=== PATIENT | female | born 1945 | race Caucasian/White ===

== ENCOUNTER 2024-09-09 17:06 | Outpatient (RCR) | payer MEDICARE, SELFPAY | END 2024-10-29 12:16 | disposition home or self-care (01) | LOC: PT 17:06 | PROVIDERS: PCP Family Medicine; Visit Provider Family Medicine | DX: R26.89 Other abnormalities of gait and mobility (principal); Z91.81 History of falling; W19.XXXD Unspecified fall, subsequent encounter | CPT/HCPCS: 97110; 97112; 97161 ==

== ENCOUNTER 2024-12-30 09:56 | Outpatient (OUT) | payer MEDICARE, SELFPAY ==
--- OUTSIDE RECORDS SUMMARY | 2024-12-18 23:59 | XMS_ITS | Continuity of Care Document ---
Author Organization [facility] Address [address] [place] [address] Care Team Providers Care School Counsellor Name Role Phone Rashad Calvillo Primary Care Physician Encounter ZOIE [id number] Date(s): 12/18/24 - 12/18/24 [facility] [address] [place] [id number]- Encounter Diagnosis Encounter to establish care with new provider(Discharge Diagnosis) - 12/18/24 BMI 27.0-27.9,adult(Discharge Diagnosis) - 12/18/24 Former smoker(Discharge Diagnosis) - 12/18/24 Anxiety(Discharge Diagnosis) - 12/18/24 HTN (hypertension)(Discharge Diagnosis) - 12/18/24 Discharge Disposition: Home (Routine DC) Attending Physician: PETE TORRES CNP Encounter Type: Clinic Allergies, Adverse Reactions, Alerts Substance Criticality Severity Reaction Reaction Severity Status penicillin G benzathine Syncope Active Assessment and Plan Future Appointments Appointment Date:12/24/2024 03:20:00 PM Scheduled Provider:PETE TORRES CNP Location:[facility] Appointment Type: Open Medications alprazolam 1 mg Tab 1 mg = 1 tab(s), Oral, TID, PRN for anxiety, # 30 tab(s), Refills(s) 0, Pharmacy: [facility], 161, cm, 12/18/24 9:23:00 EDT, Height/Length Dosing, 70.5, kg, 12/18/24 9:23:00 EDT, Weight Dosing Start Date: 12/18/24 Status: Ordered Quantity: 30.0 Unit: tab(s) Repeat number: 1 atorvastatin 20 mg Tab 20 mg, Oral, Daily, Refills(s) 0 Start Date: 09/02/24 Status: Ordered Repeat number: 1 buPROPion 300 mg/24 hours ER Tab 300 mg, Oral, Daily, Refills(s) 0 Start Date: 09/02/24 Status: Ordered Repeat number: 1 FLUoxetine 20 mg Cap 60 mg, Oral, Daily, Refills(s) 0 Start Date: 09/02/24 Status: Ordered Repeat number: 1 Linzess 145 mcg oral capsule 1 mcg, Oral, Once a day (at bedtime), Refills(s) 0 Start Date: 09/02/24 Status: Ordered Repeat number: 1 losartan 50 mg Tab 50 mg = 1 tab(s), Oral, Daily, # 90 tab(s), Refills(s) 1, Pharmacy: [facility], 161, cm, 12/18/24 9:23:00 EDT, Height/Length Dosing, 70.5, kg, 12/18/24 9:23:00 EDT, Weight Dosing Start Date: 12/18/24 Status: Ordered Quantity: 90.0 Unit: tab(s) Repeat number: 2 Indications: Essential (primary) hypertension; Anxiety disorder, unspecified; Personal history of nicotine dependence; Overweight; Persons encountering health services in other specified circumstances; Body mass index [BMI] 27.0-27.9, adult; Pantoprazole [address] Tab 40 mg, Oral, Once a day (at bedtime), Refills(s) 0 Start Date: 09/02/24 Status: Ordered Repeat number: 1 traZODONE 100 mg Tab 100 mg, Oral, Once a day (at bedtime), Refills(s) 0 Start Date: 09/02/24 Status: Ordered Repeat number: 1 Problem List Condition Confirmation Course Effective Dates Status H ealth Status Informant Anxiety Confirmed Active Overweight (BMI 25.0-29.9) Confirmed Active Constipation Confirmed Active Former smoker Confirmed Active Fall Confirmed Active Gastroesophageal reflux disease Confirmed Active HTN (hypertension) Confirmed Active Moderate major depression Confirmed Active BMI 27.0-27.9,adult Confirmed Active Procedures Procedure Date Related Diagnosis Body Site Status Hernia Completed Social History Social History Type Response Smoking Status Former smoker, quit more than 30 days ago; Tobacco Use: Former smoker 20 years ago;Never; Concerns about tobacco use in household: No; Smoking Cessation Yes entered on: 12/18/24 Sex Female Sex Representation Female (finding) Hospital Discharge Instructions Patient Education 12/18/2024 12:56:20 Managing Anxiety, Adult Managing Anxiety, Adult After being diagnosed with anxiety, you may be relieved to know why you have felt or behaved a certain way. You may also feel overwhelmed about the treatment ahead and what it will mean for your life. With care and support, you can manage your anxiety. How to manage lifestyle changes Understanding the difference between stress and anxiety Although stress can play a role in anxiety, it is not the same as anxiety. Stress is your body's reaction to life changes and events, both good and bad. Stress is often caused by something external, such as a deadline, test, or competition. It normally goes away after the event has ended and will last just a few hours. But, stress can be ongoing and can lead to more than just stress. Anxiety is caused by something internal, such as imagining a terrible outcome or worrying that something will go wrong that will greatly upset you. Anxiety often does not go away even after the eventis over, and it can become a long- term (chronic) worry. Lowering stress and anxiety Talk with your health care provider or a counselor to learn more about lowering anxiety and stress.They may suggest tension-reduction techniques, such as: ??? Music. Spend time creating or listening to music that you enjoy and that inspires you. ??? Mindfulness-based meditation. Practice being aware of your normal breaths while not trying to control your breathing. It can be done while sitting or walking. ??? Centering prayer. Focus on a word, phrase, or sacred image that means something to you and brings you peace. ??? Deep breathing. Expand your stomach and inhale slowly through your nose. Hold your breath for 3???5 seconds. Then breathe out slowly, letting your stomach muscles relax. ??? Self-talk. Learn to notice and spot thought patterns that lead to anxiety reactions. Change those patterns to thoughts that feel peaceful. ??? Muscle relaxation. Take time to tense muscles and then relax them. Choose a tension-reduction technique that fits your lifestyle and personality. These techniques take time and practice. Set aside 5???15 minutes a day to do them. Specialized therapists can offer counseling and training in these techniques. The training to help with anxiety may be covered by some insurance plans. Other things you can do to manage stress and anxiety include: ??? Keeping a stress diary. This can help you learn what triggers your reaction and then learn waysto manage your response. ??? Thinking about how you react to certain situations. You may not be able to control everything, but you can control your response. ??? Making time for activities that help you relax and not feeling guilty about spending your time in this way. ??? Doing visual imagery. This involves imagining or creating mental pictures to help you relax. ??? Practicing yoga. Through yoga poses, you can lower tension and relax. Medicines Medicines for anxiety include: ??? Antidepressant medicines. These are usually prescribed for long-term daily control. ??? Anti-anxiety medicines. These may be added in severe cases, especially when panic attacks occur. When used together, medicines, psychotherapy, and tension-reduction techniques may be the most effective treatment. Relationships Relationships can play a big part in helping you recover. Spend more time connecting with trusted friends and family members. Think about going to couples counseling if you have a partner, taking family education classes, or going to family therapy. Therapy can help you and others better understandyour anxiety. How to recognize changes in your anxiety Everyone responds differently to treatment for anxiety. Recovery from anxiety happens when symptomslessen and stop interfering with your daily life at home or work. This may mean that you will startto: ??? Have better concentration and focus. Worry will interfere less in your daily thinking. ??? Sleep better. ??? Be less irritable. ??? Have more energy. ??? Have improved memory. Try to recognize when your condition is getting worse. Contact your provider if your symptoms interfere with home or work and you feel like your condition is not improving. Follow these instructions at home: Activity ??? Exercise. Adults should: ??? Exercise for at least 150 minutes each week. The exercise should increase your heart rate and make you sweat (moderate-intensity exercise). ??? Do strengthening exercises at least twice a week. ??? Get the right amount and quality of sleep. Most adults need 7???9 hours of sleep each night. Lifestyle ??? Eat a healthy diet that includes plenty of vegetables, fruits, whole grains, low-fat dairy products, and lean protein. ??? Do not eat a lot of foods that are high in fats, added sugars, or salt (sodium). ??? Make choices that simplify your life. ??? Do not use any products that contain nicotine or tobacco. These products include cigarettes, chewing tobacco, and vaping devices, such as e-cigarettes. If you need help quitting, ask your provider. ??? Avoid caffeine, alcohol, and certain uypf-jfk-gduyspk cold medicines. These may make you feel worse. Ask your pharmacist which medicines to avoid. General instructions ??? Take gtuc-nrp-ebvcqjt and prescription medicines only as told by your provider. ??? Keep all follow-up visits. This is to make sure you are managing your anxiety well or if you need more support. Where to find support You can get help and support from: ??? Self-help groups. ??? Online and community organizations. ??? A trusted spiritual leader. ??? Couples counseling. ??? Family education classes. ??? Family therapy. Where to find more information You may find that joining a support group helps you deal with your anxiety. The following sources can help you find counselors or support groups near you: ??? Mental Health [place]: mentalhealthamerica.net ??? Anxiety and Depression Association of [place] (ADAA): adaa.org ??? National [place] on Mental Illness (BC): bc.org Contact a health care provider if: ??? You have a hard time staying focused or finishing tasks. ??? You spend many hours a day feeling worried about everyday life. ??? You are very tired because you cannot stop worrying. ??? You start to have headaches or often feel tense. ??? You have chronic nausea or diarrhea. Get help right away if: ??? Your heart feels like it is racing. ??? You have shortness of breath. ??? You have thoughts of hurting yourself or others. Get help right away if you feel like you may hurt yourself or others, or have thoughts about takingyour own life. Go to your nearest emergency room or: ??? Call 911. ??? Call the National Suicide Prevention Lifeline at or 544. This is open 24 hours aday. ??? Text the Crisis Text Line at 636862. This information is not intended to replace advice given to you by your health care provider. Make sure you discuss any questions you have with your health care provider. Document Revised: 03/14/2023 Document Reviewed: 09/26/2021 Elsevier Patient Education ?? 2023 [employer] Follow Up Care 09/02/2024 16:41:07 With:PETE TORRES CNP, FAM Address: [address] [place] [phone] Business (1) When:5 to 7 days Comments:Laboratory test results & abdominal pain Patient Care team information Care Team Personnel Name: Rajinder HUIZAR, Rashad Larose Member Role: Primary Care Physician Address: [address] [place] [address] [[email or web address]] Telecom: Care Team Related Persons Name: Grady Tillman Insurance Providers Guarantor name: Health Plan Information #: 1 Payer: NA Payer Identifier: [id number] Member Number: [id number] Group Number: [id number] Subscriber Identifier: [id number] Relationship to Subscriber: Self Coverage Type: MEDICARE Coverage Verification Date: 24 Telecom: CLIFF Address:
--- OUTSIDE RECORDS SUMMARY | 2024-12-18 23:59 | XMS_ITS | Continuity of Care Document ---
Author Organization [facility] Address Unknown Care Team Providers Care Shuttle Van Driver Name Role Phone Rashad Calvillo Primary Care Physician Encounter _[facility] [id number] Date(s): 12/18/24 - 12/18/[address] [place] [address]- Discharge Disposition: Home (Routine DC) Attending Physician: PETE TORRES CNP Admitting Physician: PETE TORRES CNP Encounter Type: Lab Drop off Allergies, Adverse Reactions, Alerts Substance Criticality Severity Reaction Reaction Severity Status penicillin G benzathine Syncope Active Assessment and Plan Future Appointments Appointment Date:12/24/2024 03:20:00 PM Scheduled Provider:PETE TORRES CNP Location:[facility] Appointment Type: Open Medications alprazolam 1 mg Tab 1 mg = 1 tab(s), Oral, TID, PRN for anxiety, # 30 tab(s), Refills(s) 0, Pharmacy: [facility], 161, cm, 12/18/24 9:23:00 EDT, Height/Length Dosing, [...] Daily, # 90 tab(s), Refills(s) 1, Pharmacy: [facility], 161, cm, 12/18/24 9:23:00 EDT, Height/Length Dosing, [...] Related Diagnosis Body Site Status Hernia Completed Results Laboratory List Name Date CBC w/ Auto Diff 12/18/24 Comprehensive Metabolic Panel (CMP) Lipid Panel 12/18/24 TSH With T4fr Reflex 12/18/24 eGFR 12/18/24 Most recent to oldest [Reference Range]: 1 A/G Ratio [1.1-2.2] 1.5 (12/18/24 10:10 AM) BUN/Creat Ratio [10-20] 17 (12/18/24 10:10 AM) AGAP [6-16 mEq/L] 13 mEq/L (12/18/24 10:10 AM) Albumin Lvl [3.3-5.0 gm/dL] 4.3 gm/dL (12/18/24 10:10 AM) Alk Phos [21-98 Int._Unit/L] 83 Int._Uni t/L (12/18/24 10:10 AM) ALT [6-46 Int._Unit/L] 22 Int._Unit/L (12/18/24 10:10 AM) AST [5-43 Int._Unit/L] 27 Int._Unit/L (12/18/24 10:10 AM) Basophil Auto [0.0-2.0 %] 0.5 % (12/18/24 10:10 AM) Bili Total [0.0-1.1 mg/dL] 0.6 mg/dL (12/18/24 10:10 AM) Chol [120-200 mg/dL] 170 mg/dL (12/18/24 10:10 AM) CO2 [21-31 mmol/L] 26 mmol/L (12/18/24 10:10 AM) Eos Auto [0.0-8.0 %] 2.7 % (12/18/24 10:10 AM) Glucose Lvl [55-199 mg/dL] 82 mg/dL (12/18/24 10:10 AM) Hct [34.0-46.0 %] 41.5 % (12/18/24 10:10 AM) HDL 56 mg/dL 1 *NA* (12/18/24 10:10 AM) Hgb [12.0-16.0 gm/dL] 13.8 gm/dL (12/18/24 10:10 AM) Lymph Auto [14.0-50.0 %] 23.4 % (12/18/24 10:10 AM) RBC [4.3-5.9 E12/L] 4.5 E12/L (12/18/24 10:10 AM) RDW [10.9-14.2 %] 15.1 % *HI* (12/18/24 10:10 AM) Sodium Lvl [135-145 mmol/L] 138 mmol/L (12/18/24 10:10 AM) Total Protein [6.0-7.8 gm/dL] 7.2 gm/dL (12/18/24 10:10 AM) Trig [<=149 mg/dL] 128 mg/dL (12/18/24 10:10 AM) TSH [0.34-5.60 mcIU/mL] 2.64 mcIU/mL (12/18/24 10:10 AM) MCH [27.0-34.0 pg] 31.0 pg (12/18/24 10:10 AM) MCHC [31.4-36.0 gm/dL] 33.3 gm/dL (12/18/24 10:10 AM) MCV [80.0-100.0 fL] 93.0 fL (12/18/24 10:10 AM) [place] Auto [4.0-14.0 %] 7.5 % (12/18/24 10:10 AM) MPV [6.4-10.8 fL] 8.8 fL (12/18/24 10:10 AM) Neutro Auto [36.0-75.0 %] 65.9 % (12/18/24 10:10 AM) BUN [5-21 mg/dL] 15 mg/dL (12/18/24 10:10 AM) Calcium Lvl [8.9-11.1 mg/dL] 9.5 mg/dL (12/18/24 10:10 AM) Platelet [150.0-500.0 E9/L] 350.0 E9/L (12/18/24 10:10 AM) Potassium Lvl [3.5-5.3 mmol/L] 4.0 mmol/ L (12/18/24 10:10 AM) WBC [4.0-11.0 E9/L] 6.6 E9/L (12/18/24 10:10 AM) LDL Direct [<=129 mg/dL] 90 mg/dL (12/18/24 10:10 AM) Chloride [101-111 mmol/L] 103 mmol/L (12/18/24 10:10 AM) [place] Absolute [0.2-1.0 E9/L] 0.5 E9/L (12/18/24 10:10 AM) Eos Absolute [0.0-0.5 E9/L] 0.2 E9/L (12/18/24 10:10 AM) Basophil Absolute [0.0-0.2 E9/L] 0.0 E9/ L (12/18/24 10:10 AM) Neutro Absolute [2.0-7.5 E9/L] 4.4 E9/L (12/18/24 10:10 AM) Lymph Absolute [1.0-4.0 E9/L] 1.5 E9/L (12/18/24 10:10 AM) eGFR [>=59 mL/min/1.73 m2] 64 mL/min/1.7 3 m2 (12/18/24 10:10 AM) Globulin [1.4-4.0 gm/dL] 2.9 gm/dL (12/18/24 10:10 AM) VLDL [7-40 mg/dL] 26 mg/dL (12/18/24 10:10 AM) Creatinine [0.5-1.3 mg/dL] 0.9 mg/dL (12/18/24 10:10 AM) 1Result Comment: '>= 60 LOW RISK' '<= 40 HIGH RISK' Social History Social History Type Response Smoking Status Former smoker, quit more than 30 days ago; Tobacco Use: Former smoker 20 years ago;Never; Concerns about tobacco use in household: No; Smoking Cessation Yes entered on: 12/18/24 Sex Female Sex Representation Female (finding) Patient Care team information Care Team Personnel Name: Rashad Calvillo MD Member Role: Primary Care Physician Address: [address] [place] [address] Telecom: Care Team Related Persons Name: Grady Tillman Insurance Providers Guarantor name: Health Plan Information #: 1 Payer: NA Payer Identifier: [id number] Member Number: [id number] Group Number: [id number] Subscriber Identifier: [id number] Relationship to Subscriber: Self Coverage Type: MEDICARE Coverage Verification Date: NA Telecom: NA Address: NA
--- NOTE | 2024-12-30 10:04 | XR_ITS ---
The [address] [address] Patient Name: MARY CARMEN ALCARAZ MRN: [id number] date: 1945 Sex: F Assigned Patient Location: [facility] Current Patient Location: [facility] Accession/Order Number: [id number] Exam Date: 12/30/2024 11:04 Report Date: 12/30/2024 11:06 At the request of: PETE TORRES NP Procedure: XR abdomen 1V SINGLE VIEW ABDOMEN CLINICAL DATA: Left-sided abdominal pain and fecal incontinence at night. COMPARISON: None Supine views of the abdomen and pelvis were obtained. There is air within the colon as well as mild to moderate stool, greater on the left. There is some small bowel air, without disproportionate distention. No soft tissue masses or suspect renal calculi are noted. The bony structures are osteopenic. There is subtle levoscoliotic curvature and endplate spurring. XR/XR abdomen 1V IMPRESSION: NONSPECIFIC, NONOBSTRUCTIVE BOWEL GAS PATTERN. Impression dictated by: Kylah Germain M.D. 12/30/2024 11:06 AM Dictation Location: [place] [address] Electronically authenticated by: [id number] Y Date: 12/30/2024 11:06
== END 2024-12-30 09:57 | disposition home or self-care (01) ==
LOC: RAD 09:58
PROVIDERS: PCP Nurse Practitioner Family; Visit Provider Nurse Practitioner Family
DX: R10.9 Unspecified abdominal pain (principal); R15.9 Full incontinence of feces
CPT/HCPCS: 74018

== ENCOUNTER 2025-02-07 18:02 | Emergency (ER) | payer MEDICARE, SELFPAY ==
[2025-02-07] VITALS (36 sets, daily range): BP systolic 89–152; BP diastolic 66–106; PULSE 74–101; TEMP 37–37.3; O2SAT 93–99; BMI 26.6
--- NOTE | 2025-02-07 18:10 | ECG_ITS ---
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
[2025-02-07 18:22] LABS: Hematocrit 36.2 % (36.0-48.0); Hemoglobin 11.9 g/dL (12.0-16.0); Immature Granulocytes Abs Auto 0.03 10^3/uL (0.00-0.03); Immature Granulocytes Pct Auto 0.3 % (0.0-0.5); Lymphocytes Absolute Auto 1.3 10^3/uL (1.2-3.8); Mean Corpuscular HGB Conc 32.9 g/dL (29.9-35.2); Mean Corpuscular Hemoglobin 31.6 pg (26.7-34.0); Mean Corpuscular Volume 96.0 fL (81.0-99.0); Platelet Count 301 10^3/uL (150-450); Red Blood Count 3.77 10^6/uL (4.20-5.40); White Blood Count 8.6 10^3/uL (4.0-11.0)
--- NOTE | 2025-02-07 18:28 | CT_ITS ---
The [address] [address] Patient Name: MARY CARMEN ALCARAZ MRN: [id number] date: 1945 Sex: F Assigned Patient Location: ED.MAIN Current Patient Location: ED.MAIN Accession/Order Number: [id number] Exam Date: 02/07/2025 19:15 Report Date: 02/07/2025 19:51 At the request of: JOSÉ LUIS CARMONA DO Procedure: CT abdomen pelvis w con CT Abdomen and Pelvis withcontrast TECHNIQUE: Axial imaging with 2-D reconstruction.1 cc of Omnipaque 300. The CT exam was performed using one or more the following dose reduction techniques: Automated exposure control, adjustment of the MA and/or Kv according to patient size, or use of the iterative reconstruction technique. COMPARISON: None History: Dizziness. Left shoulder pain. Recent colonoscopy. Tachycardia. LIMITATIONS: None LOWER THORAX Unremarkable LIVER: Unremarkable GALLBLADDER: No gallbladder abnormality identified. BILE DUCTS: No dilatation SPLEEN: Unremarkable PANCREAS: Unremarkable ADRENAL GLANDS: Unremarkable KIDNEYS:Unremarkable AORTA: No abdominal aortic aneurysm identified. Moderate atherosclerosis RETROPERITONEUM: No significant retroperitoneal abnormalities identified. MESENTERY:Unremarkable STOMACH:Unremarkable SMALL BOWEL: The small bowel loops are nondistended. APPENDIX: The appendix is normal. COLON: Diverticulosis. No extraluminal air seen. URINARY BLADDER: Urinary bladder is unremarkable. REPRODUCTIVE SYSTEM: Reproductive structures are unremarkable. PNEUMOPERITONEUM: Small foci of extraluminal air in region of splenic flexure. PERITONEAL FLUID:High density collection of fluid in the left upper quadrant adjacent to the spleen. High density fluid in the dependent portion of the pelvis. Small amount of fluid adjacent to the liver. BONY STRUCTURES: Unremarkable ABDOMINAL WALL: Unremarkable CT/CT abdomen pelvis w con IMPRESSION: Concern for hemoperitoneum with highest concentration in the left upper quadrant adjacent to the splenic flexure. Small regions of extraluminal air identified in the the splenic flexure. Impression dictated by: Ervin Westbrook M.D. 02/07/2025 7:51 PM Dictation [facility] Electron[facility] authenticated by: [id number] Y Date: 02/07/2025 19:51
--- NOTE | 2025-02-07 18:31 | XR_ITS ---
The [address] [address] Patient Name: MARY CARMEN ALCARAZ MRN: [id number] date: 1945 Sex: F Assigned Patient Location: ED.MAIN Current Patient Location: ED.MAIN Accession/Order Number: [id number] Exam Date: 02/07/2025 19:10 Report Date: 02/07/2025 19:37 At the request of: JOSÉ LUIS CARMONA DO Procedure: XR chest 1V Plain film chest Single view HISTORY: Dizziness. Left shoulder pain COMPARISON: None FINDINGS: SUPPORT DEVICES: None POSTSURGICAL CHANGES: None HEART: Within normal limits PULMONARY LORENZO: Within normal limits MEDIASTINUM: Unremarkable LUNGS AND PLEURA: No acute lung process, pleural effusion or pneumothorax identified. BONY STRUCTURES: Intact ADDITIONAL FINDINGS None XR/XR chest 1V IMPRESSION: No acute process. Impression dictated by: Ervin Westbrook M.D. 02/07/2025 7:37 PM Dictation Location: [employer] Electronically authenticated by: [id number] Y Date: 02/07/2025 19:37
[2025-02-07 18:38] LABS: Alanine Aminotransferase 36 U/L (14-59); Albumin Globulin Ratio 1.0; Albumin Level 3.4 g/dL (3.4-5.0); Alkaline Phosphatase 80 U/L (46-116); Anion Gap 15.5; Aspartate Amino Transferase 34 U/L (15-37); Blood Urea Nitrogen 16.0 mg/dL (7.0-18.0); Calcium 9.3 mg/dL (8.5-10.1); Carbon Dioxide 25.1 mmol/L (21.0-32.0); Chloride 106 mmol/L (98-107); Estimated GFR (African America 60 (>=60 mL/min/1.73m^2); Estimated GFR (Non-African Ame 49 (>=60 mL/min/1.73m^2); Globulin 3.3 g/dL; Glucose 175 mg/dL (74-106); Potassium 4.6 mmol/L (3.5-5.1); Sodium 142 mmol/L (136-145); Total Protein 6.7 g/dL (6.4-8.2)
[2025-02-07] MEDS: 0.9 % SODIUM CHLORIDE 1,000 ML 999 ML IV (19:00)
--- NOTE | 2025-02-07 19:36 | ED.GENADUL1 ---
Documented by User: Elio Chi DO 02/07/25 19:41 HPI HPI - General Adult General Chief complaint: Dizziness Stated complaint: CHEST PAIN Time Seen by Provider: 02/07/25 18:06 Source: patient Mode of arrival: ambulance History of Present Illness HPI narrative: Patient is an 80-year-old female presenting to the emergency department for concerns of dizziness and weakness. Patient states that she underwent routine colonoscopy today. She states the procedure went well, however when she went home, she felt weak and could not get out of the bathtub. Her family called EMS. She states she feels weak, likely because she has not eaten anything over the last 2 days. She denies any chest pain or shortness of breath. No nausea or vomiting. She endorses some mild abdominal discomfort. No constipation, diarrhea, or bloody stools. Per EMS, the patient's heart rate was in the 200s and believed she was in SVT. She was given 6 mg IV adenosine in the field, with resolution of her tachycardia. Patient now is currently asymptomatic, just feels slightly weak. Related Data Allergies Allergy/AdvReac Type Severity Reaction Status Date / Time Penicillins AdvReac Severe syncope Verified 02/07/25 18:04 Opioid HPI Opioid Management Most Recent Opioid Data: Last Pain Scale 10 02/07/25, 23:54 Last MAR Pain Assessment 02/07/25, 23:54 Review of Systems ROS Status of ROS 10 or more systems reviewed and unremarkable except as noted in history and below PFSH PFSH Social History Little interest or pleasure in doing things: not at all Feeling down, depressed, or hopeless: not at all Exam Narrative Exam Narrative: CONSTITUTIONAL: Well-appearing, answering questions and following commands appropriately SKIN: Was warm and dry. EYES: No conjunctival pallor EARS, NOSE, THROAT: Neck was supple. There was no jugular venous distention. RESPIRATORY: Clear to auscultation bilaterally, no wheezes, crackles, or stridor, no use of accessory muscles CARDIOVASCULAR: Normal rate and regular rhythm. There is no S3, S4, murmur, rub. GASTROINTESTINAL: Abdomen is mildly tender to palpation throughout with mild distention. No rebound tenderness or guarding. MUSCULOSKELETAL: There was no lower extremity edema, erythema, or tenderness. NEUROLOGIC: Patient is awake and alert. Equal strength in all extremities. Facies were symmetrical. Constitutional Vital Signs, click to edit/add: Last Vital Signs Temp 99.1 F 02/07/25 22:35 Pulse 95 H 02/07/25 22:35 Resp 18 02/07/25 22:35 BP 127/99 H 02/07/25 22:35 Pulse Ox 97 02/07/25 22:35 O2 Del Method Room Air 02/07/25 22:35 Course Vital Signs Vital signs: Vital Signs Temperature 98.6 F 02/07/25 18:04 Pulse Rate 78 02/07/25 18:04 Respiratory Rate 20 02/07/25 18:04 Blood Pressure 89/66 02/07/25 18:04 Pulse Oximetry 97 02/07/25 18:04 Temperature 99.1 F 02/07/25 22:35 Pulse Rate 95 H 02/07/25 22:35 Respiratory Rate 18 02/07/25 22:35 Blood Pressure 127/99 H 02/07/25 22:35 Pulse Oximetry 97 02/07/25 22:35 Oxygen Delivery Method Room Air 02/07/25 22:35 Medical Decision Making MDM Narrative Medical decision making narrative: Patient is an 80-year-old female presenting to the emergency department for generalized weakness after undergoing routine colonoscopy earlier today. According to EMS, the patient's heart rate was in the 200s and required 6 mg IV adenosine for suspected SVT. On arrival to MD, patient was placed on the manager monitoring that demonstrated normal sinus rhythm by my interpretation. She has a soft blood pressure of 89/66, but is otherwise hemodynamically stable and afebrile. She generally appears fatigued, but nontoxic and mentating appropriately. She has mild tenderness palpation throughout abdomen with mild distention, however no peritoneal signs or rebound tenderness. Differential diagnose includes dehydration, complications from colonoscopy such as microperforations, ACS, arrhythmia, or other electrolyte/metabolic derangement. IV was established and laboratory studies were obtained. CT abdomen/pelvis was ordered to further investigate. She was given 1 L bolus normal saline for rehydration. 12 Lead EKG: Normal sinus rhythm at a rate of 81. Normal axis. No ST segment elevations. QRS, MI, and QTc interval within normal limits. Final impression: normal sinus rhythm without evidence of acute myocardial ischemia My shift is now coming to an end. At the time of signout to Dr. Quiroga, laboratory studies and CT abdomen/pelvis were pending. Lab Data Labs: Lab Results 02/07/25 02/07/25 Range/Units 18:09 22:11 WBC 8.6 (4.0-11.0) 10^3/uL RBC 3.77 L (4.20-5.40) 10^6/uL Hgb 11.9 L (12.0-16.0) g/dL Hct 36.2 (36.0-48.0) % MCV 96.0 (81.0-99.0) fL MCH 31.6 (26.7-34.0) pg MCHC 32.9 (29.9-35.2) g/dL RDW 14.1 (11.0-15.0) % Plt Count 301 (150-450) 10^3/uL MPV 9.6 (9.5-13.5) fL Neut % (Auto) 78.5 H (43.0-75.0) % Lymph % (Auto) 14.6 L (20.5-60.0) % Tillman % (Auto) 6.1 (1.7-12.0) % Eos % (Auto) 0.3 L (0.9-7.0) % Baso % (Auto) 0.2 (0.2-2.0) % Neut # (Auto) 6.7 H (1.4-6.5) 10^3/uL Lymph # (Auto) 1.3 (1.2-3.8) 10^3/uL Tillman # (Auto) 0.5 (0.3-0.8) 10^3/uL Eos # (Auto) 0.0 (0.0-0.7) 10^3/uL Baso # (Auto) 0.0 (0.0-0.1) 10^3/uL Abs Immat Gran (auto) 0.03 (0.00-0.03) 10^3/uL Imm/Tot Granulo (auto) 0.3 (0.0-0.5) % Sodium 142 (136-145) mmol/L Potassium 4.6 (3.5-5.1) mmol/L Chloride 106 (98-107) mmol/L Carbon Dioxide 25.1 (21.0-32.0) mmol/L Anion Gap 15.5 BUN 16.0 (7.0-18.0) mg/dL Creatinine 1.07 H (0.55-1.02) mg/dL Est GFR ( Amer) 60 (>=60 mL/min/1.73m^2) Est GFR (Non-Af Amer) 49 L (>=60 mL/min/1.73m^2) BUN/Creatinine Ratio 15.0 Glucose 175 H (74-106) mg/dL Calcium 9.3 (8.5-10.1) mg/dL Total Bilirubin 0.5 (0.2-1.0) mg/dL AST 34 (15-37) U/L ALT 36 (14-59) U/L Alkaline Phosphatase 80 (46-116) U/L Troponin I High Sens 13.4 (4.0-51.3) pg/mL Total Protein 6.7 (6.4-8.2) g/dL Albumin 3.4 (3.4-5.0) g/dL Globulin 3.3 g/dL Albumin/Globulin Ratio 1.0 Urine Color Lt. yellow (YELLOW) Urine Clarity Sl cloudy (CLEAR) Urine pH 5.5 (5.0-9.0) Ur Specific [employer] 1.010 (1.005-1.025) Urine Protein Negative (NEG/TRACE) mg/dL Urine Glucose (UA) Negative (NEGATIVE) mg/dL Urine Ketones Negative (NEGATIVE) mg/dL Urine Occult Blood Trace-i (NEGATIVE) Urine Nitrite Negative (NEGATIVE) Urine Bilirubin Negative (NEGATIVE) Urine Urobilinogen 0.2 (0.2-1.0) EU/dL Ur Leukocyte Esterase Negative (NEGATIVE) Urine RBC 2-5 A (0-2) #/HPF Urine WBC 0-2 A (NONE SEEN) #/HPF Ur Squamous Epith Cells None seen (NONE/RARE) #/LPF Urine Crystals None seen (None Seen) #/HPF Urine Bacteria None seen (NONE SEEN) #/HPF Urine Casts None seen (NONE SEEN) #/LPF Urine Mucus None seen (NONE SEEN) Ur Culture Indicated? No Discharge Plan Discharge Chief Complaint: Dizziness Clinical Impression: Abdominal pain, Colon perforation Patient Disposition: [facility] Documented by User: Cristi Quiroga MD 02/08/25 00:03 HPI HPI - General Adult General Chief complaint: Dizziness Stated complaint: CHEST PAIN Time Seen by Provider: 02/07/25 18:06 Related Data Allergies Allergy/AdvReac Type Severity Reaction Status Date / Time Penicillins AdvReac Severe syncope Verified 02/07/25 18:04 Opioid HPI Opioid Management Most Recent Opioid Data: Last Pain Scale 10 02/07/25, 23:54 Last MAR Pain Assessment 02/07/25, 23:54 PFSH PFSH Social History Little interest or pleasure in doing things: not at all Feeling down, depressed, or hopeless: not at all Exam Constitutional Vital Signs, click to edit/add: Last Vital Signs Temp 99.1 F 02/07/25 22:35 Pulse 95 H 02/07/25 22:35 Resp 18 02/07/25 22:35 BP 127/99 H 02/07/25 22:35 Pulse Ox 97 02/07/25 22:35 O2 Del Method Room Air 02/07/25 22:35 Course Vital Signs Vital signs: Vital Signs Temperature 98.6 F 02/07/25 18:04 Pulse Rate 78 02/07/25 18:04 Respiratory Rate 20 02/07/25 18:04 Blood Pressure 89/66 02/07/25 18:04 Pulse Oximetry 97 02/07/25 18:04 Temperature 99.1 F 02/07/25 22:35 Pulse Rate 95 H 02/07/25 22:35 Respiratory Rate 18 02/07/25 22:35 Blood Pressure 127/99 H 02/07/25 22:35 Pulse Oximetry 97 02/07/25 22:35 Oxygen Delivery Method Room Air 02/07/25 22:35 Medical Decision Making MDM Narrative Medical decision making narrative: Patient is an 80-year-old female presenting to the emergency department for generalized weakness after undergoing routine colonoscopy earlier today. According to EMS, the patient's heart rate was in the 200s and required 6 mg IV adenosine for suspected SVT. On arrival to MD, patient was placed on the manager monitoring that demonstrated normal sinus rhythm by my interpretation. She has a soft blood pressure of 89/66, but is otherwise hemodynamically stable and afebrile. She generally appears fatigued, but nontoxic and mentating appropriately. She has mild tenderness palpation throughout abdomen with mild distention, however no peritoneal signs or rebound tenderness. Differential diagnose includes dehydration, complications from colonoscopy such as microperforations, ACS, arrhythmia, or other electrolyte/metabolic derangement. IV was established and laboratory studies were obtained. CT abdomen/pelvis was ordered to further investigate. She was given 1 L bolus normal saline for rehydration. 12 Lead EKG: Normal sinus rhythm at a rate of 81. Normal axis. No ST segment elevations. QRS, MI, and QTc interval within normal limits. Final impression: normal sinus rhythm without evidence of acute myocardial ischemia My shift is now coming to an end. At the time of signout to Dr. Quiroga, laboratory studies and CT abdomen/pelvis were pending. CT returns with finding of hemoperitoneum left upper quad. Discussed with gastroenterology at [facility] who recommended contacting surgery at [facility]. Discussed with Surgery at [facility] who stated That [facility] does not have the availability of interventionalist Radiologist and recommended transfer to a different facility. Discussed with [facility] Surgery who also did not feel she was a candidate for their hospital. discussed with [facility] Trauma surgeon who felt this was a perforation and did not need trauma eval. Spoke to transportation escort surgery at [facility] again who recommended transfer to [facility]. Dr Pierce contacted and accepted the patient at [facility] Lab Data Labs: Lab Results 02/07/25 02/07/25 Range/Units 18:09 22:11 WBC 8.6 (4.0-11.0) 10^3/uL RBC 3.77 L (4.20-5.40) 10^6/uL Hgb 11.9 L (12.0-16.0) g/dL Hct 36.2 (36.0-48.0) % MCV 96.0 (81.0-99.0) fL MCH 31.6 (26.7-34.0) pg MCHC 32.9 (29.9-35.2) g/dL RDW 14.1 (11.0-15.0) % Plt Count 301 (150-450) 10^3/uL MPV 9.6 (9.5-13.5) fL Neut % (Auto) 78.5 H (43.0-75.0) % Lymph % (Auto) 14.6 L (20.5-60.0) % Tillman % (Auto) 6.1 (1.7-12.0) % Eos % (Auto) 0.3 L (0.9-7.0) % Baso % (Auto) 0.2 (0.2-2.0) % Neut # (Auto) 6.7 H (1.4-6.5) 10^3/uL Lymph # (Auto) 1.3 (1.2-3.8) 10^3/uL Tillman # (Auto) 0.5 (0.3-0.8) 10^3/uL Eos # (Auto) 0.0 (0.0-0.7) 10^3/uL Baso # (Auto) 0.0 (0.0-0.1) 10^3/uL Abs Immat Gran (auto) 0.03 (0.00-0.03) 10^3/uL Imm/Tot Granulo (auto) 0.3 (0.0-0.5) % Sodium 142 (136-145) mmol/L Potassium 4.6 (3.5-5.1) mmol/L Chloride 106 (98-107) mmol/L Carbon Dioxide 25.1 (21.0-32.0) mmol/L Anion Gap 15.5 BUN 16.0 (7.0-18.0) mg/dL Creatinine 1.07 H (0.55-1.02) mg/dL Est GFR ( Amer) 60 (>=60 mL/min/1.73m^2) Est GFR (Non-Af Amer) 49 L (>=60 mL/min/1.73m^2) BUN/Creatinine Ratio 15.0 Glucose 175 H (74-106) mg/dL Calcium 9.3 (8.5-10.1) mg/dL Total Bilirubin 0.5 (0.2-1.0) mg/dL AST 34 (15-37) U/L ALT 36 (14-59) U/L Alkaline Phosphatase 80 (46-116) U/L Troponin I High Sens 13.4 (4.0-51.3) pg/mL Total Protein 6.7 (6.4-8.2) g/dL Albumin 3.4 (3.4-5.0) g/dL Globulin 3.3 g/dL Albumin/Globulin Ratio 1.0 Urine Color Lt. yellow (YELLOW) Urine Clarity Sl cloudy (CLEAR) Urine pH 5.5 (5.0-9.0) Ur Specific [employer] 1.010 (1.005-1.025) Urine Protein Negative (NEG/TRACE) mg/dL Urine Glucose (UA) Negative (NEGATIVE) mg/dL Urine Ketones Negative (NEGATIVE) mg/dL Urine Occult Blood Trace-i (NEGATIVE) Urine Nitrite Negative (NEGATIVE) Urine Bilirubin Negative (NEGATIVE) Urine Urobilinogen 0.2 (0.2-1.0) EU/dL Ur Leukocyte Esterase Negative (NEGATIVE) Urine RBC 2-5 A (0-2) #/HPF Urine WBC 0-2 A (NONE SEEN) #/HPF Ur Squamous Epith Cells None seen (NONE/RARE) #/LPF Urine Crystals None seen (None Seen) #/HPF Urine Bacteria None seen (NONE SEEN) #/HPF Urine Casts None seen (NONE SEEN) #/LPF Urine Mucus None seen (NONE SEEN) Ur Culture Indicated? No Discharge Plan Discharge Chief Complaint: Dizziness Clinical Impression: Abdominal pain, Colon perforation Patient Disposition: [facility]
--- NOTE | 2025-02-07 22:13 | PC.NURSE ---
C/O upper abdomen ache 11/26 .
[2025-02-07 22:19] LABS: Glucose Urine UA NEGATIVE (NEGATIVE)
[2025-02-07 22:33] LABS: Cast Seen? NONE SEEN #/LPF (NONE SEEN); Crystals Seen? None Seen #/HPF (None Seen)
[2025-02-07 22:34] LABS: Urine Culture Indicated NO
[2025-02-07] MEDS: MORPHINE SULFATE 2 MG/ML SYRINGE IV (23:54)
[2025-02-08] VITALS (10 sets, daily range): BP systolic 118–130; BP diastolic 78–82; PULSE 70–76; TEMP 37.2; O2SAT 93–94
== END 2025-02-08 02:00 | disposition short-term general hospital (02) ==
PROVIDERS: Student in an Organized Health Care Education/Training Program; Emergency Provider Internal Medicine; PCP Nurse Practitioner Family
DX: K63.1 Perforation of intestine (nontraumatic) (principal); R10.9 Unspecified abdominal pain; Z98.890 Other specified postprocedural states
CPT/HCPCS: 36415; 71045; 74177; 80053; 81001; 84484; 85025; 93005; 96361; 96374; 99285; J2270; Q9967

== ENCOUNTER 2025-02-10 20:28 | Emergency (ER) | payer MEDICARE, SELFPAY ==
--- OUTSIDE RECORDS SUMMARY | 2025-02-06 23:59 | XMS_ITS | Continuity of Care Document ---
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 Name Role Phone BRIAN PETE Sanches Primary Care Physician [phone] Encounter FT_FIN [id number] Date(s): 02/06/25 - 02/06/[address] [address]- Discharge Disposition: Home (Routine DC) Attending Physician: Russ Nguyen MD Admitting Physician: Russ Nguyen MD Referring Physician: Russ Nguyen MD Encounter Type: Outpatient Allergies, Adverse Reactions, Alerts Substance Criticality Severity Reaction Reaction Severity Status penicillin G benzathine Syncope Active Assessment and Plan Extracted from: Title:1Preop H&P Author:Russ Nguyen MD Date:02/06/25 Impression and Plan Impression: Stool incontinence Plan: Colonoscopy Extracted from: Title:ANES Pre-operative Note Author:Krish HUIZAR, Andrzej Potts Date:02/06/25 Plan [place] [employer] (ASA) physical status classification: Class II. Anesthetic Preoperative Plan: Anesthesia General. Future Appointments Appointment Date:02/07/2025 12:00:00 PM Scheduled Provider: Location:[facility] Appointment Type:Surgery FT Medications alprazolam 1 mg Tab 1 mg = 1 tab(s), Oral, TID, PRN for anxiety, # 30 tab(s), Refills(s) 0, Pharmacy: [facility], 161, cm, 12/18/24 9:23:00 EDT, Height/Length Dosing, 70.5, kg, 12/18/24 9:23:00 EDT, Weight Dosing Start Date: 12/18/24 Status: Ordered Quantity: 30.0 Unit: tab(s) Repeat number: 1 alprazolam 1 mg Tab 1 mg = 1 tab(s), Oral, TID, PRN for anxiety, # 30 tab(s), Refills(s) 0, Pharmacy: [facility], 161, cm, 01/02/25 13:57:00 EDT, Height/Length Dosing, 70.4, kg, 01/02/25 13:57:00 EDT, Weight Dosing Start Date: 01/15/25 Status: Ordered Quantity: 30.0 Unit: tab(s) Repeat number: 1 atorvastatin 20 mg Tab 20 mg, Oral, Daily, # 90 tab(s), Refills(s) 1, Pharmacy: [facility], 161, cm, 12/24/24 15:17:00 EDT, Height/Length Dosing, 71.9, kg, 12/24/24 15:17:00 EDT, Weight Dosing Start Date: 12/24/24 Status: Ordered Quantity: 90.0 Unit: tab(s) Repeat number: 2 buPROPion 300 mg/24 hours ER Tab 300 mg, Oral, Daily, Refills(s) 0, Depression Start Date: 09/02/24 Status: Ordered Repeat number: 1 FLUoxetine 20 mg Cap 60 mg, Oral, Daily, # 90 cap(s), Refills(s) 0, Pharmacy: [facility], 161, cm, 01/02/25 13:57:00 EDT, Height/Length Dosing, 70.4, kg, 01/02/25 13:57:00 EDT, Weight Dosing Start Date: 01/23/25 Status: Ordered Quantity: 90.0 Unit: cap(s) Repeat number: 1 Linzess 145 mcg oral capsule 1 mcg, Oral, Once a day (at bedtime), Refills(s) 0, Constipation Start Date: 09/02/24 Status: Ordered Repeat number: 1 losartan 50 mg Tab 50 mg = 1 tab(s), Oral, Daily, # 90 tab(s), Refills(s) 1, Pharmacy: [facility], 161, cm, 12/18/24 9:23:00 EDT, Height/Length Dosing, 70.5, kg, 12/18/24 9:23:00 EDT, Weight Dosing Start Date: 12/18/24 Status: Ordered Quantity: 90.0 Unit: tab(s) Repeat number: 2 Indications: Essential (primary) hypertension; Anxiety disorder, unspecified; Personal history of nicotine dependence; Overweight; Persons encountering health services in other specified circumstances; Body mass index [BMI] 27.0-27.9, adult; Metamucil 3.4 g/5.2 g oral powder 3.4 gram, Oral, TID, PRN for constipation, # 1,042 gram, Refills(s) 0, Pharmacy: [facility], 161, cm, 01/02/25 13:57:00 EDT, Height/Length Dosing, 70.4, kg, 01/02/25 13:57:00 EDT, Weight Dosing Start Date: 01/02/25 Status: Ordered Quantity: 1042.0 Unit: g Repeat number: 1 Indications: Full incontinence of feces; Left lower quadrant pain; NuLYTELY Becker oral powder for reconstitution See Instructions, 1 EA, Refill(s) 0, See physician's instruction prior to procedure., [facility], 161, cm, 02/06/25 8:31:00 EDT, Height/Length Dosing, 70.4, kg, 02/06/25 8:31:00 EDT, Weight Dosing Start Date: 02/06/25 Status: Ordered Quantity: 1.0 Unit: EA Repeat number: [address] Tab 40 mg, Oral, Once a day (at bedtime), # 90 tab(s), Refills(s) 1, Pharmacy: [facility], 161, cm, 12/24/24 15:17:00 EDT, Height/Length Dosing, 71.9, kg, 12/24/24 15:17:00 EDT, Weight Dosing Start Date: 12/24/24 Status: Ordered Quantity: 90.0 Unit: tab(s) Repeat number: 2 traZODONE 100 mg Tab 100 mg, Oral, Once a day (at bedtime), # 30 tab(s), Refills(s) 0, Pharmacy: [facility], 161, cm, 01/02/25 13:57:00 EDT, Height/Length Dosing, 70.4, kg, 01/02/25 13:57:00 EDT, Weight Dosing Start Date: 01/23/25 Status: Ordered Quantity: 30.0 Unit: tab(s) Repeat number: 1 Problem List Condition Confirmation Course Effective Dates Status H ealth Status Informant Anxiety Confirmed Active Overweight (BMI 25.0-29.9) Confirmed Active Constipation Confirmed Active Former smoker Confirmed Active Fall Confirmed Active Gastroesophageal reflux disease Confirmed Active HTN (hypertension) Confirmed Active Fecal incontinence Confirmed Active LLQ abdominal pain Confirmed Active Moderate major depression Confirmed Active BMI 27.0-27.9,adult Confirmed Active Procedures Procedure Date Related Diagnosis Body Site Status Colonoscopy 1 02/06/25 Completed Cataracts Completed Colonoscopy Completed Hernia Completed 1poor prep,Ih and sigmoid diverticulosis Social History Social History Type Response Smoking Status Former smoker, quit more than 30 days ago; Tobacco Use: Former smoker 20 years ago;Never; Type: Cigarettes; Concerns about tobacco use in household: No; Smoking Cessation Yes entered on: 01/02/25 Sex Female Sex Representation Female (finding) Hospital Discharge Instructions Patient Education 02/06/2025 09:13:59 Colonoscopy, Care After Surgery Salam (CUSTOM) Colonoscopy Care After Surgery Please read the instructions outlined below and refer to this sheet in the next few weeks. These discharge instructions provide you with general information on caring for [facility] Your doctor may also give you specific instructions. While your treatment has been planned according to the most current medical practices available, unavoidable complications occasionally occur. If you have any problems or questions after discharge, please call your doctor. ACTIVITY You may resume your regular activity, but move at a slower pace for the next 24 hours. Take frequent rest periods for the next 24 hours. Walking will help get rid of the air and reduce the bloated feeling in your abdomen (belly). No driving for 24 hours (because of the anesthesia (medicine) used during the test). You may shower. Do not sign any important legal documents or operate any machinery for 24 hours (because of the anesthesia used during the test). NUTRITION Drink plenty of fluids. You may resume your normal diet as instructed by your doctor. Begin with a light meal and progress to your normal diet. Heavy or fried foods are harder to digestand may make you feel nauseated (sick to your stomach). Avoid alcoholic beverages for 24 hours or as instructed. MEDICATIONS You may resume your normal medications unless your doctor tells you otherwise. WHAT YOU CAN EXPECT TODAY Some feelings of bloating in the abdomen. Passage of more gas than usual. Spotting of blood in your stool or on the toilet paper. FOLLOW-UP Your doctor will discuss the results of your test with you. SEEK IMMEDIATE MEDICAL ATTENTION IF: There is more than a spotting of blood in your stool. There is abdominal distention (your abdomen is swollen). There is vomiting. You have a temperature over 101.5 F. There is abdominal pain or discomfort that is severe or gets worse throughout the day. 02/06/2025 09:13:50 Hemorrhoids Hemorrhoids Hemorrhoids are swollen veins in and around the rectum or the opening of the butt (anus). There aretwo types of hemorrhoids: ??? Internal. These occur in the veins just inside the rectum. They may poke through to the outsideand become irritated and painful. ??? External. These occur in the veins outside the anus. They can be felt as a painful swelling or hard lump near the anus. Most hemorrhoids do not cause severe problems. Often, they can be treated at home with diet and lifestyle changes. If home treatments do not help, you may need a procedure to shrink or remove the hemorrhoids. What are the causes? Hemorrhoids are caused by pressure near the anus. This pressure may be caused by: ??? Constipation or diarrhea. ??? Straining to poop. ??? . ??? Obesity. ??? Sitting or riding a bike for a long time. ??? Heavy lifting or other things that cause you to strain. ??? Anal sex. What are the signs or symptoms? Symptoms of this condition include: ??? Pain. ??? Anal itching or irritation. ??? Bleeding from the rectum. ??? Leakage of poop (stool). ??? Swelling of the anus. ??? One or more lumps around the anus. How is this diagnosed? Hemorrhoids can often be diagnosed through a visual exam. Other exams or tests may also be done, such as: ??? A digital rectal exam. This is when your health care provider feels inside your rectum with a gloved finger. ??? Anoscope. This is an exam of the anus using a small tube. ??? A blood test, if you have lost a lot of blood. ??? A sigmoidoscopy or colonoscopy. These are tests to look inside the colon using a tube with a camera on the end. How is this treated? In most cases, hemorrhoids can be treated at home with diet and lifestyle changes. If these changesdo not help, you may need to have a procedure done. These procedures can make the hemorrhoids smaller or fully remove them. Common procedures include: ??? Rubber band ligation. Rubber bands are placed at the base of the hemorrhoids to cut off their blood supply. ??? Sclerotherapy. Medicine is put into the hemorrhoids to shrink them. ??? Infrared coagulation. A type of light energy is used to get rid of the hemorrhoids. ??? Hemorrhoidectomy surgery. The hemorrhoids are removed during surgery. Then, the veins that supply them are tied off. ??? Stapled hemorrhoidopexy surgery. The base of the hemorrhoid is stapled to the wall of the rectum. Follow these instructions at home: Medicines ??? Take tibu-jll-mmcgiil and prescription medicines only as told by your provider. ??? Use medicated creams or medicines that are put in the rectum (suppositories) as told by your provider. Eating and drinking ??? Eat foods that are high in fiber, such as beans, whole grains, and fresh fruits and vegetables. ??? Ask your provider about taking products that have fiber added to them (fiber supplements). ??? Reduce the amount of fat in your diet. You can do this by eating low-fat dairy products, eatingless red meat, and avoiding processed foods. ??? Drink enough fluid to keep your pee (urine) pale yellow. Managing pain and swelling ??? Take warm sitz baths for 20 minutes, 3???4 times a day. This can help ease pain and discomfort.You may do this in a bathtub or you can use a portable sitz bath that fits over the toilet. ??? If told, put ice on the affected area. It may help to use ice packs between sitz baths. ??? Put ice in a plastic bag. ??? Place a towel between your skin and the bag. ??? Leave the ice on for 20 minutes, 2???3 times a day. ??? If your skin turns bright red, remove the ice right away to prevent skin damage. The risk of damage is higher if you cannot feel pain, heat, or cold. General instructions ??? Exercise. Ask your provider how much and what kind of exercise is best for you. In general, youshould do moderate exercise for at least 30 minutes on most days of the week (150 minutes each week). You may want to try walking, biking, or yoga. ??? Go to the bathroom when you have the urge to poop. Do not wait. ??? Avoid straining to poop. ??? Keep the anus dry and clean. Use wet toilet paper or moist towelettes after you poop. ??? Do not sit on the toilet for a long time. This can increase blood pooling and pain. Where to find more information ??? National [place] of Diabetes and Digestive and Kidney Diseases: niddk.nih.gov Contact a health care provider if: ??? You have more pain and swelling that do not get better with treatment. ??? You have trouble pooping or you are not able to poop. ??? You have pain or inflammation outside the area of the hemorrhoids. Get help right away if: ??? You are bleeding from your rectum and you cannot get it to stop. This information is not intended to replace advice given to you by your health care provider. Make sure you discuss any questions you have with your health care provider. Document Revised: 02/15/2023 Document Reviewed: 02/15/2023 [employer] Patient Education ?? 2023 [employer] 02/06/2025 09:13:29 Diverticulosis MAGR (CUSTOM) Diverticulosis Many people have small pouches in their colon called diverticulum. The diverticulum bulge outward through weak spots in the colon. You could have one or more of these pouches in the colon. The condition of having these pouches in the colon is called diverticulosis or diverticular disease. Diverticulosis is usually diagnosed by tests to evaluate something else. For example, you may have had a colonoscopy to screen for colon cancer when the diverticulosis was found. Most people with diverticulosis do not have any discomfort or problems. If symptoms develop, they may include mild cramps, bloating, and constipation. A complication of this condition is called diverticulitis. This is when the diverticulum become inflamed and infected. How to treat diverticulosis: Increasing the amount of fiber in the diet may reduce symptoms of diverticulosis and prevent complications such as diverticulitis (infected diverticuli). Fiber keeps stool soft and lowers pressure inside the colon so that bowel contents can move througheasily. You should eat 20 to 35 grams of fiber each day. The table below shows the amount of fiber in some foods that you can easily add to your diet. Adding fiber slowly may decrease the bloating and fullness sometimes felt with an immediate high fiber diet. The doctor may also recommend taking a fiber product such as Citrucel or Metamucil once a day. In the past people with diverticulosis were to avoid nuts, corn, and seeds. This has not been foundto be true. If you find that certain foods create cramping or bloating, avoid that food. Foods high in fiber include: Fresh fruits, fresh vegetables, legumes (beans), whole wheat bread, bran muffins or cereal, and nuts. See the table below for examples of high fiber foods. Remember, your goal is 20- 35 grams per day. Amount of fiber in different foods Food Serving Grams of fiber Fruits Apple (with skin) 1 medium apple 4.4 Banana 1 medium banana 3.1 Oranges 1 orange 3.1 Prunes 1 cup, pitted 12.4 Juices Apple, unsweetened, w/added ascorbic acid 1 cup 0.5 Grapefruit, white, canned, sweetened 1 cup 0.2 Grape, unsweetened, w/added ascorbic acid 1 cup 0.5 Becker 1 cup 0.7 Vegetables Cooked Green beans 1 cup 4.0 Carrots 1/2 cup sliced 2.3 Peas 1 cup 8.8 Potato (baked, with skin) 1 medium potato 3.8 Raw [place] (with peel) 1 cucumber 1.5 Lettuce 1 cup shredded 0.5 Tomato 1 medium tomato 1.5 Spinach 1 cup 0.7 Legumes Baked beans, canned, no salt added 1 cup 13.9 Kidney beans, canned 1 cup 13.6 Esparza beans, canned 1 cup 11.6 Lentils, boiled 1 cup 15.6 Breads, pastas, flours Bran muffins 1 medium muffin 5.2 Oatmeal, cooked 1 cup 4.0 White bread 1 slice 0.6 Whole-wheat bread 1 slice 1.9 Pasta and rice, cooked Macaroni 1 cup 2.5 Rice, brown 1 cup 3.5 Rice, white 1 cup 0.6 Spaghetti (regular) 1 cup 2.5 Nuts Almonds 1/2 cup 8.7 Peanuts 1/2 cup 7.9 Chart from [facility] 2013. SEEK IMMEDIATE MEDICAL CARE IF: You develop abdominal (belly) pain. An oral temperature above _ 101?? F__develops. Repeated vomiting occurs. Blood is being passed in stools (bright red or black tarry stools). You develop any bowel problems or changes which you have not had before. Extra Information: To learn how much fiber and other nutrients are in different foods, visit the [place] Department of Agriculture (USDA) National Nutrient Database at: http://www.nal.usda.gov/fnic/foodcomp/search/ Created using data from the USDA National Nutrient Database for Standard Reference. Available at http://www.nal.usda.gov/fnic/foodcomp/search/. Information adapted from: [facility]?? Patient Information ??2009 [employer], [facility]. [facility] 2012 [email or web address].Sunshine/contents/hqafaunlgrdl-mhtjpih-iebbcp-the-basics Follow Up Care 01/02/2025 16:20:16 With:Wendy HUIZAR, VERONICA Zaragoza, [facility] Address: [address] [place] [address] [address] [phone] When: Unknown Comments:repeat colonoscopy tomorrow, be here at noon procedure is at 1. History and physical note * Wendy HUIZAR, Russ Lopez: PERFORM, SIGN, VERIFY Event Display: History and Physical Authored Date: [id number] Patient: MARY CARMEN ALCARAZ Age: 80 years Sex: Female : 1945 Associated Diagnoses: None Author: Russ Nguyen MD Preoperative Information Indication for procedure and diagnosis: Stool incontinence Chief Complaint as above Review of Systems All systems reviewed, negative except as mentioned above Health Status Current medications: (Selected) Inpatient Medications Ordered Lactated Ringers IV Claritza 1000 mL 1,000 mL: 1,000 mL, IV, 100 mL/hr, Routine, Start date 02/06/25 7:08:00 EDT, 10 hour(s), Total volume (mL): 1,000 Sodium Chloride 0.9% IV Claritza 1000 mL 1,000 mL: 1,000 mL, IV, 20 mL/hr, Routine, Start date 02/06/25 6:38:00 EDT, 50 hour(s), Total volume (mL): 1,000 Prescriptions Prescribed FLUoxetine 20 mg Cap: 60 mg, Oral, Daily, # 90 cap(s), Refills(s) 0, Pharmacy: [facility], 161, cm, 01/02/25 13:57:00 EDT, Height/Length Dosing, 70.4, kg, 01/02/25 13:57:00 EDT, Weight Dosing Metamucil 3.4 g/5.2 g oral powder: 3.4 gram, Oral, TID, PRN for constipation, # 1,042 gram, Refills(s) 0, Pharmacy: [facility], 161, cm, 01/02/25 13:57:00 EDT, Height/Length Dosing, 70.4, kg, 01/02/25 13:57:00 EDT, Weight Dosing Pantoprazole [address] Tab: 40 mg, Oral, Once a day (at bedtime), # 90 tab(s), Refills(s) 1, Pharmacy: [facility], 161, cm, 12/24/24 15:17:00 EDT, Height/Length Dosing, 71.9, kg, 12/24/24 15:17:00 EDT, Weight Dosing alprazolam 1 mg Tab: 1 mg = 1 tab(s), Oral, TID, PRN for anxiety, # 30 tab(s), Refills(s) 0, Pharmacy: [facility], 161, cm, 12/18/24 9:23:00 EDT, Height/Length Dosing, 70.5, kg, 12/18/24 9:23:00 EDT, Weight Dosing alprazolam 1 mg Tab: 1 mg = 1 tab(s), Oral, TID, PRN for anxiety, # 30 tab(s), Refills(s) 0, Pharmacy: [facility], 161, cm, 01/02/25 13:57:00 EDT, Height/Length Dosing, 70.4, kg, 01/02/25 13:57:00 EDT, Weight Dosing atorvastatin 20 mg Tab: 20 mg, Oral, Daily, # 90 tab(s), Refills(s) 1, Pharmacy: [facility], 161, cm, 12/24/24 15:17:00 EDT, Height/Length Dosing, 71.9, kg, 12/24/24 15:17:00 EDT, Weight Dosing losartan 50 mg Tab: 50 mg = 1 tab(s), Oral, Daily, # 90 tab(s), Refills(s) 1, Pharmacy: [facility], 161, cm, 12/18/24 9:23:00 EDT, Height/Length Dosing, 70.5, kg, 12/18/24 9:23:00 EDT, Weight Dosing traZODONE 100 mg Tab: 100 mg, Oral, Once a day (at bedtime), # 30 tab(s), Refills(s) 0, Pharmacy: [facility], 161, cm, 01/02/25 13:57:00 EDT, Height/Length Dosing, 70.4, kg, 01/02/25 13:57:00 EDT, Weight Dosing Documented Medications Documented Linzess 145 mcg oral capsule: 1 mcg, Oral, Once a day (at bedtime), Refills(s) 0, Constipation buPROPion 300 mg/24 hours ER Tab: 300 mg, Oral, Daily, Refills(s) 0, Depression, Home Medications (10) Active alprazolam 1 mg Tab 1 mg = 1 tab(s), PRN, Oral, TID alprazolam 1 mg Tab 1 mg = 1 tab(s), PRN, Oral, TID atorvastatin 20 mg Tab 20 mg, Oral, Daily buPROPion 300 mg/24 hours ER Tab 300 mg, Oral, Daily FLUoxetine 20 mg Cap 60 mg, Oral, Daily Linzess 145 mcg oral capsule 1 mcg, Oral, Once a day (at bedtime) losartan 50 mg Tab 50 mg = 1 tab(s), Oral, Daily Metamucil 3.4 g/5.2 g oral powder 3.4 gram, PRN, Oral, TID Pantoprazole [address] Tab 40 mg, Oral, Once a day (at bedtime) traZODONE 100 mg Tab 100 mg, Oral, Once a day (at bedtime) Problem list: All Problems Moderate major depression / SNOMED CT 8982070 / Confirmed Gastroesophageal reflux disease / SNOMED CT 073818081 / Confirmed Constipation / SNOMED CT 11934676 / Confirmed HTN (hypertension) / SNOMED CT 3693416382 / Confirmed Anxiety / SNOMED CT 97517402 / Confirmed Fall / SNOMED CT 0036873 / Confirmed Overweight (BMI 25.0-29.9) / SNOMED CT 4720146586 / Confirmed Former smoker / SNOMED CT 71980960 / Confirmed BMI 27.0-27.9,adult / SNOMED CT 6640685228 / Confirmed Fecal incontinence / SNOMED CT 390335560 / Confirmed LLQ abdominal pain / SNOMED CT 267304851 / Confirmed Histories Past Medical History: No active or resolved past medical history items have been selected or recorded. Family History: No family history items have been selected or recorded. Procedure history: Hernia (0231160738). Cataracts ([id number]). Colonoscopy (197839336). Social History Social & Psychosocial Habits Tobacco 01/02/2025 Tobacco Use: Former smoker 20 years ago, Former smoker, quit more Smokeless tobacco use: Never Type: Cigarettes Concerns about tobacco use in household: No Smoking Cessation Yes . Physical Examination Vital Signs (last 24 hrs) Last Charted Temp Temporal 36.8 DegC (FEB 06:) Heart Rate Monitored 62 bpm (FEB 06:) Resp Rate 17 br/min (FEB 06) SBP 123 mmHg (FEB 06:) DBP H 92 mmHg (FEB 06) Weight 70.4 kg (AUG 21 08:29) BMI 27.16 (FEB 06 08:29) General:??in Nad Abdomen: Soft, NTND Impression and Plan Impression: Stool incontinence Plan: Colonoscopy Electronically Signed By: Russ Nguyen MD Date and Time Signed: 02/06/25 08:42 EDT Note * Brett Rutherford MD: PERFORM, MODIFY, SIGN, VERIFY Event Display: Progress Note-Physician Authored Date: [id number] Patient: MARY CARMEN ALCARAZ Age: 80 years Sex: Female : 1945 Associated Diagnoses: None Author: Brett Rutherford MD Preoperative Information Anesthesia Preop Info: Time patient last ate or drank 02/06/2025 00:00:00. Anesthesia history: Patient history: None. Family history+: None. Informed consent: Signed by patient. Including risks, benefits, and alternatives related to the: Anesthetic plan. Re-evaluation prior to induction: Brett Rutherford MD. Review of Systems Eye Ear/Nose/Mouth/Throat Respiratory: No shortness of breath, No cough. Cardiovascular: Negative, No chest pain. Gastrointestinal: No heartburn. Musculoskeletal Neurologic Health Status Allergies: Allergic Reactions (Selected) Severity Not Documented Penicillin G benzathine- Syncope., Allergies (1) Active Severity Reaction penicillin G benzathine Syncope Current medications: (Selected) Inpatient Medications Ordered Sodium Chloride 0.9% IV Claritza 1000 mL 1,000 mL: 1,000 mL, IV, 20 mL/hr, Routine, Start date 02/06/25 6:38:00 EDT, 50 hour(s), Total volume (mL): 1,000 Prescriptions Prescribed FLUoxetine 20 mg Cap: 60 mg, Oral, Daily, # 90 cap(s), Refills(s) 0, Pharmacy: [facility], 161, cm, 01/02/25 13:57:00 EDT, Height/Length Dosing, 70.4, kg, 01/02/25 13:57:00 EDT, Weight Dosing Metamucil 3.4 g/5.2 g oral powder: 3.4 gram, Oral, TID, PRN for constipation, # 1,042 gram, Refills(s) 0, Pharmacy: [facility], 161, cm, 01/02/25 13:57:00 EDT, Height/Length Dosing, 70.4, kg, 01/02/25 13:57:00 EDT, Weight Dosing NuLYTELY Becker oral powder for reconstitution: See Instructions, 1 EA, Refill(s) 0, follow up physicians insctructions, [facility], 161, cm, 01/02/25 13:57:00 EDT, Height/Length Dosing, 70.4, kg, 01/02/25 13:57:00 EDT, Weight Dosing Pantoprazole [address] Tab: 40 mg, Oral, Once a day (at bedtime), # 90 tab(s), Refills(s) 1, Pharmacy: [facility], 161, cm, 12/24/24 15:17:00 EDT, Height/Length Dosing, 71.9, kg, 12/24/24 15:17:00 EDT, Weight Dosing alprazolam 1 mg Tab: 1 mg = 1 tab(s), Oral, TID, PRN for anxiety, # 30 tab(s), Refills(s) 0, [facility] [facility], [facility], cm, 12/18/24 9:23:00 EDT, Height/Length Dosing, 70.5, kg, 12/18/24 9:23:00 EDT, Weight Dosing alprazolam 1 mg Tab: 1 mg = 1 tab(s), Oral, TID, PRN for anxiety, # 30 tab(s), Refills(s) 0, Pharmacy: [facility], 161, cm, 01/02/25 13:57:00 EDT, Height/Length Dosing, 70.4, kg, 01/02/25 13:57:00 EDT, Weight Dosing atorvastatin 20 mg Tab: 20 mg, Oral, Daily, # 90 tab(s), Refills(s) 1, Pharmacy: [facility], 161, cm, 12/24/24 15:17:00 EDT, Height/Length Dosing, 71.9, kg, 12/24/24 15:17:00 EDT, Weight Dosing losartan 50 mg Tab: 50 mg = 1 tab(s), Oral, Daily, # 90 tab(s), Refills(s) 1, Pharmacy: [facility], 161, cm, 12/18/24 9:23:00 EDT, Height/Length Dosing, 70.5, kg, 12/18/24 9:23:00 EDT, Weight Dosing traZODONE 100 mg Tab: 100 mg, Oral, Once a day (at bedtime), # 30 tab(s), Refills(s) 0, Pharmacy: [facility], 161, cm, 01/02/25 13:57:00 EDT, Height/Length Dosing, 70.4, kg, 01/02/25 13:57:00 EDT, Weight Dosing Documented Medications Documented Linzess 145 mcg oral capsule: 1 mcg, Oral, Once a day (at bedtime), Refills(s) 0, Constipation buPROPion 300 mg/24 hours ER Tab: 300 mg, Oral, Daily, Refills(s) 0, Depression, Home Medications (11) Active alprazolam 1 mg Tab 1 mg = 1 tab(s), PRN, Oral, TID alprazolam 1 mg Tab 1 mg = 1 tab(s), PRN, Oral, TID atorvastatin 20 mg Tab 20 mg, Oral, Daily buPROPion 300 mg/24 hours ER Tab 300 mg, Oral, Daily FLUoxetine 20 mg Cap 60 mg, Oral, Daily Linzess 145 mcg oral capsule 1 mcg, Oral, Once a day (at bedtime) losartan 50 mg Tab 50 mg = 1 tab(s), Oral, Daily Metamucil 3.4 g/5.2 g oral powder 3.4 gram, PRN, Oral, TID NuLYTELY Becker oral powder for reconstitution See Instructions Pantoprazole [address] Tab 40 mg, Oral, Once a day (at bedtime) traZODONE 100 mg Tab 100 mg, Oral, Once a day (at bedtime) , Medications (1) Active Scheduled: (0) Continuous: (1) Sodium Chloride 0.9% 1,000 mL 1,000 mL, IV, 20 mL/hr PRN: (0) Problem list: All Problems Anxiety / SNOMED CT 74155336 / Confirmed BMI 27.0-27.9,adult / SNOMED CT 9849023554 / Confirmed Constipation / SNOMED CT 92047956 / Confirmed Fall / SNOMED CT 9129652 / Confirmed Fecal incontinence / SNOMED CT 433092289 / Confirmed Former smoker / SNOMED CT 08305990 / Confirmed Gastroesophageal reflux disease / SNOMED CT 833477577 / Confirmed HTN (hypertension) / SNOMED CT 0272510794 / Confirmed LLQ abdominal pain / SNOMED CT 125310056 / Confirmed Moderate major depression / SNOMED CT 7405546 / Confirmed Overweight (BMI 25.0-29.9) / SNOMED CT 8011629086 / Confirmed Canceled: BMI 28.0-28.9,adult / SNOMED CT 6307699435 Canceled: Transportation insecurity / SNOMED CT 4007539202967285 Problem added automatically by Discern Expert based on clinical documentation, Active Problems (11) Anxiety BMI 27.0-27.9,adult Constipation Fall Fecal incontinence Former smoker Gastroesophageal reflux disease HTN (hypertension) LLQ abdominal pain Moderate major depression Overweight (BMI 25.0-29.9) Histories Past Medical History: No active or resolved past medical history items have been selected or recorded. Family History: No family history items have been selected or recorded. Procedure history: Hernia (8036745648). Cataracts (0174793656). Colonoscopy (256275652). Social History Social & Psychosocial Habits Tobacco 01/02/2025 Tobacco Use: Former smoker 20 years ago, Former smoker, quit more Smokeless tobacco use: Never Type: Cigarettes Concerns about tobacco use in household: No Smoking Cessation Yes . Physical Examination No qualifying data available Airway: Mallampati classification: II (soft palate, fauces, uvula visible). Respiratory: Lungs are clear to auscultation, Respirations are non-labored, adequate air exchange. Cardiovascular: Regular rhythm, No murmur, 2+ bilateral radial pulses, no peripheral edema, no JVD. Review / Management Results review: No qualifying data available . Plan [place] [employer]hesi[employer] (ASA) physical status classification: Class II. Anesthetic Preoperative Plan: Anesthesia General. Electronically Signed By: Brett Rutherford MD Date and Time Signed: 02/06/25 12:46 EDT Patient Care team information Care Team Personnel Name: PETE TORRES CNP Position: [facility] - Primary Care - [facility] Member Role: Primary Care Physician Address: [address] [place] [id number] Telecom: Care Team Related Persons Name: GRADY ANDERSEN Name: Evette Andersenh Name: GRADY ANDERSEN Insurance Providers Guarantor name: Health Plan Information #: 1 Payer: [employer] Payer Identifier: [id number] Member Number: [id number] Group Number: [id number] Subscriber Identifier: [id number] Relationship to Subscriber: Self Coverage Type: MEDICARE Coverage Verification Date: 25 Telecom: [phone] Address: [facility] [id number] [place] [address]
--- OUTSIDE RECORDS SUMMARY | 2025-02-07 23:59 | XMS_ITS | Continuity of Care Document ---
Author Organization [facility] Address Unknown Care Team Providers Care National Accounts Recruiter Name Role Phone PETE TORRES Primary Care Physician [phone] Encounter [facility] [id number] Date(s): 02/07/25 - 02/07/25 [facility] [address] [place], [place] [address] Discharge Disposition: Home (Routine DC) Attending Physician: Russ Nguyen MD Admitting Physician: Russ Nguyen MD Referring Physician: Russ Nguyen MD Encounter Type: Outpatient Allergies, Adverse Reactions, Alerts Substance Criticality Severity Reaction Reaction Severity Status penicillin G benzathine Syncope Active Assessment and Plan Extracted from: Title:ANES Post-operative Note - General Author: Mango Dodson Jr., DO Date:02/07/25 Plan Transfer/Discharge: Transfer/Discharge Discharge when meets criteria ( From PACU to Ambulatory Surgery Unit, and To home ). Extracted from: Title:ANES Pre-operative Note - Endo Author:Mango Junior Jr., DO Date:02/07/25 Plan [place] [employer] Anesthesiologists (ASA) physical status classification: Class III. Anesthetic Preoperative Plan: Anesthesia General, and -TIVA. Extracted from: Title:1Preop H&P Author:Russ Nguyen MD Date:02/07/25 Impression and Plan Impression: Stool incontinence Plan: -Colonoscopy Medications alprazolam 1 mg Tab 1 mg = 1 tab(s), Oral, TID, PRN for anxiety, # 30 tab(s), Refills(s) 0, Pharmacy: [facility], 161, cm, 12/18/24 9:23:00 EDT, Height/Length Dosing, 70.5, kg, 12/18/24 9:23:00 EDT, Weight Dosing Start Date: 12/18/24 Status: Ordered Quantity: 30.0 Unit: tab(s) Repeat number: 1 alprazolam 1 mg Tab 1 mg = 1 tab(s), Oral, TID, PRN for anxiety, # 30 tab(s), Refills(s) 0, Pharmacy: [facility], 161, cm, 01/02/25 13:57:00 EDT, Height/Length Dosing, 70.4, kg, 01/02/25 13:57:00 EDT, Weight Dosing Start Date: 01/15/25 Status: Ordered Quantity: 30.0 Unit: tab(s) Repeat number: 1 atorvastatin 20 mg Tab 20 mg, Oral, Daily, # 90 tab(s), Refills(s) 1, Pharmacy: [facility], 161, cm, 12/24/24 15:17:00 EDT, Height/Length Dosing, 71.9, kg, 12/24/24 15:17:00 EDT, Weight Dosing Start Date: 12/24/24 Status: Ordered Quantity: 90.0 Unit: tab(s) Repeat number: 2 buPROPion 300 mg/24 hours ER Tab 300 mg, Oral, Daily, Refills(s) 0, Depression Start Date: 09/02/24 Status: Ordered Repeat number: 1 FLUoxetine 20 mg Cap 60 mg, Oral, Daily, # 90 cap(s), Refills(s) 0, Pharmacy: [facility], 161, cm, 01/02/25 13:57:00 EDT, Height/Length Dosing, [...] Daily, # 90 tab(s), Refills(s) 1, Pharmacy: [facility], 161, cm, 12/18/24 9:23:00 EDT, Height/Length [...] constipation, # 1,042 gram, Refills(s) 0, Pharmacy: [facility], 161, cm, 01/02/25 13:57:00 EDT, Height/Length Dosing, 70.4, kg, 01/02/25 13:57:00 EDT, Weight Dosing Start Date: 01/02/25 Status: Ordered Quantity: 1042.0 Unit: g Repeat number: 1 Indications: Full incontinence of feces; Left lower quadrant pain; Pantoprazole [address] Tab 40 mg, Oral, Once a day (at bedtime), # 90 tab(s), Refills(s) 1, Pharmacy: [facility], 161, cm, 12/24/24 15:17:00 EDT, Height/Length Dosing, 71.9, kg, 12/24/24 15:17:00 EDT, Weight Dosing Start Date: 12/24/24 Status: Ordered Quantity: 90.0 Unit: tab(s) Repeat number: 2 traZODONE 100 mg Tab 100 mg, Oral, Once a day (at bedtime), # 30 tab(s), Refills(s) 0, Pharmacy: [facility], 161, cm, 01/02/25 13:57:00 EDT, Height/Length Dosing, [...] Date Related Diagnosis Body Site Status Colonoscopy 02/07/25 Completed Colonoscopy 1 02/06/25 Completed Cataracts Completed Colonoscopy [...] Female (finding) Hospital Discharge Instructions Patient Education 02/07/2025 13:25:02 Diverticulosis MAGR (CUSTOM) Diverticulosis Many people have [...] unsweetened, w/added ascorbic acid 1 cup 0.5 [place] 1 cup 0.7 Vegetables Cooked Green beans 1 cup 4.0 Carrots 1/2 cup sliced 2.3 Peas 1 cup 8.8 Potato (baked, with skin) 1 medium potato 3.8 Raw [place] (with peel) 1 cucumber 1.5 Lettuce 1 [...] 8.7 Peanuts 1/2 cup 7.9 Chart from [facility] 2013. SEEK IMMEDIATE MEDICAL CARE IF: You [...] of Agriculture (USDA) National Nutrient Database at: http://www.PeerApp.usda.gov/fnic/foodcomp/search/ Created using data from the USDA National Nutrient Database for Standard Reference. Available at http://www.PeerApp.usda.gov/fnic/foodcomp/search/. Information adapted from: [facility]?? Patient Information ??2009 [employer]. [employer] 2012 http://www.ShareWithU/contents/lxmidxlvtvte-slgzhjw-lngeus-the-basics 02/07/2025 13:25:00 Colonoscopy, Care After Surgery Salam (CUSTOM) Colonoscopy Care After Surgery Please read the instructions outlined below and refer to this sheet in the next few weeks. These discharge instructions provide you with general information on [facility] Your doctor may also give you specific [...] severe or gets worse throughout the day. Follow Up Care 02/06/2025 09:19:47 With:Wendy HUIZAR, Russ Lopez, VERONICA, [facility] Address: [facility] [address] [phone] Business (1) When: Unknown Comments:Call for any problems. If you do not have a follow-up appointment already scheduled, please call the office. History and physical note * Wendy HUIZAR, Russ Lopez: PERFORM, SIGN, VERIFY Event Display: History and Physical Authored Date: [id number] Patient: MARY CARMEN ALCARAZ Age: 80 years [...] mL, IV, 100 mL/hr, Routine, Start date 02/07/25 12:35:00 EDT, 10 hour(s), Total volume (mL): 1,000, 70.4 kg, 1.77, m2 Sodium Chloride 0.9% IV Claritza 1000 mL 1,000 mL: 1,000 mL, IV, 20 mL/hr, Routine, Start date 02/07/25 12:14:00 EDT, 50 hour(s), Total volume (mL): 1,000, 70.4 kg, 1.77, m2 Prescriptions Prescribed FLUoxetine 20 mg Cap: 60 mg, Oral, Daily, # 90 cap(s), Refills(s) 0, Pharmacy: [facility], 161, cm, 01/02/25 13:57:00 EDT, Height/Length Dosing, 70.4, kg, 01/02/25 13:57:00 EDT, Weight Dosing Metamucil 3.4 g/5.2 g oral powder: 3.4 gram, Oral, TID, PRN for constipation, # 1,042 gram, Refills(s) 0, Pharmacy: [facility], 161, cm, 01/02/25 13:57:00 EDT, Height/Length Dosing, 70.4, kg, 01/02/25 13:57:00 EDT, Weight Dosing Pantoprazole [address] Tab: 40 mg, Oral, Once a day (at bedtime), # 90 tab(s), Refills(s) 1, Pharmacy: [facility], 161, cm, 12/24/24 15:17:00 EDT, Height/Length Dosing, 71.9, kg, 12/24/24 15:17:00 EDT, Weight Dosing alprazolam 1 mg Tab: 1 mg = 1 tab(s), Oral, TID, PRN for anxiety, # 30 tab(s), Refills(s) 0, Pharmacy: [facility], 161, cm, 12/18/24 9:23:00 EDT, Height/Length Dosing, 70.5, kg, 12/18/24 9:23:00 EDT, Weight Dosing alprazolam 1 mg Tab: 1 mg = 1 tab(s), Oral, TID, PRN for anxiety, # 30 tab(s), Refills(s) 0, Pharmacy: [facility], 161, cm, 01/02/25 13:57:00 EDT, Height/Length Dosing, 70.4, kg, 01/02/25 13:57:00 EDT, Weight Dosing atorvastatin 20 mg Tab: 20 mg, Oral, Daily, # 90 tab(s), Refills(s) 1, Pharmacy: [facility], 161, cm, 12/24/24 15:17:00 EDT, Height/Length Dosing, 71.9, kg, 12/24/24 15:17:00 EDT, Weight Dosing losartan 50 mg Tab: 50 mg = 1 tab(s), Oral, Daily, # 90 tab(s), Refills(s) 1, Pharmacy: [facility], 161, cm, 12/18/24 9:23:00 EDT, Height/Length Dosing, 70.5, kg, 12/18/24 9:23:00 EDT, Weight Dosing traZODONE 100 mg Tab: 100 mg, Oral, Once a day (at bedtime), # 30 tab(s), Refills(s) 0, Pharmacy: [facility], 161, cm, 01/02/25 13:57:00 EDT, Height/Length Dosing, [...] Problems Moderate major depression / SNOMED CT 0709818 / Confirmed Gastroesophageal reflux disease / SNOMED CT 646046123 / Confirmed Constipation / SNOMED CT 50036400 / Confirmed HTN (hypertension) / SNOMED CT 1512367617 / Confirmed Anxiety / SNOMED CT 86561237 / Confirmed Fall / SNOMED CT 2632423 / Confirmed Overweight (BMI 25.0-29.9) / SNOMED CT 4601002055 / Confirmed Former smoker / SNOMED CT 77165084 / Confirmed BMI 27.0-27.9,adult / SNOMED CT 2080037063 / Confirmed Fecal incontinence / SNOMED CT 432604600 / Confirmed LLQ abdominal pain / SNOMED CT 242537630 / Confirmed Histories Past Medical History: No active or resolved past medical history items have been selected or recorded. Family History: No family history items have been selected or recorded. Procedure history: Colonoscopy ([id number]) on 02/06/2025 at 80 Years. Comments: 02/06/2025 9:50 EDT - Samia PUTNAM, Lyndsey andre prep,Ih and sigmoid diverticulosis Hernia ([id number]). Cataracts ([id number]). Colonoscopy ([id number]). Social History Social & Psychosocial Habits Tobacco 01/02/2025 Tobacco Use: Former smoker 20 years ago, Former smoker, quit more Smokeless tobacco use: Never Type: Cigarettes Concerns about tobacco use in household: No Smoking Cessation Yes . Physical Examination Vital Signs (last 24 hrs) Last Charted Temp Temporal 36.9 DegC (FEB 07 12:06) Heart Rate Monitored 70 bpm (FEB 07 13:05) Resp Rate 16 br/min (FEB 07 12:06) SBP 100 mmHg (FEB 07 13:06) DBP 59 mmHg (FEB 07 13:06) Weight 70.4 kg (FEB 07 12:16) BMI 27.16 (FEB 07 12:16) General:??in Nad Abdomen: Soft, NTND Impression and Plan Impression: Stool incontinence Plan: -Colonoscopy Electronically Signed By: Russ Nguyen MD Date and Time Signed: 02/07/25 13:16 EDT Note * Mango Dodson Jr., DO: PERFORM, SIGN, VERIFY Event Display: Progress Note-Physician Authored Date: [id number] Patient: MARY CARMEN ALCARAZ Age: 80 years Sex: Female : 1945 Associated Diagnoses: None Author: Mango Dodson Jr., DO Postoperative Information Postoperative disposition: Postoperative disposition: Home. Optimetrix number: Optimetrix number [id number]. Anesthetic utilized: General. Physical Examination Vital Signs 02/07/2025 13:36 EDT Respiratory Rate Monitored 17 br/min 02/07/2025 13:36 EDT SpO2 95 % 02/07/2025 13:36 EDT Heart Rate Monitored 78 bpm 02/07/2025 13:36 EDT Systolic Blood Pressure 149 mmHg HI Diastolic Blood Pressure 96 mmHg HI 02/07/2025 13:36 EDT Blood Pressure Location Left arm Mean Arterial Pressure, Cuff 114 mmHg 02/07/2025 13:30 EDT Heart Rate Monitored 74 bpm 02/07/2025 13:30 EDT Respiratory Rate Monitored 25 br/min 02/07/2025 13:30 EDT Systolic Blood Pressure 123 mmHg Diastolic Blood Pressure 87 mmHg Blood Pressure Location Left arm Mean Arterial Pressure, Cuff 99 mmHg SpO2 97 % 02/07/2025 13:25 EDT Respiratory Rate Monitored 15 br/min 02/07/2025 13:25 EDT Heart Rate Monitored 72 bpm SpO2 96 % 02/07/2025 13:25 EDT Systolic Blood Pressure 129 mmHg Diastolic Blood Pressure 76 mmHg Blood Pressure Location Left arm Mean Arterial Pressure, Cuff 94 mmHg 02/07/2025 13:20 EDT SpO2 95 % 02/07/2025 13:20 EDT Heart Rate Monitored 73 bpm Respiratory Rate Monitored 17 br/min 02/07/2025 13:20 EDT Systolic Blood Pressure 111 mmHg Diastolic Blood Pressure 69 mmHg Blood Pressure Location Left arm Mean Arterial Pressure, Cuff 83 mmHg 02/07/2025 13:18 EDT Respiratory Rate Monitored 18 br/min 02/07/2025 13:18 EDT SpO2 96 % 02/07/2025 13:18 EDT Heart Rate Monitored 70 bpm 02/07/2025 13:18 EDT Systolic Blood Pressure 108 mmHg Diastolic Blood Pressure 65 mmHg 02/07/2025 13:18 EDT Temperature Temporal Artery 36.2 DegC LOW Blood Pressure Location Left arm Mean Arterial Pressure, Cuff 79 mmHg Pain Assessment: Pain Assessment 02/07/2025 13:42 EDT Pain Symptoms Self Report Yes, able to self report Primary Pain Location Abdomen lower Numeric Pain Scale 2 02/07/2025 13:30 EDT Numeric Pain Scale 0 = No pain . General: Awake, Alert, Appropriate. Respiratory: Adequate air exchange, Non-labored. Cardiovascular: Stable, Normal peripheral perfusion. Neurological: Neurologic exam at baseline. No changes.. Assessment Anesthetic outcome No anesthetic complications noted. No nausea/vomiting. Review / Management Condition: Stable. Plan Transfer/Discharge: Transfer/Discharge Discharge when meets criteria ( From PACU to Ambulatory Surgery Unit, and To home ). Electronically Signed By: Mango Dodson Jr., DO Date and Time Signed: 02/07/25 14:15 EDT * Mango Dodson Jr., DO: PERFORM, SIGN, VERIFY Event Display: Progress Note-Physician Authored Date: [id number] Patient: MARY CARMEN ALCARAZ Age: 80 years Sex: Female : 1945 Associated Diagnoses: None Author: Mango Dodson Jr., DO Preoperative Information Anesthesia history: Patient history: No prior anesthetic problems. Informed consent: Signed by patient. Re-evaluation prior to induction: Initial evaluation reviewed: No significant change. Review of Systems Respiratory: Negative except as documented in history of present illness. Cardiovascular: Negative except as documented in history of present illness. Health Status Allergies: Allergic Reactions (Selected) Severity Not Documented Penicillin G benzathine- Syncope., Allergies (1) Active Severity Reaction penicillin G benzathine Syncope Current medications: (Selected) Inpatient Medications Ordered Lactated Ringers IV Claritza 1000 mL 1,000 mL: 1,000 mL, IV, 100 mL/hr, Routine, Start date 02/07/25 12:35:00 EDT, 10 hour(s), Total volume (mL): 1,000, 70.4 kg, 1.77, m2 Sodium Chloride 0.9% IV Claritza 1000 mL 1,000 mL: 1,000 mL, IV, 20 mL/hr, Routine, Start date 02/07/25 12:14:00 EDT, 50 hour(s), Total volume (mL): 1,000, 70.4 kg, 1.77, m2 Prescriptions Prescribed FLUoxetine 20 mg Cap: 60 mg, Oral, Daily, # 90 cap(s), Refills(s) 0, Pharmacy: [facility], 161, cm, 01/02/25 13:57:00 EDT, Height/Length Dosing, 70.4, kg, 01/02/25 13:57:00 EDT, Weight Dosing Metamucil 3.4 g/5.2 g oral powder: 3.4 gram, Oral, TID, PRN for constipation, # 1,042 gram, Refills(s) 0, Pharmacy: [facility], 161, cm, 01/02/25 13:57:00 EDT, Height/Length Dosing, 70.4, kg, 01/02/25 13:57:00 EDT, Weight Dosing Pantoprazole [address] Tab: 40 mg, Oral, Once a day (at bedtime), # 90 tab(s), Refills(s) 1, Pharmacy: [facility], 161, cm, 12/24/24 15:17:00 EDT, Height/Length Dosing, 71.9, kg, 12/24/24 15:17:00 EDT, Weight Dosing alprazolam 1 mg Tab: 1 mg = 1 tab(s), Oral, TID, PRN for anxiety, # 30 tab(s), Refills(s) 0, Pharmacy: [facility], 161, cm, 12/18/24 9:23:00 EDT, Height/Length Dosing, 70.5, kg, 12/18/24 9:23:00 EDT, Weight Dosing alprazolam 1 mg Tab: 1 mg = 1 tab(s), Oral, TID, PRN for anxiety, # 30 tab(s), Refills(s) 0, Pharmacy: [facility], 161, cm, 01/02/25 13:57:00 EDT, Height/Length Dosing, 70.4, kg, 01/02/25 13:57:00 EDT, Weight Dosing atorvastatin 20 mg Tab: 20 mg, Oral, Daily, # 90 tab(s), Refills(s) 1, Pharmacy: [facility], 161, cm, 12/24/24 15:17:00 EDT, Height/Length Dosing, 71.9, kg, 12/24/24 15:17:00 EDT, Weight Dosing losartan 50 mg Tab: 50 mg = 1 tab(s), Oral, Daily, # 90 tab(s), Refills(s) 1, Pharmacy: [facility], 161, cm, 12/18/24 9:23:00 EDT, Height/Length Dosing, 70.5, kg, 12/18/24 9:23:00 EDT, Weight Dosing traZODONE 100 mg Tab: 100 mg, Oral, Once a day (at bedtime), # 30 tab(s), Refills(s) 0, Pharmacy: [facility], 161, cm, 01/02/25 13:57:00 EDT, Height/Length Dosing, [...] Once a day (at bedtime) , Medications (2) Active Scheduled: (0) Continuous: (2) Lactated Ringers 1,000 mL 1,000 mL, IV, 100 mL/hr Sodium Chloride 0.9% 1,000 mL 1,000 mL, IV, 20 mL/hr PRN: (0) Problem list: All Problems Anxiety / SNOMED CT 09639203 / Confirmed BMI 27.0-27.9,adult / SNOMED CT 3879023030 / Confirmed Constipation / SNOMED CT 85485783 / Confirmed Fall / SNOMED CT 5869942 / Confirmed Fecal incontinence / SNOMED CT 252965593 / Confirmed Former smoker / SNOMED CT 92979653 / Confirmed Gastroesophageal reflux disease / SNOMED CT 321591184 / Confirmed HTN (hypertension) / SNOMED CT 6688395766 / Confirmed LLQ abdominal pain / SNOMED CT 586282371 / Confirmed Moderate major depression / SNOMED CT 6211557 / Confirmed Overweight (BMI 25.0-29.9) / SNOMED CT 1015177573 / Confirmed Canceled: BMI 28.0-28.9,adult / SNOMED CT 0214689353 Canceled: Transportation insecurity / SNOMED CT 9826137468839492 Problem added automatically by Discern Expert based on clinical documentation Histories Past Medical History: No active or resolved past medical history items have been selected or recorded. Procedure history: Colonoscopy ([id number]) on 02/06/2025 at 80 Years. Comments: 02/06/2025 9:50 EDT - Samia PUTNAM, Lyndsey andre prep,Ih and sigmoid diverticulosis Hernia ([id number]). Cataracts ([id number]). Colonoscopy ([id number]). Social History Social & Psychosocial Habits Tobacco 01/02/2025 Tobacco Use: Former smoker 20 years ago, Former smoker, quit more Smokeless tobacco use: Never Type: Cigarettes Concerns about tobacco use in household: No Smoking Cessation Yes . Physical Examination Vital Signs 02/07/2025 12:06 EDT Systolic Blood Pressure 140 mmHg HI Diastolic Blood Pressure 86 mmHg 02/07/2025 12:06 EDT Respiratory Rate Monitored 16 br/min 02/07/2025 12:06 EDT SpO2 97 % 02/07/2025 12:06 EDT Temperature Temporal Artery 36.9 DegC Heart Rate Monitored 71 bpm Blood Pressure Location Left arm 02/06/2025 9:21 EDT Heart Rate Monitored 60 bpm Respiratory Rate Monitored 17 br/min 02/06/2025 9:21 EDT Systolic Blood Pressure 133 mmHg Diastolic Blood Pressure 101 mmHg HI 02/06/2025 9:21 EDT SpO2 94 % 02/06/2025 9:15 EDT Respiratory Rate Monitored 22 br/min SpO2 95 % 02/06/2025 9:15 EDT Heart Rate Monitored 61 bpm 02/06/2025 9:15 EDT Systolic Blood Pressure 151 mmHg HI Diastolic Blood Pressure 87 mmHg 02/06/2025 9:10 EDT Heart Rate Monitored 60 bpm Respiratory Rate Monitored 12 br/min SpO2 94 % 02/06/2025 9:10 EDT Systolic Blood Pressure 131 mmHg Diastolic Blood Pressure 90 mmHg HI 02/06/2025 9:05 EDT SpO2 93 % 02/06/2025 9:05 EDT Respiratory Rate Monitored 18 br/min 02/06/2025 9:05 EDT Heart Rate Monitored 61 bpm 02/06/2025 9:05 EDT Systolic Blood Pressure 139 mmHg Diastolic Blood Pressure 84 mmHg 02/06/2025 8:59 EDT SpO2 93 % 02/06/2025 8:59 EDT Respiratory Rate Monitored 19 br/min 02/06/2025 8:59 EDT Systolic Blood Pressure 127 mmHg Diastolic Blood Pressure 76 mmHg 02/06/2025 8:59 EDT Temperature Temporal Artery 36.3 DegC Heart Rate Monitored 61 bpm 02/06/2025 8:55 EDT Heart Rate Monitored 66 bpm bpm Systolic Blood Pressure 130 mmHg mmHg Diastolic Blood Pressure 78 mmHg mmHg SpO2 96 % % 02/06/2025 8:50 EDT Heart Rate Monitored 64 bpm bpm SpO2 97 % % 02/06/2025 8:48 EDT Systolic Blood Pressure 141 mmHg mmHg Diastolic Blood Pressure 84 mmHg mmHg 02/06/2025 8:28 EDT SpO2 94 % 02/06/2025 8:28 EDT Heart Rate Monitored 62 bpm Respiratory Rate Monitored 17 br/min 02/06/2025 8:28 EDT Systolic Blood Pressure 123 mmHg Diastolic Blood Pressure 92 mmHg HI 02/06/2025 8:28 EDT Temperature Temporal Artery 36.8 DegC Blood Pressure Location Left arm Measurements from flowsheet : Measurements 02/07/2025 12:16 EDT Height/Length Measured 161 cm Height/Length Dosing 161.0 cm Weight Dosing 70.4 kg BSA Measured 1.77 m2 Body Mass Index Measured 27.16 kg/m2 Weight Measured 70.4 kg 02/06/2025 8:29 EDT Height/Length Measured 161 cm Height/Length Dosing 161.0 cm Weight Dosing 70.4 kg BSA Measured 1.77 m2 Body Mass Index Measured 27.16 kg/m2 Weight Measured 70.4 kg Airway: Mallampati classification: II (soft palate, fauces, uvula visible). Respiratory: Lungs are clear to auscultation, Respirations are non-labored. Cardiovascular: Regular rhythm. Plan [place] [employer] Anesthesiologists (ASA) physical status classification: Class III. Anesthetic Preoperative Plan: Anesthesia General, and -TIVA. Electronically Signed By: Mango Dodson Jr., DO Date and Time Signed: 02/07/25 12:36 EDT Patient Care team information Care Team Personnel Name: PETE TORRES CNP Position: [facility]ulatory - Primary Care - [facility] Member Role: Primary Care Physician Address: [address] [place] [phone] Telecom: Care Team Related Persons Name: GRADY ANDERSEN Name: GRADY ANDERSEN Name: Grady Andersen Name: GRADY ANDERSEN Insurance Providers Guarantor name: Health Plan Information #: 1 Payer: [employer] Payer Identifier: [id number] Member Number: [id number] Group Number: [id number] Subscriber Identifier: [id number] Relationship to Subscriber: Self Coverage Type: MEDICARE Coverage Verification Date: 25 Telecom: [phone] Address: [facility] [id number]
--- OUTSIDE RECORDS SUMMARY | 2025-02-08 03:25 | XMS_ITS | Encounter Summary ---
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 States had 2 colonoscopys in the past 5 days, developed left shoulder pain this evening. Squad found her to be in SVT, gave 1 dose of adenosine and converted to NSR. States ct shows a laceration of the spleen * Auth/Cert (Routine) Specialty Diagnoses / Procedures Referred By Contac t Referred To Contact Emergency Medicine Diagnoses Superficial (capsular) laceration of spleen, initial encounter Hemoperitoneum Colonic Perforation Procedures na Anthony Pierce MD [address] [place] [address] Phone: tel: fax: [facility] [address] [place] [id number] Phone: tel: Referral ID Status Reason Start Date Expiration Date Visits Re quested Visits Authorized [id number] 3 3 Encounter Details Date Type Department Care Team (Late st Contact Info) Description 02/08/2025 3:25 AM EDT - 02/09/2025 5:52 PM EDT Hospital Encounter [place] [phone] Ang Pagan MD [address] [place], [place] [id number] Anthony Pierce MD [address] [place], [place] [id number] Capsular tears to spleen, initial encounter (Primary Dx); Left lower quadrant abdominal pain; Hemoperitoneum Discharge Disposition: Discharge to Home Social History Tobacco Use Types Packs/Day Years Used Date Smoking Tobacco: Never Assessed [facility] Utilities Answer Date Recorded In the past 12 months has th e electric, gas, oil, or water company threatened to shut off services in your home? No 02/08/2025 Humiliation, Afraid, Rape, and Kick questionnair e Answer Date Recorded Fear of Current or Ex-Partner Not on file Within the last year, have y ou been humiliated or emotionally abused in other ways by your partner or ex-partner? No 02/08/2025 Physically Abused Not on file 02/08/2025 Sexually Abused Not on file 02/08/2025 Hunger Vital Sign Answer Date Recorded Within the past 12 months, y ou worried that your food would run out before you got the money to buy more. Never true 02/09/20 25 Ran Out of Food in the Last Year Not on file 02/08/2025 PRAPARE - Transportation Answer Date Re corded In the past 12 months, has l ack of transportation kept you from medical appointments or from getting medications? No 02/08/2025 Lack of Transportation (Non-Medical) Not on file 02/08/2025 Housing Stability Vital Sign Answer Kaushal e Recorded In the last 12 months, was t here a time when you were not able to pay the mortgage or rent on time? No 02/08/2025 Number of Times Moved in the Last Year Not on fi le 02/08/2025 Homeless in the Last Year Not on file 2024 Utilities - Historical Answer Date Bernardo rded In the past 12 months has th e electric, gas, oil, or water company threatened to shut off services in your home? No 02/08/2025 Comments Unknown Sex and Gender Information Value Date Recorded Sex Assigned at Not on file Legal Sex Female 11:42 PM EDT Gender Identity Not on file Sexual Orientation Not on file documented as of this encounter Last Filed Vital Signs Vital Sign Reading Time Taken Comments Blood Pressure 138/90 02/09/2025 2:10 PM EDT Pulse 80 02/09/2025 2:10 PM EDT Temperature 37.2 C (99 F) 02/09/2025 2:10 PM EDT Respiratory Rate 18 02/09/2025 2:10 PM EDT Oxygen Saturation 95% 02/09/2025 2:10 PM EDT Inhaled Oxygen Concentration - - Weight 67 kg (147 lb 12.8 oz) 02/08/2025 7:00 AM EDT Height 160 cm (5' 3 ) 02/08/2025 7:00 AM EDT Body Mass Index 26.18 02/08/2025 7:00 AM EDT documented in this encounter Discharge Instructions * Discharge Instructions* Babar Azul MD - 02/09/2025 2:50 PM EDT Images from the original note were not included. [facility] Department of Surgery DISCHARGE INSTRUCTIONS Taylor Tijerina [id number] Admission Date: 02/08/2025 3:25 AM Principal Diagnosis: Colonic Perforation Other Diagnosis: Patient Active Hospital Problem List- Patient Active Problem List Diagnosis Code Capsular tears to spleen, initial encounter S36.030A Physician: Anthony Pierce MD Operations: INSTRUCTIONS If you begin to experience progressive and rapidly increasing pain that seems out of proportion to what you normally have been experiencing from your baseline pain after surgery/injury, or if your fingers become numb and/or turn blue and cold - you NEED TO CALL US IMMEDIATELY. Alternatively, you may come into the [facility] Emergency Department IMMEDIATELY for an emergent evaluation. Diet- You may resume your regular diet Follow-Up- Follow up with your primary care provider in 1 week (Dr. Nguyen) If you have questions or concerns, if your condition worsens or you develop new symptoms such as weakness, numbness or tingling please call the [facility] Line at [phone]. After hours and on weekends, please call the surgery resident on-call at . Ask the tapping machine operator automatic for the general surgery resident special education director. Babar Azul MD documented in this encounter Progress Notes * Katharine Pérez LISW - 02/09/2025 12:23 PM EDT On admission screen, the patient reports suicide ideation without a plan, prompting a Social Work behavioral health consultation. Social Work met with the patient to discuss concerns for wishes they were . Based upon updated assessment, the level of suicide risk is unchanged. The Patient is notcurrently linked to outpatient services. SW provided necessary resources and encouraged the patientto follow up. Met with pt who denies answering yes to any suicide risk assessment questions. Pt denies SI/HI at this time and feels this was entered in error. Weekend [facility] [place] LISW-S Epic Chat documented in this encounter H&P Notes * Gustavo Caruso MD - 02/08/2025 4:27 AM EDT Images from the original note were not included. EMERGENCY GENERAL SURGERY History and Physical Taylor Tijerina [id number] Reason for Consult: Abdominal pain after colonoscopy History (HPI) Taylor Tijerina is a 80 year old female with PMH of constipation, HTN, HLD, and depression who presents as a transfer from OSH for management of a suspected splenic capsular tear after colonoscopy. Patient reports she was concerned about her constipation and wanted to rule out a cancer or obstruction so she underwent a colonoscopy. She initially had a colonoscopy on 02/05, but that was aborted due to poor prep. She then underwent repeat colonoscopy on 02/07. Patient states when she got home from her colonoscopy she felt pain in her LUQ and L shoulder. She also felt dizzy and felt like she wasgoing to pass out so she called EMS who brought her to OSH. Workup in OSH ED notable for CTAP concerning for splenic capsular tear, patient transferred to for further management. On exam, patient states her symptoms are improving. Denies any more dizziness. Denies fevers, chills, chest pain, SOB, nausea, emesis, hematochezia, or melena. Thinners: denies PSHx: previous hernia repair, patient unclear on details Medical History[1] Surgical History[2] No current outpatient medications Allergies: Patient has no allergy information on record. Family History: family history is not on file. Social History: Smoking (Denies), EtOH (social), Drug Use (denies) Review of Systems (Bold is Positive + ) See HPI Physical Exam BP 122/79 Pulse 72 Temp 98.5 ??F (36.9 ??C) (Oral) Resp 18 SpO2 98% General: No acute distress, awake Cardiac: Non-tachycardic Pulmonary: Non-labored breathing. Symmetric chest rise. Abdomen: Soft, non-distended. No peritonitis. TTP in LUQ Extremities: Moving all extremities spontaneously Skin: Warm, moist Neuro: AOx3 Labs: N/A \ N/A / N/A / N/A \ CBC: No results found for requested labs within last 120 days. N/A N/A N/A / \ N/A N/A N/A N/A BMP: No results found for requested labs within last 120 days. Studies: CTAP from OSH reviewed ASSESSMENT & PLAN Taylor Tijerina is a 80 year old female with PMH as noted above who presents with splenic capsular tear after colonoscopy. Patient with splenic capsular tear after colonoscopy. Will plan for serial HGBs and serial abdominal exams to monitor for worsening splenic bleed. Neuro: MMPR, minimize opioids; continue home psych meds CV: CTM vitals, continue home statin Pulm: BPH, IS, GI: Diet: NPO FEN: LR at 75, replete lytes PRN : strict I/O HEME: q6h CBC ID: [email or web address] MSK: activity as tolerated DVT ppx: lovenox 40 daily Dispo: RNF Discussed with Dr. Stan Caruso MD General Surgery [1] No past medical history on file. [2] No past surgical history on file. documented in this encounter Consult Notes * Meron Alba, OT - 02/09/2025 12:03 PM EDTAssociated Order(s): IP OCCUPATIONAL THERAPY SERVICE REQUEST OCCUPATIONAL THERAPY INITIAL EVALUATION Patient seen from 1012 to 1022 on GC 5E unit for 10 minutes. Reason for Admit: 80 y.o. adm with abdominal pain s/p coloscopy Diagnosis: Subcapsular splenic tear s/p colonoscopy Hemoperitoneum Precautions/Activity Order: moderate falls, full code, NPO, activity as tolerated Procedures this admit: N/a Past Medical and Surgical History: PMH: Medical History[1] PSH: Surgical History[2] SUBJECTIVE: Patient Subjective: I'm trying to take a bath. Patient Identified Goal(s): return home, eat a meal Home Living Situation - pt lives with her daughter and JUANITO Prior Functional Status: Independent Living independent with Activities of Daily Living Independent Ambulation without assistive device no device Independent with Instrumental Activities of Daily Living Assistance Available at Home: 09/01 assist from family Patient lives in a 2 story home +ramp to enter. Full Bathroom on 2nd level Bedroom on 2nd level. Stair lift to 2nd level Equipment available at home: cane, RW OBJECTIVE: Patient Identification: patient verbalizing his/her name and date of . Risks and benefits of occupational therapy: Patient informed of risks and benefits of treatment Appearance: seated EOB, hep-locked IV Alertness: WFL Affect: WNL Cooperation/Behavior: Appropriate dialogue with therapist and Pleasant and cooperative Communication: WFL Pain: Pain rating: mild/10, Location: abdomen Pain Relief Interventions Implemented: Rest Self Care: Assistance Level Dep Max Mod Min CG CS DS ID I Set-Up Comment Feeding x Per pt report, full liquid Grooming/Hygiene x Hand hygiene in standing Bathing:UB x Sponge bathing at sink Bathing:LB x Sponge bathing at sink Dressing:UB x Mange gown in standing Dressing: LB x Per pt report Toileting x Per pt report Transfers/Bed Mobility: Assistance Level Dep Max Mod Min CG CS DS ID I Set-Up Comment Toilet Transfers x Bed Transfers x Seated EOB to standing without DME Bed Mobility x Seated EOB on arrival Functional mobility x In room mobility without DME. No LOB. Mobilizes to restroom to complete ADLs Endurance for Self Care: Good Static Sitting Balance: Good Dynamic Sitting Balance: Good UE Motor: BUE AROM WFL Vision/Perception: WFL Cognition: Orientation: Oriented to person, place, and date Follows Commands: WFL Attention: WNL Memory: WFL Problem Solving: WFL Safety/Judgement: insight beginning to develop Sequencing: Able to sequence simple ADLs without cues. Other Specialized Tests: None Patient/Family Education: Instructed patient in roles of therapy 02/09/2025 6 Clicks Daily Activity OT Help from another person Eating meals 4 Help from another person taking care of personal grooming 4 Help from another person bathing 4 Help from another person putting on and taking off regular upper body clothing 4 Help from another person putting on and taking off regular lower body clothing 4 Help from another person toileting 4 OT 6 Clicks Score 24 6 Click Score Guidelines: 1 - Unable = Total/Dependent Assist 2 - A lot = Max/Moderate Assist 3 - A little = Minimum/Contact Guard Assist/Supervision 4 - Non = Modified [place]/Independent ASSESSMENT: Patient is functionally appropriate for discharge home once medically cleared. No further Occupational Therapy Services recommended at this time. PLAN: Taylor Tijerina Patient will be discharged from acute OT services at this time. Please re-consult should patient present with decline in function. able to discuss the evaluation findings and treatment plan with the patient/family. The patient/family did participate in the development of plan and goals. Meron Alba OTR/L NA = Not Assessed, I = Independent, ID = Modified Independent, Sup = Supervised, Set up = Physical Assistance for Set-up Only, Min = Minimal Assistance, Mod = Moderate Assistance, Max = Max assistance; Dep = Dependent; AROM = Active Range of Motion;PROM=Passive Rangeof Motion; MMT = Manual Muscle Test; UB = Upper Body; LB = Lower Body [1] No past medical history on file. [2] No past surgical history on file. * Camila Morel - 02/09/2025 8:56 AM EDT Images from the original note were not included. Dietitian vs DietaryTech: Dietary TechDiet [employer] Station Department Manager Nutrition Screening Reason for visit: Positive nutrition screen : wt loss Assessment Admitting Diagnosis: Colonic Perforation High risk nutrition diagnosis: No - no points Past Medical History: Medical History[1] Food Allergies: none Labs: LFT's (last 3 years, up to 8 values) 02/08/2025 5:00 AM T Prot 5.9 Albumin 3.9 D Bili 0.11 T Bili 0.6 Alk Phos 63 ALT 21 AST 26 Albumin: Greater than 3 - no points Skin Integrity: No pressure ulcers at this time - no points Fluid Accumulation: wnl Diet Order: Clear Liquid % PO Intake: Less than 50% for greater than and equal to 5 days - 4 points Intake Difficulties: Decreased appetite - 0 points 5' 3 155# UBW: 155# per pt BMI: 27.5 BMI Screening value: 21 or greater - 0 points % Weight Loss: none Weight Loss Screening Value: Not significant - 0 points Education: No nutrition education indicated at this time. Comments: Pt c/o: decreased appetite for the past several days, pt denies recent wt lss Number of Points: 4 Nutritional Plan of Care: Less than or equal to 6 points: At this time, patient is at low nutritionrisk. DTR to provide routine follow up. Will continue to follow, Camila Morel Fryline Attendant Pager#[phone] Time spent on patient care: 15 minutes [1] No past medical history on file. * Tracy Jeffery, PT - 02/08/2025 12:26 PM EDTAssociated Order(s): IP PHYSICAL THERAPY SERVICE REQUEST PHYSICAL THERAPY ACUTE EVALUATION Referral received, chart reviewed. Patient seen from 1143 to 1203 on 5E unit for 20 minutes. Admit date: 02/08/2025 3:25 AM Reason for Admit: 80 year old female presenting with splenic capsular tear after colonoscopy The patient states that few hours prior to arrival she was in the shower feeling lightheaded and had developed right shoulder pain as well as left lower abdominal pain, so called EMS. States that while she was on her way to the hospital her heart rate was in the 200s. Diagnosis: Capsular tears to spleen, initial encounter [S36.030A] Left lower quadrant abdominal pain [R10.32] Hemoperitoneum [K66.1] Precautions: Falls Risk: Moderate Code Status: Full Diet: NPO Activity Orders: Activity as tolerated Past Medical and Surgical History: PMH: Medical History[1] PSH: Surgical History[2] Identification was verified by patient verbalizing his/her name and date of . Risks and Benefits of physical therapy: Patient informed of risks and benefits of treatment SUBJECTIVE: Patient Subjective: My shoes help me balance better Patient Identified Goal(s): To go home and return to [facility] [facility] Status: Mobility Status: Independent without AD ADL/IADL Independent Driving: No, daughter drives to/from appointments Falls: 1 fall(s) in the past 6 months. Pt reports a fall last week when bending over to kiss her dog Home: Living situation: lives in a house Lives with daughter, daughter's , and son Ramp to enter Stair lift to bedroom/bathroom Assistance available: Family 09/01 Equipment available: cane and rolling walker OBJECTIVE: Appearance: Patient supine, PIV hep locked Behavior: Pleasant and agreeable to PT Eval Orientation: A&O 4 Command Following: Follows multi step commands consistently Pain: Pain location abdomen, Scale 3/10; Pain Relief Interventions Implemented: Positioning Sensation: Denied numbness or tingling Coordination: WFL AROM: BUEs and BLEs WFL Balance: Good static standing, Fair dynamic standing balance Transfers/Bed Mobility Assistance Level Dep Max Mod Min CG CS DS ID I Set-Up Comment Rolling X Supine to Sit X Cues for log roll technique to prevent increase in inter abdominal pressure Sit to/from Stand X No AD Transfers X No AD Ambulation X X CGA 75 ft without AD- loss of balance to the L most notable during turning and dual task conversation requiring CGA to correct. Administered RW x 100 ft with close supervision. Verbal cues for sequencing RW with steps while maintaining COM in JOSE of RW especially during turning. Able to progress to close supervision with gaittraining and proper AD of RW Session ended with patient up in chair.Call patel and telephone within reach. Patient instructed to call for staff assist for all mobility. RN aware of patient location and mobility status. Patient/Family Education: Educated on PT role in acute care setting Precautions including balancing activity with rest, protective log roll, recommend proper AD use ofRW to prevent falls Review and emphasis on importance of continued mobility in the hospital setting Educated patient not to stand or mobilize without staff assist to reduce risk for falls Use of call patel and nursing assistance Discussed post acute recs Answered patient questions/concerns 02/08/2025 6 Clicks Basic Mobility PT Difficulty turning over in bed 3 Difficulty sitting down and standing up from a chair with arms 3 Difficulty moving from lying on back to sitting on the side of the bed 3 Help from another person moving to and from bed to a chair 3 Help from another person to walk in hospital room 3 Help from another person climbing 3-5 steps with a railing 3 PT 6 Clicks Score 18 6 Click Score Guidelines: 1 - Total = Requires total assistance, or cannot do at all. 2 - A lot = Requires a lot of help (maximum to moderate assistance) Can use assistive devices. 3 - A little = Requires a little help (supervision, minimal assistance) Can use assistive devices. 4 - None = Does not require any help and does the activity independently. Can use assistive devices. ASSESSMENT: At time of evaluation, pt demonstrates decreased strength, endurance, and balance limiting independence with functional mobility. Pt presenting below baseline status, will benefit from PT services during hospitalization to address. Patient is functionally appropriate for discharge home once medically cleared. Will continue to follow patient while in hospital as appropriate. Recommend Outpatient Physical Therapy. Problems: Pain Decreased ROM/strength Decreased functional mobility Decreased balance Impaired safety awareness Rehabilitation Potential: Good Goals (to be achieved by discharge from acute care): Patient will perform bed mobility independent Patient will perform sit tofrom stand without device independent Patient will transfer from bed to/from chair without device independent Patient will demo ability to ambulate >/= 150 ft without device independent and ability to turn,side step and retro step without observed loss of balance PLAN OF CARE: Frequency: Patient to be seen 3-5 times a week Interventions: Functional mobility ROM/Strengthening Home exercise program Discharge planning and equipment ordering as needed Patient /Family education The evaluation findings and treatment plan were discussed with the patient/family. The patient/family indicated understanding and agreement with the plan. Tracy Jeffery PT, DPT NA = Not Assessed, I = Independent, ID = Modified Independent, Sup = Supervised, Set up = Physical Assistance for Set-up Only, Min = Minimal Assistance, Mod = Moderate Assistance, Max = Max assistance; Dep = Dependent; AROM = Active Range of Motion; PROM = Passive Range of Motion; MMT = Manual Muscle Test; LE = Lower Extremity; VC = verbal cues; TC = tactile cues; PLB = pursed lip breathing [1] No past medical history on file. [2] No past surgical history on file. documented in this encounter ED Notes * Ang Pagan MD - 02/08/2025 10:26 AM EDT Images from the original note were not included. EMERGENCY DEPARTMENT - VISIT NOTE HISTORY OF PRESENT ILLNESS Chief Complaint Patient presents with Abdominal pain From [place] as a transfer. States had 2 colonoscopys in the past 5 days, developed left shoulder pain this evening. Squad found her to be in SVT, gave 1 dose of adenosine and converted to NSR. States ct shows a laceration of the spleen Yard Hand: not needed - patient preferred language is Bulgarian. The history is provided by the Patient. Taylor Tijerina is a 80 year old female presenting to the ED for abdominal pain. Sent from OSH. The patient states that few hours prior to arrival she was in the shower feeling lightheaded and had developed right shoulder pain as well as left lower abdominal pain, so called EMS. States that while shewas on her way to the hospital her heart rate was in the 200s. States that she recently had 2 colonoscopies in 1 week, had the 2nd colonoscopy due to poor prep during the 1st. States that they found something in her spleen while at the other hospital. Denies chest pain, shortness breath, nausea, vomiting, diarrhea, fevers. Per EMS report, patient transferred from [facility] for splenic laceration. While patient being transferred to initial hospital via EMS from home found to be in SVT given 1 dose of adenosine with conversion to normal sinus. PAST HISTORY Pertinent Past History: Medical History[1] Problem List[2] Pertinent Social History: Social History[3] PHYSICAL EXAM BP 142/88 (BP Location: left arm) Pulse 71 Temp 98.2 ??F (36.8 ??C) (Oral) Resp 18 Ht 5' 3 (1.6 m) Wt 147 lb 12.8 oz (67 kg) SpO2 98% BMI 26.18 kg/m?? Physical Exam Constitutional: General: She is not in acute distress. Appearance: She is not ill-appearing or diaphoretic. HENT: Head: Normocephalic and atraumatic. Cardiovascular: Rate and Rhythm: Normal rate and regular rhythm. Pulses: Radial pulses are 2+ on the right side and 2+ on the left side. Dorsalis pedis pulses are 2+ on the right side and 2+ on the left side. Heart sounds: Normal heart sounds. No murmur heard. Pulmonary: Effort: Pulmonary effort is normal. No tachypnea, accessory muscle usage or respiratory distress. Breath sounds: Normal breath sounds. No wheezing, rhonchi or rales. Abdominal: Palpations: Abdomen is soft. Tenderness: There is abdominal tenderness in the left lower quadrant. There is no guarding or rebound. Comments: No ecchymosis to abdominal wall. Musculoskeletal: Cervical back: Full passive range of motion without pain. Right lower leg: No edema. Left lower leg: No edema. Skin: General: Skin is warm. Capillary Refill: Capillary refill takes less than 2 seconds. Coloration: Skin is not jaundiced. Neurological: Mental Status: She is alert and oriented to person, place, and time. Motor: Motor function is intact. MEDICAL DECISION MAKING and ED COURSE Patient is a 80-year-old the male with past medical history of hypertension, depression, GERD who presents to the ED as transfer from [facility] for hemoperitoneum. On initial examination, thept is HDS and afebrile. Images from OSH were uploaded and reviewed, repeat labs obtained. Patient has hemoperitoneum in LUQ from splenic capsular tear . Mild anemia on labs without hypotension. No significant electrolyte or hepatic abnormalities. EGS consulted, they evaluated the pt and recommendedadmission to their service for serial hemoglobins and abdominal exams. Evaluated by EM attending Domo Pagan Course: ED Course as of 02/08/25 1026 Sat Feb 08, 2025 0518 Lactate wnl. [NW] ED Course User Index [NW] Kait Martínez MD IMPRESSION AND DISPOSITION Clinical Impression Diagnosis Comment Capsular tears to spleen, initial encounter [S36.030A] Left lower quadrant abdominal pain [R10.32] Hemoperitoneum [K66.1] Disposition: Admitted to Floor: Surgery Service. Report called to Lien caruso. (02/08/25 0610) The patient has received a medical screening examination and within reasonable clinical confidence the patient was stabilized within the capabilities of the emergency department and requires admission / observation. Counseling: Spoke with the patient and discussed today???s findings, in addition to providing specific details for the plan of care and expected course. They were given the opportunity to ask questions. This note was created with the assistance of speech recognition software. Kait Martínez MD ATTENDING NOTE I saw and evaluated the patient. I personally obtained the vazquez and critical portions of the historyand physical exam. I reviewed the resident's documentation and discussed the patient with the resident. I agree with the resident's medical decision making as documented in the resident's note. Ang Pagan MD [1] No past medical history on file. [2] Patient Active Problem List Diagnosis Code Capsular tears to spleen, initial encounter S36.030A [3] documented in this encounter Miscellaneous Notes * Care Plan Note - Paul Roach MD - 02/08/2025 4:27 PM EDT Images from the original note were not included. [facility] Department of Surgery SERIAL ABDOMINAL EXAM Taylor Tijerina [id number] 4:27 PM On exam, patient states that their abdominal pain is improved when compared to prior exam. Pt states their pain is minimal, primarily located in the LUQ. Patient denies nausea vomiting fever chills chest pain shortness of breath. Flatus: No. BM: No. BP 129/83 (BP Location: left arm) Pulse 68 Temp 98.4 ??F (36.9 ??C) (Oral) Resp 16 Ht 5' 3 (1.6 m) Wt 147 lb 12.8 oz (67 kg) SpO2 96% BMI 26.18 kg/m?? General: No acute distress, awake, non-diaphoretic Abdomen: Soft, Mild Distention, and Non-Tender Extremities: Moving all extremities spontaneously Neuro: Alert and oriented x3 On assessment, patient's abdominal exam is unchanged. Will continue to monitor for changes in hemodynamic status and exam. 9PM Abdominal exam completed by chief resident. No acute distress, reports her pain is much better. Hungry, denies any cp/sob/f/c/n/v. Exam with minimal tenderness to LUQ, otherwise soft without peritonitis. Continue serial abdominal exams for now Paul Roach MD General Surgery PGY-4 Acute Care Surgery Consult: [phone] Floor: [phone] documented in this encounter Plan of Treatment Scheduled Orders Name Type Priority Associated Diagnoses Orde r Schedule ANTI [id number] HEPARIN Lab STAT When Specimen Available/Needed for 1 Occurrences starting 02/08/2025 documented as of this encounter Procedures Procedure Name Priority Date/Time Associated Diagnosis Comments COMPLETE BLOOD COUNT Routine 02/09/2025 2:10 PM EDT COMPLETE BLOOD COUNT STAT 02/09/2025 1:53 AM EDT BASIC METABOLIC PANEL STAT 02/09/2025 1:37 AM EDT PHOSPHORUS STAT 02/09/2025 1:37 AM EDT MAGNESIUM STAT 02/09/2025 1:37 AM EDT COMPLETE BLOOD COUNT STAT 02/08/2025 7:18 PM EDT GOLD TOP - SST TUBE, BLOOD Routine 02/08/2025 6:48 PM EDT COMPLETE BLOOD COUNT STAT 02/08/2025 1:13 PM EDT CONFIRMATION ABO/RH STAT 02/08/2025 7 :32 AM EDT TYPE AND SCREEN STAT 02/08/2025 7:22 AM EDT PROTHROMBIN TIME AND INR STAT 02/08/2025 5:01 AM EDT LACTIC ACID STAT 02/08/2025 5:01 AM EDT HC HEPATIC FUNCTION PANEL STAT 02/08/2025 5:00 AM EDT BASIC METABOLIC PANEL STAT 02/08/2025 5:00 AM EDT COMPLETE BLOOD COUNT STAT 02/08/2025 5:[address] BODY IMAGE IMPORT STAT 02/08/2025 4:31 AM EDT XRAY CHEST IMAGE IMPORT STAT 02/08/2025 4:31 AM EDT documented in this encounter Results * (ABNORMAL) COMPLETE BLOOD COUNT (02/09/2025 2:10 PM EDT) WBC 7.2 4.5 - 11.5 K/uL 02/09/2025 2:24 PM EDT [facility] RBC 3.54(L) 4.00 - 5.20 M/uL 02/09/2025 2:24 PM EDT [facility] Hemoglobin 11.2(L) 12.0 - 15.0 g/dL 02/09/2025 2:24 PM EDT [facility] Hematocrit 31.8(L) 36.0 - 46.0 % 02/09/2025 2:24 PM EDT [facility] MCV 90 80 - 100 fL 02/09/2025 2:24 PM EDT [facility] MCH 31.6 26.0 - 34.0 pg 02/09/2025 2:24 PM EDT [facility] MCHC 35.1 32.0 - 35.9 g/dL 02/09/2025 2:24 PM EDT [facility] Platelet 256 150 - 400 K/uL 02/09/2025 2:24 PM EDT [facility] RDW-CV 14.4 11.5 - 14.5 % 02/09/2025 2:24 PM EDT [facility] MPV 8.0 7.5 - 11.2 fL 02/09/2025 2:24 PM EDT [facility] Blood BLOOD SPECIMEN / Unknown Venipuncture / Unknown 02/09/2025 2:10 PM EDT 02/09/2025 2:17 PM EDT us Babar Azul MD 98 GENERAL LAB Final Resu lt [facility] [address] [place] [address] * (ABNORMAL) COMPLETE BLOOD COUNT (02/09/2025 1:53 AM EDT) WBC 5.5 4.5 - 11.5 K/uL 02/09/2025 2:23 AM EDT S PATHOLOGY LABORATORY RBC 3.17(L) 4.00 - 5.20 M/uL 02/09/2025 2:23 AM EDT [facility] Hemoglobin 10.0(L) 12.0 - 15.0 g/dL 02/09/2025 2:23 AM EDT [facility] Hematocrit 29.6(L) 36.0 - 46.0 % 02/09/2025 2:23 AM EDT [facility] MCV 93 80 - 100 fL 02/09/2025 2:23 AM EDT [facility] MCH 31.6 26.0 - 34.0 pg 02/09/2025 2:23 AM EDT [facility] MCHC 33.8 32.0 - 35.9 g/dL 02/09/2025 2:23 AM EDT [facility] Platelet 219 150 - 400 K/uL 02/09/2025 2:23 AM EDT [facility] RDW-CV 14.1 11.5 - 14.5 % 02/09/2025 2:23 AM EDT [facility] MPV 7.9 7.5 - 11.2 fL 02/09/2025 2:23 AM EDT [facility] Blood BLOOD SPECIMEN / Unknown Venipuncture / Unknown 02/09/2025 1:53 AM EDT 02/09/2025 2:17 AM EDT us Gustavo Caruso MD 98 GENERAL LAB Final Result [facility] [address] [place] [address] * PHOSPHORUS (02/09/2025 1:37 AM EDT) Pathologist [facility] Phosphorus, Serum 2.8 2.5 - 5.0 mg/dL 02/09/2025 2:06 AM EDT [facility] Blood BLOOD SPECIMEN / Unknown Venipuncture / Unknown 02/09/2025 1:37 AM EDT 02/09/2025 1:41 AM EDT us Gustavo Caruso MD 98 GENERAL LAB Final Result Performing Organization Address [facility] de Phone Number [facility] [address] [place] [phone] * MAGNESIUM (02/09/2025 1:37 AM EDT) Pathologist [facility] Magnesium 1.9 1.9 - 2.7 mg/dL 02/09/2025 2:06 AM EDT [facility] Blood BLOOD SPECIMEN / Unknown Venipuncture / Unknown 02/09/2025 1:37 AM EDT 02/09/2025 1:41 AM EDT us Gustavo Caruso MD 98 GENERAL LAB Final Result Performing Organization Address [facility] de Phone Number [facility] [address] [place] [phone] * (ABNORMAL) BASIC METABOLIC PANEL (02/09/2025 1:37 AM EDT) Pathologist [facility] Glucose 92 74 - 109 mg/dL 02/09/2025 2:06 AM EDT [facility] Sodium 139 136 - 145 mmol/L 02/09/2025 2:06 AM EDT [facility] Potassium 3.6 3.5 - 5.0 mmol/L 02/09/2025 2:06 AM EDT [facility] Carbon Dioxide 22 21 - 31 mmol/L 02/09/2025 2:06 AM EDT [facility] Chloride 108(H) 98 - 107 mmol/L 02/09/2025 2:06 AM EDT [facility] Blood Urea Nitrogen 10 7 - 25 mg/dL 02/09/2025 2:06 AM EDT [facility] Creatinine 0.72 0.60 - 1.20 mg/dL 02/09/2025 2:06 AM EDT [facility] Calcium 9.0 8.6 - 10.3 mg/dL 02/09/2025 2:06 AM EDT [facility] Anion Gap 13 10 - 20 02/09/2025 2:06 AM EDT [facility] Estimated GFR (CKD-EPI) 84 >=60 mL/min/1. 73sqm 02/09/2025 2:06 AM EDT [facility] Comment: 2020 CKD EPI Equation using Creatinine without Race Comment: Estimated glomerular filtration rate (eGFR) is calculated without a race coefficient. Values should be interpreted in the context of the patient's full clinical presentation. Reference: 1. Phill C, Jose Roberto M, Bella LIRA, et al.. A Unifying Approach for GFR Estimation: Recommendations of the NKF-ASN Task Force on Reassessing the Inclusion of Race in Diagnosing Kidney Disease. [place] Journal of Kidney Diseases 2021;79(2):268- 88.e1. 2. N Engl J Med 1 Vol. 385 Issue 19 Pages 0380-7302 Blood BLOOD SPECIMEN / Unknown Venipuncture / Unknown 02/09/2025 1:37 AM EDT 02/09/2025 1:41 AM EDT Gustavo Caruso MD 98 GENERAL LAB Final Result [facility] [address] [place] [address] * (ABNORMAL) COMPLETE BLOOD COUNT (02/08/2025 7:18 PM EDT) WBC 6.8 4.5 - 11.5 K/uL 02/08/2025 7:46 PM EDT [facility] RBC 3.46(L) 4.00 - 5.20 M/uL 02/08/2025 7:46 PM EDT [facility] Hemoglobin 10.9(L) 12.0 - 15.0 g/dL 02/08/2025 7:46 PM EDT [facility] Hematocrit 31.6(L) 36.0 - 46.0 % 02/08/2025 7:46 PM EDT [facility] MCV 91 80 - 100 fL 02/08/2025 7:46 PM EDT [facility] MCH 31.6 26.0 - 34.0 pg 02/08/2025 7:46 PM EDT [facility] MCHC 34.6 32.0 - 35.9 g/dL 02/08/2025 7:46 PM EDT [facility] Platelet 244 150 - 400 K/uL 02/08/2025 7:46 PM EDT [facility] RDW-CV 14.3 11.5 - 14.5 % 02/08/2025 7:46 PM EDT [facility] MPV 8.3 7.5 - 11.2 fL 02/08/2025 7:46 PM EDT [facility] Blood BLOOD SPECIMEN / Unknown Venipuncture / Unknown 02/08/2025 7:18 PM EDT 02/08/2025 7:41 PM EDT Gustavo Caruso MD 98 GENERAL LAB Final Result [facility] [address] [place] [phone] * GOLD TOP - SST TUBE, BLOOD (02/08/2025 6:48 PM EDT) Extra Tube Done 02/08/2025 9:01 PM EDT [facility] Blood BLOOD SPECIMEN / Unknown Venipuncture / Unknown 02/08/2025 6:48 PM EDT 02/08/2025 7:12 PM EDT us Anthony Pierce MD EC LAB ORDER ONLY Final Result [facility] [address] [place] [address] * (ABNORMAL) COMPLETE BLOOD COUNT (02/08/2025 1:13 PM EDT) WBC 6.9 4.5 - 11.5 K/uL 02/08/2025 1:22 PM EDT [facility] RBC 3.64(L) 4.00 - 5.20 M/uL 02/08/2025 1:22 PM EDT [facility] Hemoglobin 11.3(L) 12.0 - 15.0 g/dL 02/08/2025 1:22 PM EDT [facility] Hematocrit 33.2(L) 36.0 - 46.0 % 02/08/2025 1:22 PM EDT [facility] MCV 91 80 - 100 fL 02/08/2025 1:22 PM EDT S PATHOLOGY LABORATORY MCH 31.0 26.0 - 34.0 pg 02/08/2025 1:22 PM EDT [facility] MCHC 33.9 32.0 - 35.9 g/dL 02/08/2025 1:22 PM EDT [facility] Platelet 272 150 - 400 K/uL 02/08/2025 1:22 PM EDT [facility] RDW-CV 14.4 11.5 - 14.5 % 02/08/2025 1:22 PM EDT [facility] MPV 7.8 7.5 - 11.2 fL 02/08/2025 1:22 PM EDT [facility] Blood BLOOD SPECIMEN / Unknown Venipuncture / Unknown 02/08/2025 1:13 PM EDT 02/08/2025 1:17 PM EDT us Gustavo Caruso MD 98 GENERAL LAB Final Result [facility] [address] [place] [phone] * CONFIRMATION ABO/RH (02/08/2025 7:32 AM EDT) ABO Rh Type A Negative 02/08/2025 9:22 AM EDT [facility] Specimen Expiration Date [id number] 02/08/2025 9:22 AM EDT [facility] ABO Rh/Dia/TXRX History A Negative 02/08/2025 9:22 AM EDT [facility] Blood BLOOD SPECIMEN / Unknown Venipuncture / Unknown 02/08/2025 7:32 AM EDT 02/08/2025 7:32 AM EDT us Gustavo Caruso MD EC BLOOD BANK Final Result Performing Organization Address [facility] de Phone Number [facility] [address] [place] [address] * TYPE AND SCREEN (02/08/2025 7:22 AM EDT) ABO Rh Type A Negative 02/08/2025 9:21 AM EDT [facility] Ab Screen Interp Negative 02/08/2025 9:21 AM EDT [facility] Specimen Expiration Date [id number] 02/08/2025 9:21 AM EDT [facility] ABO Rh/Dia/TXRX History No Previous Results 02/08/2025 9:21 AM EDT [facility] Blood BLOOD SPECIMEN / Unknown Venipuncture / Unknown 02/08/2025 7:22 AM EDT 02/08/2025 7:30 AM EDT Gustavo Caruso MD EC BLOOD BANK Final Result Performing Organization Address [facility] Co de Phone Number [facility] [address] [place] [phone] * (ABNORMAL) PROTHROMBIN TIME AND INR (02/08/2025 5:01 AM EDT) Pathologist [facility] Protime 12.9 9.7 - 12.9 sec 02/08/2025 5:45 AM EDT [facility] INR 1.15(H) 0.90 - 1.10 02/08/2025 5:45 AM EDT [facility] Blood BLOOD SPECIMEN / Unknown Venipuncture / Unknown 02/08/2025 5:01 AM EDT 02/08/2025 5:21 AM EDT us Gustavo Caruso MD 98 GENERAL LAB Final Result Performing Organization Address [facility] Co de Phone Number [facility] [address] [place] [address] * LACTIC ACID (02/08/2025 5:01 AM EDT) Lactate 0.8 0.5 - 1.6 mmol/L 02/08/2025 5:17 AM EDT [facility] Blood BLOOD SPECIMEN / Unknown Venipuncture / Unknown 02/08/2025 5:01 AM EDT 02/08/2025 5:12 AM EDT Narrative [facility] - 02/08/2025 5:17 AM EDT This test was developed, and its performance characteristics determined by the Department of Pathology of [facility]. It has not been cleared or approved by the FDA. This test is used for clinical purposes only. us Gustavo Caruso MD 98 GENERAL LAB Final Result Performing Organization Address [facility]/State/ZIP Co de Phone Number [facility] [address] [place] [address] * (ABNORMAL) HEPATIC FUNCTION PANEL (02/08/2025 5:00 AM EDT) Albumin 3.9 3.5 - 5.7 g/dL 02/08/2025 5:54 AM EDT [facility] Bilirubin, Direct 0.11 0.03 - 0.18 mg/dL 02/08/2025 5:54 AM EDT [facility] Bilirubin, Total 0.6 0.3 - 1.0 mg/dL 02/08/2025 5:54 AM EDT [facility] Alkaline Phosphatase 63 34 - 104 IU/L 02/08/2025 5:54 AM EDT [facility] ALT (SGPT) 21 7 - 52 IU/L 02/08/2025 5:54 AM EDT [facility] AST (SGOT) 26 13 - 39 IU/L 02/08/2025 5:54 AM EDT [facility] Protein, Total 5.9(L) 6.0 - 8.3 g/dL 02/08/2025 5:54 AM EDT [facility] Blood BLOOD SPECIMEN / Unknown Venipuncture / Unknown 02/08/2025 5:00 AM EDT 02/08/2025 5:21 AM EDT Gustavo Caruso MD 98 GENERAL LAB Final Result [facility] [address] [place] [address] * (ABNORMAL) BASIC METABOLIC PANEL (02/08/2025 5:00 AM EDT) Glucose 113(H) 74 - 109 mg/dL 02/08/2025 5:54 AM EDT [facility] Sodium 140 136 - 145 mmol/L 02/08/2025 5:54 AM EDT [facility] Potassium 3.9 3.5 - 5.0 mmol/L 02/08/2025 5:54 AM EDT [facility] Carbon Dioxide 25 21 - 31 mmol/L 02/08/2025 5:54 AM EDT [facility] Chloride 107 98 - 107 mmol/L 02/08/2025 5:54 AM EDT [facility] Blood Urea Nitrogen 16 7 - 25 mg/dL 02/08/2025 5:54 AM EDT [facility] Creatinine 0.75 0.60 - 1.20 mg/dL 02/08/2025 5:54 AM EDT [facility] Calcium 9.2 8.6 - 10.3 mg/dL 02/08/2025 5:54 AM EDT [facility] Anion Gap 12 10 - 20 02/08/2025 5:54 AM EDT [facility] Estimated GFR (CKD-EPI) 80 >=60 mL/min/1. 73sqm 02/08/2025 5:54 AM EDT [facility] Comment: 2020 CKD EPI Equation using Creatinine without Race Comment: Estimated glomerular filtration rate (eGFR) is calculated without a race coefficient. Values should be interpreted in the context of the patient's full clinical presentation. Reference: 1. Phill C, Jose Roberto M, Bella DC, et al.. A Unifying Approach for GFR Estimation: Recommendations of the NKF-ASN Task Force on Reassessing the Inclusion of Race in Diagnosing Kidney Disease. [place] Journal of Kidney Diseases 2022;79(2):268- 88.e1. 2. N Engl J Med 2021 Vol. 385 Issue 19 Pages 1188-8599 Blood BLOOD SPECIMEN / Unknown Venipuncture / Unknown 02/08/2025 5:00 AM EDT 02/08/2025 5:21 AM EDT Gustavo Caruso MD 98 GENERAL LAB Final Result [facility] [address] [place], [place] * (ABNORMAL) COMPLETE BLOOD COUNT (02/08/2025 5:00 AM EDT) WBC 8.8 4.5 - 11.5 K/uL 02/08/2025 5:26 AM EDT S PATHOLOGY LABORATORY RBC 3.67(L) 4.00 - 5.20 M/uL 02/08/2025 5:26 AM EDT [facility] Hemoglobin 11.4(L) 12.0 - 15.0 g/dL 02/08/2025 5:26 AM EDT [facility] Hematocrit 34.4(L) 36.0 - 46.0 % 02/08/2025 5:26 AM EDT [facility] MCV 94 80 - 100 fL 02/08/2025 5:26 AM EDT [facility] MCH 31.0 26.0 - 34.0 pg 02/08/2025 5:26 AM EDT [facility] MCHC 33.1 32.0 - 35.9 g/dL 02/08/2025 5:26 AM EDT [facility] Platelet 263 150 - 400 K/uL 02/08/2025 5:26 AM EDT [facility] RDW-CV 14.4 11.5 - 14.5 % 02/08/2025 5:26 AM EDT [facility] MPV 8.1 7.5 - 11.2 fL 02/08/2025 5:26 AM EDT [facility] Blood BLOOD SPECIMEN / Unknown Venipuncture / Unknown 02/08/2025 5:00 AM EDT 02/08/2025 5:21 AM EDT Gustavo Caruso MD 98 GENERAL LAB Final Result [facility] [address] [place] [address] * CT BODY IMAGE IMPORT(TERESA) (02/08/2025 4:31 AM EDT) us Kait DAVILA CT SCAN Final Result * XRAY CHEST IMAGE IMPORT(TERESA) (02/08/2025 4:31 AM EDT) us Kait DAVILA DIAGNOSTIC X-RAY Final Result documented in this encounter Visit Diagnoses Diagnosis Capsular tears to spleen, initial encounter- Primary Capsular tears to spleen, initial encounter Left lower quadrant abdominal pain Hemoperitoneum Hemoperitoneum (nontraumatic) documented in this encounter Administered Medications Inactive Administered Medications - up to 3 most recent administrations Medication Order MAR Action Action Date Dose Rate Site acetaminophen (TYLENOL) 650 MG/20.3ML oral solution 1,000 mg, Oral, EVERY 8 HOURS, First dose on 02/08/25 at 0630, Until Discontinued acetaminophen (TYLENOL) tablet 1,000 mg, Oral, EVERY 8 HOURS, First dose on 02/08/25 at 0630, Until Discontinued Given 02/08/2025 10:05 PM EDT 1,000 mg atorvastatin (LIPITOR) tablet 20 mg, Oral, AT BEDTIME, First dose on 02/08/25 at 2200, Until Discontinued Given 02/08/2025 10:05 PM EDT 20 mg buPROPion ER (WELLBUTRIN XL) 24 hour tablet 300 mg, Oral, DAILY, First dose on 02/08/25 at 0900, Until Discontinued Given 02/09/2025 8:38 AM EDT 300 mg Given 02/08/2025 9:29 AM EDT 300 mg enoxaparin (LOVENOX) 40 MG/0.4ML injection 40 mg 40 mg, Subcutaneous, DAILY, First dose on 02/08/25 at 0900, Until Discontinued Given 02/09/2025 8:39 AM EDT 40 mg Abdominal Tissue Given 02/08/2025 9:31 AM EDT 40 mg Le ft Arm FLUoxetine (PROZAC) capsule 20 mg, Oral, DAILY, First dose on 02/08/25 at 0900, Until Discontinued Given 02/09/2025 8:39 AM EDT 20 mg Given 02/08/2025 9:29 AM EDT 20 mg lactated ringers iv infusion Intravenous, at 75 mL/hr, CONTINUOUS, Starting on 02/08/25 at 0633, Until 02/09/25 at 1014 IV New Bag 02/08/2025 7:14 AM EDT 75 mL/hr oxyCODONE immediate release tablet 2.5 mg, Oral, EVERY 4 HOURS PRN, Starting on 02/08/25 at 0600, Until 02/09/25 at 1952, Moderate Pain (pain score 4,5,6) oxyCODONE immediate release tablet 5 mg, Oral, EVERY 4 HOURS PRN, Starting on 02/08/25 at 0600, Until 02/09/25 at 1952, Severe Pain (pain score 7,8,9,10) pantoprazole (PROTONIX) tablet 40 mg, Oral, DAILY 30 MIN BEFORE BREAKFAST, First dose on 02/08/25 at 0830, Until Discontinued Given 02/09/2025 8:39 AM EDT 40 mg Given 02/08/2025 9:31 AM EDT 40 mg piperacillin-tazobactam (ZOSYN) 3,375 mg in sodium chloride 10 mL IV push 3,375 mg (3.375 g), Intravenous, EVERY 6 HOURS, First dose on 02/08/25 at 0630, Until Discontinued, at 200 mL/hr IV New Bag 02/08/2025 7:14 AM EDT 3,375 mg 200 mL/hr polyethylene glycol (MIRALAX) 17 g packet 17 g, Oral, DAILY, First dose on 02/09/25 at 1100, Until Discontinued senna (SENOKOT) tablet 8.6 mg, Oral, AT BEDTIME, First dose on 02/09/25 at 2200, Until Discontinued documented in this encounter Active and Recently Administered Medications Times are shown in EDT. Scheduled Medication Order 02/07/2025 02/08/2025 02/09/2025 acetaminophen (TYLENOL) 650 MG/20.3ML oral solution(Linked Group 1) 1,000 mg, Oral, EVERY 8 HOURS, First dose on 02/08/25 at 0630, Until Discontinued 0630 (See Alternative - Provider: Chrissy Ruiz RN)1430 (See Alternative - Provider: Maricarmen Brooke RN)2205 (See Alternative - Provider: Angie Maria, INDY) 0630 (See Alternative - Provider: Jolynn Prasad RN)1430 (See Alternative - Provider: Maricarmen Brooke RN) acetaminophen (TYLENOL) tablet(Linked Group 1) 1,000 mg, Oral, EVERY 8 HOURS, First dose on 02/08/25 at 0630, Until Discontinued 629 (Hold/Not Given - Provider: Chrissy Ruiz RN - Reason: NPO)143 (Hold/Not Given - Provider: Maricarmen Brooke RN - Reason: Patient refused)220 (Given - Provider: Angie Maria, INDY) 0630 (Hold/Not Given - Provider: Jolynn Prasad RN - Reason: Patient refused - Comment: No c/o of pain)1430 (Hold/Not Given - Provider: Maricarmen Brooke RN - Reason: Patient refused) atorvastatin (LIPITOR) tablet 20 mg, Oral, AT BEDTIME, First dose on 02/08/25 at 2200, Until Discontinued 2204 (Given - Provider: Angie Maria RN) buPROPion ER (WELLBUTRIN XL) 24 hour tablet 300 mg, Oral, DAILY, First dose on 02/08/25 at 0900, Until Discontinued 928 (Given - Provider: Maricarmen Brooke RN) 08 (Given - Provider: Maricarmen Brooke RN) enoxaparin (LOVENOX) 40 MG/0.4ML injection 40 mg 40 mg, Subcutaneous, DAILY, First dose on 02/08/25 at 0900, Until Discontinued 930 (Given - Provider: Maricarmen Brooke RN) 08 (Given - Provider: Maricarmen Brooke RN) FLUoxetine (PROZAC) capsule 20 mg, Oral, DAILY, First dose on 02/08/25 at 0900, Until Discontinued 928 (Given - Provider: Maricarmen Brooke RN) 08 (Given - Provider: Maricarmen Brooke RN) pantoprazole (PROTONIX) tablet 40 mg, Oral, DAILY 30 MIN BEFORE BREAKFAST, First dose on 02/08/25 at 0830, Until Discontinued 930 (Given - Provider: Maricarmen Brooke RN) 08 (Given - Provider: Maricarmen Brooke RN) piperacillin-tazobactam (ZOSYN) 3,375 mg in sodium chloride 10 mL IV push (CANCELED) 3,375 mg (3.375 g), Intravenous, EVERY 6 HOURS, First dose on 02/08/25 at 0630, Until Discontinued, at 200 mL/hr 0714 (IV New Bag - Provider: Chrissy Ruiz RN)0736 (IV Stop - Provider: Ian Pal RN) polyethylene glycol (MIRALAX) 17 g packet 17 g, Oral, DAILY, First dose on 02/09/25 at 1100, Until Discontinued 1100 (Hold/Not Given - Provider: Maricarmen Brooke RN - Reason: Patient refused) senna (SENOKOT) tablet 8.6 mg, Oral, AT BEDTIME, First dose on 02/09/25 at 2200, Until Discontinued Continuous Medication Order 02/07/2025 02/08/2025 02/09/2025 lactated ringers iv infusion (CANCELED) Intravenous, at 75 mL/hr, CONTINUOUS, Starting on 02/08/25 at 0633, Until 02/09/25 at 1014 0714 (IV New Bag - Provider: Chrissy Ruiz RN)0731 (IVF Infusing Upon Transfer - Provider: Camille Kline RN)0736 (IV Stop - Provider: Ian Pal RN) PRN Medication Order 02/07/2025 02/08/2025 02/09/2025 oxyCODONE immediate release tablet 2.5 mg, Oral, EVERY 4 HOURS PRN, Starting on 02/08/25 at 0600, Until 02/09/25 at 1952, Moderate Pain (pain score 4,5,6) oxyCODONE immediate release tablet 5 mg, Oral, EVERY 4 HOURS PRN, Starting on 02/08/25 at 0600, Until 02/09/25 at 1952, Severe Pain (pain score 7,8,9,10) 0931 (Hold/Not Given - Provider: Maricarmen Brooke RN - Reason: Patient refused) Linked Groups Order Group 1: acetaminophen (TYLENOL) tabletJump to med 1,000 mg, Oral, EVERY 8 HOURS, First dose on 02/08/25 at 0630, Until Discontinued Or acetaminophen (TYLENOL) 650 MG/20.3ML oral solutionJump to med 1,000 mg, Oral, EVERY 8 HOURS, First dose on 02/08/25 at 0630, Until Discontinued documented in this encounter
[2025-02-10] VITALS (13 sets, daily range): BP systolic 123–140; BP diastolic 75–93; PULSE 72–74; TEMP 36.6; O2SAT 93–97; BMI 27.5
--- NOTE | 2025-02-10 20:36 | ED.GENADUL1 ---
HPI HPI - General Adult General Chief complaint: Recheck/Abnormal Lab/Rx Stated complaint: BLOOD PRESSURE/DISORIENTED Time Seen by Provider: 02/10/25 20:33 History of Present Illness HPI narrative: Taylor Tijerina is a jaosn 82-year-old female who presents to the emergency department with her son. Patient is coming to the emergency department this evening to be evaluated for her blood pressure. Patient states that her blood pressure was in the 90s at home and she felt like she was going to pass out. Patient denies any chest pain or shortness of breath. She denies any urinary symptoms. She denies any nausea or vomiting. No diarrhea or constipation. Patient is in charge of her own medications and manages her own medications. She had a recent complex evaluation after a colonoscopy that left her with a perforation as well as a splenic laceration. Patient was transferred to [facility] where she was evaluated. Patient was discharged from the hospital yesterday. Since discharge the patient has felt well and otherwise nontoxic and in no acute distress. She is uncertain if they held her blood pressure medications while she was hospitalized. Patient's son stated that he felt she was confused because he did not call her doctor quickly with the phone and he reports that she did not know how to use the phone. The patient reports that he irritates her because he gets angry with her when she does not do things as fast as he wants her to do them. Related Data Home Medications ?Medication ?Instructions ?Recorded ?Confirmed alprazolam 1 mg tablet 1 mg PO .QHS 02/10/25 02/10/25 atorvastatin 20 mg tablet 20 mg PO DAILY 02/10/25 02/10/25 bupropion HCl 300 mg 24 hr tablet, 300 mg PO QAM 02/10/25 02/10/25 extended release fluoxetine 20 mg capsule 60 mg PO DAILY 02/10/25 02/10/25 losartan 50 mg tablet 50 mg PO DAILY 02/10/25 02/10/25 pantoprazole 40 mg tablet,delayed 40 mg PO DAILY 02/10/25 02/10/25 release trazodone 100 mg tablet 100 mg PO .QHS 02/10/25 02/10/25 Allergies Allergy/AdvReac Type Severity Reaction Status Date / Time Penicillins AdvReac Severe syncope Verified 02/10/25 20:42 Opioid HPI Opioid Management Most Recent Opioid Data: Last Pain Scale 10 02/07/25, 23:54 Last MAR Pain Assessment 02/07/25, 23:54 Review of Systems ROS Narrative 10 Systems were reviewed, and unless noted in the HPI, all other systems are reviewed, unremarkable, or noncontributory. [facility] Social History Little interest or pleasure in doing things: not at all Feeling down, depressed, or hopeless: not at all Exam Narrative Exam Narrative: Prior to examining the patient, I have washed with hospital approved and provided Antiseptic Hand Room Designer and have also applied gloves.? Prior to touching the patient, I asked for consent to examine the patient.? General: Alert and oriented, well nourished, mild distress. Eye: PERRL, EOMI, normal conjunctiva. HENT: Normocephalic, normal hearing, dry oral mucosa, no scleral icterus Neck: Supple, non-tender, no carotid bruits, no JVD, no lymphadenopathy. Lungs: Clear to auscultation and percussion, non-labored respiration. Heart: Normal rate, regular rhythm, no murmur, gallop or edema. Abdomen: Soft, non-tender, non-distended, normal bowel sounds, no masses. Musculoskeletal: Normal range of motion and strength, no tenderness or swelling. Skin: Skin is warm, dry and pink, no rashes or lesions. Neurologic: Awake, alert, and oriented X3, CN II-XII intact. Psychiatric: Cooperative, appropriate mood and affect.? Following the conclusion of the examination, I have washed my hands thoroughly after removing examination gloves. Constitutional Vital Signs, click to edit/add: Last Vital Signs Temp 98 F 02/10/25 20:33 Pulse 72 02/10/25 22:15 Resp 18 02/10/25 22:15 BP 133/80 02/11/25 00:31 Pulse Ox 94 L 02/11/25 00:40 O2 Del Method Room Air 02/10/25 20:33 Course Course Hospital Course: Patient's potassium was found to be low at 3.3. She was able to drink 50 mill equivalents by mouth. Patient was given a lower liter normal saline bolus due to her lactic acidosis. And this did markedly improve her lactic acid. Patient felt great after the administration of the fluids. She appears nontoxic and in no acute distress and I feel safe to go home. Reevaluation(s) Reevaluation #2: I went in and reassessed the patient. She is sitting up reading. She appears nontoxic and in no acute distress. She really would like to go home. She no longer feels dizzy or lightheaded. Patient was able to tolerate her potassium. And at this time she has had stable vital signs and otherwise looks unremarkable. She will return if her symptoms worsen or change. She is going home with her son at this time. Time: 00:42 Vital Signs Vital signs: Vital Signs Temperature 98 F 02/10/25 20:33 Pulse Rate 74 02/10/25 20:33 Respiratory Rate 18 02/10/25 20:33 Blood Pressure 140/85 02/10/25 20:33 Pulse Oximetry 93 L 02/10/25 20:33 Oxygen Delivery Method Room Air 02/10/25 20:33 Temperature 98 F 02/10/25 20:33 Pulse Rate 72 02/10/25 22:15 Respiratory Rate 18 02/10/25 22:15 Blood Pressure 133/80 02/11/25 00:31 Pulse Oximetry 94 L 02/11/25 00:40 Oxygen Delivery Method Room Air 02/10/25 20:33 Medical Decision Making Differential Diagnosis Differential Diagnosis: Anemia, sepsis, bowel obstruction, dehydration, electrolyte abnormality Medical Records Medical records reviewed: Yes I reviewed the patient's medical records Lab Data Lab results reviewed: Yes I reviewed the patient's lab results Labs: Lab Results 02/10/25 02/10/25 Range/Units 20:50 23:53 WBC 7.6 (4.0-11.0) 10^3/uL RBC 3.49 L (4.20-5.40) 10^6/uL Hgb 11.0 L (12.0-16.0) g/dL Hct 32.9 L (36.0-48.0) % MCV 94.3 (81.0-99.0) fL MCH 31.5 (26.7-34.0) pg MCHC 33.4 (29.9-35.2) g/dL RDW 14.1 (11.0-15.0) % Plt Count 292 (150-450) 10^3/uL MPV 10.5 (9.5-13.5) fL Neut % (Auto) 63.2 (43.0-75.0) % Lymph % (Auto) 22.7 (20.5-60.0) % [place] % (Auto) 9.6 (1.7-12.0) % Eos % (Auto) 3.4 (0.9-7.0) % Baso % (Auto) 0.7 (0.2-2.0) % Neut # (Auto) 4.8 (1.4-6.5) 10^3/uL Lymph # (Auto) 1.7 (1.2-3.8) 10^3/uL [place] # (Auto) 0.7 (0.3-0.8) 10^3/uL Eos # (Auto) 0.3 (0.0-0.7) 10^3/uL Baso # (Auto) 0.1 (0.0-0.1) 10^3/uL Abs Immat Gran (auto) 0.03 (0.00-0.03) 10^3/uL Imm/Tot Granulo (auto) 0.4 (0.0-0.5) % Sodium 146 H (136-145) mmol/L Potassium 3.3 L (3.5-5.1) mmol/L Chloride 106 (98-107) mmol/L Carbon Dioxide 25.6 (21.0-32.0) mmol/L Anion Gap 17.7 BUN 16.0 (7.0-18.0) mg/dL Creatinine 1.07 H (0.55-1.02) mg/dL Est GFR ( Amer) 60 (>=60 mL/min/1.73m^2) Est GFR (Non-Af Amer) 49 L (>=60 mL/min/1.73m^2) BUN/Creatinine Ratio 15.0 Glucose 120 H (74-106) mg/dL Lactate 2.7 H* 2.0 (0.4-2.0) mmol/L Calcium 9.6 (8.5-10.1) mg/dL Discharge Plan Discharge Chief Complaint: Recheck/Abnormal Lab/Rx Clinical Impression: Blood pressure check, Dehydration, Hypokalemia Patient Disposition: Home, Self-Care Time of Disposition Decision: 00:45 Condition: Good Mode of Transportation: Private Vehicle Prescriptions / Home Meds: No Action alprazolam 1 mg tablet 1 mg PO .QHS atorvastatin 20 mg tablet 20 mg PO DAILY bupropion HCl 300 mg tablet extended release 24 hr 300 mg PO QAM fluoxetine 20 mg capsule 60 mg PO DAILY losartan 50 mg tablet 50 mg PO DAILY pantoprazole 40 mg tablet,delayed release (DR/EC) 40 mg PO DAILY trazodone 100 mg tablet 100 mg PO .QHS Print Language: Libyan Instructions: Dehydration (ED), Hypokalemia (ED) Additional Instructions: Thank you for trusting me with your care today. I hope that you continue to get better. If your symptoms worsen or change please do not hesitate to return to the emergency department for further evaluation and treatment. This is especially important if you develop a fever or unstable vital signs. Please come back if you develop any symptoms just like you did today. Referrals: Deepika Larose [employer]IVER [Primary Care Provider] - 1 week Discharge Date/Time: 02/11/25 00:55
--- NOTE | 2025-02-10 21:09 | PC.NURSE ---
pt had gotten a low reading for bp at home -- 90/79. asymptomatic. recently D/C'd from [facility] for a splenic tear that required no surgical tx.
--- NOTE | 2025-02-10 21:15 | PC.NURSE ---
this patient's son brought this patient in because of unable to remember certain things and her recent discharge from a hospital. this patient voices no complaints or needs and shows no signs of distress. this patient and her son informed of the plan of care for this patient, blood draw
--- OUTSIDE RECORDS SUMMARY | 2025-02-10 21:24 | XMS_ITS | Clinical Summary ---
Author Organization [facility] Address [address] [place] [address] Care Team Providers Care Data Steward Name Role Phone Unavailable Primary Care Provider Unavailabl e Source Comments The following information is NOT included in Care Everywhere downloads:Psychiatric notes, ECG results, Cardiac Rehab notes, Pulmonary Function notes, data from SmartForms (includes but not limited toPregnancy data,audiograms, eye exams, pre-surgical evaluation notes, well-child exam data).[facility] Active Problems Problem Noted Date Diagnosed Date Capsular tears to spleen, initial encounter 01/18 Encounters Date Type Department Care Team Description 02/08/2025 3:25 AM EDT - 02/09/2025 5:52 PM EDT Hospital Encounter [place] [id number] Ang Pagan MD Jain, Gary, MD Capsular tears to spleen, initial encounter (Primary Dx); Left lower quadrant abdominal pain; Hemoperitoneum Discharge Disposition: Discharge to Home 02/08/2025 Travel from Last 3 Months Social History Tobacco Use Types Packs/Day Years Used Date Smoking Tobacco: Never Assessed [facility] Utilities Answer Date Recorded In the past 12 months has [employer] electric, gas, oil, or water company threatened [...] on file Sexual Orientation Not on file Last Filed Vital Signs Vital Sign Reading [...] Mass Index 26.18 02/08/2025 7:00 AM EDT Plan of Treatment Health Maintenance Due Date Last Done Comments Tdap Booster 02/04/1962 Hepatitis A (HAV) Vaccine (optional start 19+ years) 0 02/04/1963 Pneumococcal Vaccine(s) (50+ yrs) (1 of 1 - PCV) 02/04 Shingles (RZV) Vaccine (1 of 2) 02/04/1994 Hepatitis B (HBV) Vaccine (optional start 60+ years) 0 2004 Bone Densitometry 02/04/2009 RSV vaccine (adult) (1 - 1-dose 75+ series) 02/04/2019 COVID-19 Vaccine (1 - season) 2024 Welcome to Medicare Visit (G0402) 08/17/2024 Influenza Vaccine (#1) 2025 Pap Smear Discontinued Procedures Procedure Name Priority Date/Time Associated Diagnosis Comments COMPLETE BLOOD COUNT Routine 02/09/2025 2:10 PM EDT COMPLETE BLOOD COUNT STAT 02/09/2025 1:53 AM EDT PHOSPHORUS STAT 02/09/2025 1:37 AM EDT MAGNESIUM STAT 02/09/2025 1:37 AM EDT BASIC METABOLIC PANEL STAT 02/09/2025 1:37 AM EDT COMPLETE BLOOD [...] IMAGE IMPORT STAT 02/08/2025 4:31 AM EDT from Last 3 Months Results * (ABNORMAL) COMPLETE BLOOD COUNT (02/09/2025 2:10 PM EDT) WBC 7.2 4.5 - 11.5 K/uL 02/09/2025 2:24 PM EDT [facility] RBC 3.54(L) 4.00 - 5.20 M/uL 02/09/2025 2:24 PM EDT [facility] Hemoglobin 11.2(L) 12.0 - 15.0 g/dL 02/09/2025 2:24 PM EDT [facility] Hematocrit 31.8(L) 36.0 - 46.0 % 02/09/2025 2:24 PM EDT [facility] MCV 90 80 - 100 fL 02/09/2025 2:24 PM EDT [facility] MCH 31.6 26.0 - 34.0 pg 02/09/2025 2:24 PM EDT [facility] MCHC 35.1 32.0 - 35.9 g/dL 02/09/2025 2:24 PM EDT [facility] Platelet 256 150 - 400 K/uL 02/09/2025 2:24 PM EDT [facility] RDW-CV 14.4 11.5 - 14.5 % 02/09/2025 2:24 PM EDT [facility] MPV 8.0 7.5 - 11.2 fL 02/09/2025 2:24 PM EDT [facility] Blood BLOOD SPECIMEN / Unknown Venipuncture / Unknown 02/09/2025 2:10 PM EDT 02/09/2025 2:17 PM EDT us Babar Azul MD 98 GENERAL LAB Final Resu lt [facility] [address] [place], [place] * (ABNORMAL) COMPLETE BLOOD COUNT (02/09/2025 1:53 AM EDT) WBC 5.5 4.5 - 11.5 K/uL 02/09/2025 2:23 AM EDT S [facility] RBC 3.17(L) 4.00 - 5.20 M/uL 02/09/2025 2:23 AM EDT S [facility] Hemoglobin 10.0(L) 12.0 - 15.0 g/dL 02/09/2025 2:23 AM EDT [facility] Hematocrit 29.6(L) 36.0 - 46.0 % 02/09/2025 2:23 AM EDT [facility] MCV 93 80 - 100 fL 02/09/2025 2:23 AM EDT [facility] MCH 31.6 26.0 - 34.0 pg 02/09/2025 2:23 AM EDT [facility] MCHC 33.8 32.0 - 35.9 g/dL 02/09/2025 2:23 AM EDT [facility] Platelet 219 150 - 400 K/uL 02/09/2025 2:23 AM EDT [facility] RDW-CV 14.1 11.5 - 14.5 % 02/09/2025 2:23 AM EDT [facility] MPV 7.9 7.5 - 11.2 fL 02/09/2025 2:23 AM EDT [facility] Blood BLOOD SPECIMEN / Unknown Venipuncture / Unknown 02/09/2025 1:53 AM EDT 02/09/2025 2:17 AM EDT us Gustavo Caruso MD 98 GENERAL LAB Final Result [facility] [address] [place], [place] * (ABNORMAL) BASIC METABOLIC PANEL (02/09/2025 1:37 AM EDT) Glucose 92 74 - 109 mg/dL 02/09/2025 2:06 AM EDT S [facility] Sodium 139 136 - 145 mmol/L 02/09/2025 2:06 AM EDT [facility] Potassium 3.6 3.5 - 5.0 mmol/L 02/09/2025 2:06 AM EDT [facility] Carbon Dioxide 22 21 - 31 mmol/L 02/09/2025 2:06 AM EDT [facility] Chloride 108(H) 98 - 107 mmol/L 02/09/2025 2:06 AM EDT [facility] Blood Urea Nitrogen 10 7 - 25 mg/dL 02/09/2025 2:06 AM EDT [facility] Creatinine 0.72 0.60 - 1.20 mg/dL 02/09/2025 2:06 AM EDT [facility] Calcium 9.0 8.6 - 10.3 mg/dL 02/09/2025 2:06 AM EDT [facility] Anion Gap 13 10 - 20 02/09/2025 2:06 AM EDT [facility] Estimated GFR (CKD-EPI) 84 >=60 mL/min/1. 73sqm 02/09/2025 2:06 AM EDT [facility] Comment: 2020 CKD EPI Equation [...] Inclusion of Race in Diagnosing Kidney Disease. [place] Journal of Kidney Diseases 202;79(2):268- 88.e1. 2. N Engl J Med 2021 Vol. 385 Issue 19 Pages [id number] Blood BLOOD SPECIMEN / Unknown Venipuncture / Unknown 02/09/2025 1:37 AM EDT 02/09/2025 1:41 AM EDT us Gustavo Caruso MD 98 GENERAL LAB Final Result [facility] [address] [place] [address] * PHOSPHORUS (02/09/2025 1:37 AM EDT) Pathologist [facility] Phosphorus, Serum 2.8 2.5 - 5.0 mg/dL 02/09/2025 2:06 AM EDT [facility] Blood BLOOD SPECIMEN / Unknown Venipuncture / Unknown 02/09/2025 1:37 AM EDT 02/09/2025 1:41 AM EDT us Gustavo Caruso MD 98 GENERAL LAB Final Result Performing Organization Address [facility]/ZIP Co de Phone Number [facility] [address] [place] [phone] * MAGNESIUM (02/09/2025 1:37 AM EDT) Pathologist [facility] Magnesium 1.9 1.9 - 2.7 mg/dL 02/09/2025 2:06 AM EDT [facility] Blood BLOOD SPECIMEN / Unknown Venipuncture / Unknown 02/09/2025 1:37 AM EDT 02/09/2025 1:41 AM EDT Gustavo Caruso MD 98 GENERAL LAB Final Result Performing Organization Address [facility] de Phone Number [facility] [address] [place] [phone] * (ABNORMAL) COMPLETE BLOOD COUNT (02/08/2025 7:18 PM EDT) [facility] WBC 6.8 4.5 - 11.5 K/uL 02/08/2025 7:46 PM EDT [facility] RBC 3.46(L) 4.00 - 5.20 M/uL 02/08/2025 7:46 PM EDT S [facility] Hemoglobin 10.9(L) 12.0 - 15.0 g/dL 02/08/2025 7:46 PM EDT [facility] Hematocrit 31.6(L) 36.0 - 46.0 % 02/08/2025 7:46 PM EDT [facility] MCV 91 80 - 100 fL 02/08/2025 7:46 PM EDT [facility] MCH 31.6 26.0 - 34.0 pg 02/08/2025 7:46 PM EDT [facility] MCHC 34.6 32.0 - 35.9 g/dL 02/08/2025 7:46 PM EDT [facility] Platelet 244 150 - 400 K/uL 02/08/2025 7:46 PM EDT [facility] RDW-CV 14.3 11.5 - 14.5 % 02/08/2025 7:46 PM EDT [facility] MPV 8.3 7.5 - 11.2 fL 02/08/2025 7:46 PM EDT [facility] Blood BLOOD SPECIMEN / Unknown Venipuncture / Unknown 02/08/2025 7:18 PM EDT 02/08/2025 7:41 PM EDT us Gustavo Caruso MD 98 GENERAL LAB Final Result Performing Organization Address City/[facility]/ZIP Co de Phone Number [facility] [address] [place] [phone] * GOLD TOP - SST TUBE, BLOOD (02/08/2025 6:48 PM EDT) Extra Tube Done 02/08/2025 9:01 PM EDT [facility] Blood BLOOD SPECIMEN / Unknown Venipuncture / Unknown 02/08/2025 6:48 PM EDT 02/08/2025 7:12 PM EDT Anthony Pierce MD EC LAB ORDER ONLY Final Result Performing Organization Address City/[facility]/ZIP Co de Phone Number [facility] [address] [place] [address] * (ABNORMAL) COMPLETE BLOOD COUNT (02/08/2025 1:13 PM EDT) WBC 6.9 4.5 - 11.5 K/uL 02/08/2025 1:22 PM EDT [facility] RBC 3.64(L) 4.00 - 5.20 M/uL 02/08/2025 1:22 PM EDT [facility] Hemoglobin 11.3(L) 12.0 - 15.0 g/dL 02/08/2025 1:22 PM EDT [facility] Hematocrit 33.2(L) 36.0 - 46.0 % 02/08/2025 1:22 PM EDT [facility] MCV 91 80 - 100 fL 02/08/2025 1:22 PM EDT [facility] MCH 31.0 26.0 - 34.0 pg 02/08/2025 1:22 PM EDT [facility] MCHC 33.9 32.0 - 35.9 g/dL 02/08/2025 1:22 PM EDT [facility] Platelet 272 150 - 400 K/uL 02/08/2025 1:22 PM EDT [facility] RDW-CV 14.4 11.5 - 14.5 % 02/08/2025 1:22 PM EDT [facility] MPV 7.8 7.5 - 11.2 fL 02/08/2025 1:22 PM EDT [facility] Blood BLOOD SPECIMEN / Unknown Venipuncture / Unknown 02/08/2025 1:13 PM EDT 02/08/2025 1:17 PM EDT Gustavo Caruso MD GENERAL LAB Final Result [facility] [address] [place] [address] * CONFIRMATION ABO/RH (02/08/2025 7:32 AM EDT) ABO Rh Type A Negative 02/08/2025 9:22 AM EDT [facility] Specimen Expiration Date [id number] 02/08/2025 9:22 AM EDT [facility] ABO Rh/Dia/TXRX History A Negative 02/08/2025 9:22 AM EDT [facility] Blood BLOOD SPECIMEN / Unknown Venipuncture / Unknown 02/08/2025 7:32 AM EDT 02/08/2025 7:32 AM EDT Gustavo Caruso MD BLOOD BANK Final Result [facility] [address] [place] [address] * TYPE AND SCREEN (02/08/2025 7:22 AM EDT) ABO Rh Type A Negative 02/08/2025 9:21 AM EDT [facility] Ab Screen Interp Negative 02/08/2025 9:21 AM EDT [facility] Specimen Expiration Date [id number] 02/08/2025 9:21 AM EDT [facility] ABO Rh/Dia/TXRX History No Previous Results 02/08/2025 9:21 AM EDT [facility] Blood BLOOD SPECIMEN / Unknown Venipuncture / Unknown 02/08/2025 7:22 AM EDT 02/08/2025 7:30 AM EDT Gustavo Caruso MD BLOOD BANK Final Result Performing Organization Address [facility]/ZIP Co de Phone Number [facility] [address] [place] [phone] * (ABNORMAL) PROTHROMBIN TIME AND INR (02/08/2025 5:01 AM EDT) Protime 12.9 9.7 - 12.9 sec 02/08/2025 5:45 AM EDT [facility] INR 1.15(H) 0.90 - 1.10 02/08/2025 5:45 AM EDT [facility] Blood BLOOD SPECIMEN / Unknown Venipuncture / Unknown 02/08/2025 5:01 AM EDT 02/08/2025 5:21 AM EDT Gustavo Caruso MD 98 GENERAL LAB Final Result Performing Organization Address City/[facility]/ZIP Co de Phone Number [facility] [address] [place] [phone] * LACTIC ACID (02/08/2025 5:01 AM EDT) Lactate 0.8 0.5 - 1.6 mmol/L 02/08/2025 5:17 AM EDT [facility] Blood BLOOD SPECIMEN / Unknown Venipuncture / Unknown 02/08/2025 5:01 AM EDT 02/08/2025 5:12 AM EDT Narrative [facility] - 02/08/2025 5:17 AM EDT This test was developed, and its performance characteristics determined by the Department of Pathology of [facility]. It has not been cleared or approved by the FDA. This test is used for clinical purposes only. Gustavo Caruso MD 98 GENERAL LAB Final Result Performing Organization Address [facility] de Phone Number [facility] [address] [place] [phone] * (ABNORMAL) HEPATIC FUNCTION PANEL (02/08/2025 5:00 AM EDT) Albumin 3.9 3.5 - 5.7 g/dL 02/08/2025 5:54 AM EDT [facility] Bilirubin, Direct 0.11 0.03 - 0.18 mg/dL 02/08/2025 5:54 AM EDT [facility] Bilirubin, Total 0.6 0.3 - 1.0 mg/dL 02/08/2025 5:54 AM EDT [facility] Alkaline Phosphatase 63 34 - 104 IU/L 02/08/2025 5:54 AM EDT [facility] ALT (SGPT) 21 7 - 52 IU/L 02/08/2025 5:54 AM EDT [facility] AST (SGOT) 26 13 - 39 IU/L 02/08/2025 5:54 AM EDT [facility] Protein, Total 5.9(L) 6.0 - 8.3 g/dL 02/08/2025 5:54 AM EDT [facility] Blood BLOOD SPECIMEN / Unknown Venipuncture / Unknown 02/08/2025 5:00 AM EDT 02/08/2025 5:21 AM EDT Gustavo Caruso MD 98 GENERAL LAB Final Result Performing Organization Address [facility] de Phone Number [facility] [address] [place] [phone] * (ABNORMAL) BASIC METABOLIC PANEL (02/08/2025 5:00 AM EDT) Glucose 113(H) 74 - 109 mg/dL 02/08/2025 5:54 AM EDT [facility] Sodium 140 136 - 145 mmol/L 02/08/2025 5:54 AM EDT [facility] Potassium 3.9 3.5 - 5.0 mmol/L 02/08/2025 5:54 AM EDT [facility] Carbon Dioxide 25 21 - 31 mmol/L 02/08/2025 5:54 AM EDT [facility] Chloride 107 98 - 107 mmol/L 02/08/2025 5:54 AM EDT [facility] Blood Urea Nitrogen 16 7 - 25 mg/dL 02/08/2025 5:54 AM EDT [facility] Creatinine 0.75 0.60 - 1.20 mg/dL 02/08/2025 5:54 AM EDT [facility] Calcium 9.2 8.6 - 10.3 mg/dL 02/08/2025 5:54 AM EDT [facility] Anion Gap 12 10 - 20 02/08/2025 5:54 AM EDT [facility] Estimated GFR (CKD-EPI) 80 >=60 mL/min/1. 73sqm 02/08/2025 5:54 AM EDT [facility] Comment: 2020 CKD EPI Equation [...] Inclusion of Race in Diagnosing Kidney Disease. [place] Journal of Kidney Diseases 2022;79(2):268- 88.e1. 2. N Engl J Med 2021 Vol. 385 Issue 19 Pages [id number] Blood BLOOD SPECIMEN / Unknown Venipuncture / Unknown 02/08/2025 5:00 AM EDT 02/08/2025 5:21 AM EDT Gustavo Caruso MD 98 GENERAL LAB Final Result [facility] [address] [place], [place] * (ABNORMAL) COMPLETE BLOOD COUNT (02/08/2025 5:00 AM EDT) WBC 8.8 4.5 - 11.5 K/uL 02/08/2025 5:26 AM EDT [facility] RBC 3.67(L) 4.00 - 5.20 M/uL 02/08/2025 5:26 AM EDT [facility] Hemoglobin 11.4(L) 12.0 - 15.0 g/dL 02/08/2025 5:26 AM EDT [facility] Hematocrit 34.4(L) 36.0 - 46.0 % 02/08/2025 5:26 AM EDT [facility] MCV 94 80 - 100 fL 02/08/2025 5:26 AM EDT [facility] MCH 31.0 26.0 - 34.0 pg 02/08/2025 5:26 AM EDT [facility] MCHC 33.1 32.0 - 35.9 g/dL 02/08/2025 5:26 AM EDT [facility] Platelet 263 150 - 400 K/uL 02/08/2025 5:26 AM EDT [facility] RDW-CV 14.4 11.5 - 14.5 % 02/08/2025 5:26 AM EDT [facility] MPV 8.1 7.5 - 11.2 fL 02/08/2025 5:26 AM EDT [facility] Blood BLOOD SPECIMEN / Unknown Venipuncture / Unknown 02/08/2025 5:00 AM EDT 02/08/2025 5:21 AM EDT Gustavo Caruso MD 98 GENERAL LAB Final Result Performing Organization Address City/[facility]/ZIP Co de Phone Number [facility] [address], [place] * CT BODY IMAGE IMPORT(TERESA) (02/08/2025 4:31 AM EDT) us Kait Martínez MD EC CT SCAN Final Result * XRAY CHEST IMAGE IMPORT(TERESA) (02/08/2025 4:31 AM EDT) us Kait Martínez MD EC DIAGNOSTIC X-RAY Final Result from Last 3 Months [place] [phone] Advance Directives * Full Code (Latest Code Status on File) Date Activated Date Inactivated Comments 02/08/2025 6:02 AM 02/09/2025 7:57 PM Question Answer Comments Documentation of decision pr ocess for this code status: Patient and surrogate unable or unavailable to discuss. There is no previous documentation of code status. Defaulting to Full Code
--- OUTSIDE RECORDS SUMMARY | 2025-02-10 21:24 | XMS_ITS | Encounter Summary ---
Author Organization [facility] Address [address] [facility] [place] [address] Care Team Providers Care Cfo Name Role Phone Unavailable Primary Care Provider Unavailabl e Encounter Details Date Type Department Care Team (Latest Contact Info) Description 02/08/2025 Travel Social History Tobacco Use Types Packs/Day Years Used Date Smoking Tobacco: Never Assessed [facility] Utilities Answer Date Recorded In the [...] rded In the past 12 months has e electric, gas, oil, or water company threatened to shut off services in your home? No 02/08/2025 Comments Unknown Sex and Gender Information Value Date Recorded Sex Assigned at Not on file Legal Sex Female 11:42 PM EDT Gender Identity Not on file Sexual Orientation Not on file documented as of this encounter Plan of Treatment Not on file documented as of this encounter Visit Diagnoses Not on filedocumented in this encounter
[2025-02-10 21:30] LABS: Hematocrit 32.9 % (36.0-48.0); Hemoglobin 11.0 g/dL (12.0-16.0); Immature Granulocytes Abs Auto 0.03 10^3/uL (0.00-0.03); Immature Granulocytes Pct Auto 0.4 % (0.0-0.5); Lymphocytes Absolute Auto 1.7 10^3/uL (1.2-3.8); Mean Corpuscular HGB Conc 33.4 g/dL (29.9-35.2); Mean Corpuscular Hemoglobin 31.5 pg (26.7-34.0); Mean Corpuscular Volume 94.3 fL (81.0-99.0); Platelet Count 292 10^3/uL (150-450); Red Blood Count 3.49 10^6/uL (4.20-5.40); White Blood Count 7.6 10^3/uL (4.0-11.0)
[2025-02-10 21:38] LABS: Anion Gap 17.7; Blood Urea Nitrogen 16.0 mg/dL (7.0-18.0); Calcium 9.6 mg/dL (8.5-10.1); Carbon Dioxide 25.6 mmol/L (21.0-32.0); Chloride 106 mmol/L (98-107); Estimated GFR (African America 60 (>=60 mL/min/1.73m^2); Estimated GFR (Non-African Ame 49 (>=60 mL/min/1.73m^2); Glucose 120 mg/dL (74-106); Potassium 3.3 mmol/L (3.5-5.1); Sodium 146 mmol/L (136-145)
[2025-02-10 21:49] LABS: Lactate/Lactic Acid 2.7 mmol/L (0.4-2.0)
[2025-02-10] MEDS: 0.9 % SODIUM CHLORIDE 1,000 ML 1000 ML IV (22:10)
[2025-02-10] MEDS: POTASSIUM BICARBONATE/CIT 25 MEQ TABLET EFF 50 MEQ PO (22:10)
[2025-02-11] VITALS: BP 132/80; O2SAT 95
[2025-02-11 00:10] VITALS: O2SAT 96
[2025-02-11 00:20] VITALS: O2SAT 96
[2025-02-11 00:22] LABS: Lactate/Lactic Acid 2.0 mmol/L (0.4-2.0)
[2025-02-11 00:30] VITALS: O2SAT 95
[2025-02-11 00:31] VITALS: BP 133/80; O2SAT 94
[2025-02-11 00:40] VITALS: O2SAT 94
--- NOTE | 2025-02-11 00:56 | PC.NURSE ---
i gave this patient verbal and written discharge orders and she voices yes to understanding these. at time of discharge this patient nor her son voices no concerns, needs and this patient shows no signs of distress
== END 2025-02-11 00:55 | disposition home or self-care (01) ==
PROVIDERS: Emergency Provider Emergency Medicine; PCP Nurse Practitioner Family
DX: E86.0 Dehydration (principal); E87.6 Hypokalemia; Z01.30 Encounter for examination of blood pressure without abnormal findings
CPT/HCPCS: 36415; 80048; 83605; 85025; 99283

== ENCOUNTER 2025-03-24 12:46 | Outpatient (OUT) | payer MEDICARE, SELFPAY ==
--- NOTE | 2025-03-24 12:53 | XR_ITS ---
[facility] [place] [id number] Patient Name: MARY CARMEN ALCARAZ MRN: [id number] date: 1945 Sex: F Assigned Patient Location: [facility] Current Patient Location: [facility] Accession/Order Number: [id number] Exam Date: 03/24/2025 12:55 Report Date: 03/24/2025 13:33 At the request of: PETE TORRES NP Procedure: XR thoracic spine 3V THORACIC SPINE - - 3 views CLINICAL HISTORY: Pain in thoracic spine COMPARISON: None FINDINGS: Vertebral body heights appear maintained. Scattered endplate degenerative changes. Pedicles appear intact. XR/XR thoracic spine 3V IMPRESSION: DEGENERATIVE CHANGES INVOLVING THE THORACIC SPINE WITHOUT ACUTE BONY PROCESS. Impression dictated by: Ian Beavers Jr., D.O. 03/24/2025 1:33 PM Dictation Location: [place] [address] Electronically authenticated by: [id number] Y Date: 03/24/2025 13:33
== END 2025-03-24 12:47 | disposition home or self-care (01) ==
PROVIDERS: PCP Nurse Practitioner Family; Visit Provider Nurse Practitioner Family
DX: M54.6 Pain in thoracic spine (principal)
CPT/HCPCS: 72072

== ENCOUNTER 2025-04-10 19:12 | Emergency (ER) | payer MEDICARE, SELFPAY ==
[2025-04-10 19:17] VITALS: BP 155/99; PULSE 78; TEMP 36.9; O2SAT 98; BMI 26.5
--- OUTSIDE RECORDS SUMMARY | 2025-04-10 19:18 | XMS_ITS | Clinical Summary ---
Author Organization [facility] Address [address] [place] [address] Care Team Providers Care Child Support Officer Name Role Phone Unavailable Primary Care Provider Unavailabl e Source Comments The following information is NOT included in Care Everywhere downloads:Psychiatric notes, ECG results, Cardiac Rehab notes, Pulmonary Function notes, data from SmartForms (includes but not limited toPregnancy data,audiograms, eye exams, pre-surgical evaluation notes, well-child exam data).[facility] Active Problems ProblemNoted DateDiagnosed DateCapsular tears to spleen, initial encounter 02/08/2025 Encounters DateTypeDepartmentCare FvtlBnkkwrxrisi07/23/2025 3:25 AM EDT - 02/09/2025 5:52 PM EDTHospital Encounter [id number] Ang Pagan MD Jain, Gary, MD Capsular tears to spleen, initial encounter (Primary Dx); Left lower quadrant abdominal pain; Hemoperitoneum Discharge Disposition: Discharge to Home02/08/2025Travelfrom Last 3 Months Social History Tobacco UseTypesPacks/DayYears UsedDateSmoking Tobacco: [facility] UtilitiesAnswerDate RecordedIn the past 12 months has the electric, gas, oil, or water company threatened to shut off services in your home?No02/08/2025 Humiliation, Afraid, Rape, and Kick questionnaireAnswerDate RecordedFear of Current or Ex-PartnerNot on file02/08/2025Within the last year, have you been humiliated or emotionally abused in other ways by your partner or ex-partner?No 02/08/2025Physically AbusedNot on file02/08/2025Sexually AbusedNot on file 02/08/2025Hunger Vital SignAnswerDate RecordedWithin the past 12 months, you worried that your food would run out before you got the money to buymore.Never true02/08/2025Ran Out of Food in the Last YearNot on file02/08/2025PRAPARE - TransportationAnswerDate RecordedIn the past 12 months, has lack of transportation kept you from medical appointments or from getting medications?No 02/08/2025Lack of Transportation (Non-Medical)Not on file02/08/2025Housing Stability Vital SignAnswerDate RecordedIn the last 12 months, was there a time when you were not able to pay the mortgage or rent on time?No02/08/2025Number of Times Moved in the Last YearNot on file02/08/2025Homeless in the Last YearNot on file02/08/2025Utilities - HistoricalAnswerDate RecordedIn the past 12 months has the [employer], gas, oil, or water [employer] threatened to shut off services in your home?No02/08/2025CommentsUnknownSex and Gender InformationValueDate RecordedSex Assigned at BirthNot on fileLegal SweHyytcq80/22/2025 11:42 PM EDT Gender IdentityNot on fileSexual OrientationNot on file Last Filed Vital Signs Vital SignReadingTime TakenCommentsBlood Foexnswk425/9008 2:10 PM EDT Zzczk4440/24/2025 2:10 PM QDKZrbwtgjwqqe93.2 ??C (99 ??F)02/09/2025 2:10 PM EDT Respiratory Kjet668702/09/2025 2:10 PM EDTOxygen Vszvilcayv23%02/09/2025 2:10 PM EDTInhaled Oxygen Concentration--Fubepl87 kg (147 lb 12.8 oz)02/08/2025 7:00 AM KUYXqlyuk438 cm (5' 3 )02/08/2025 7:00 AM EDTBody Mass Index26.18002/08/2025 7:00 AM EDT Plan of Treatment Health MaintenanceDue DateLast DoneCommentsTdap Vuujzzs3302/04/1962Hepatitis A (HAV) Vaccine (optional start 19+ years)02/04/1963Pneumococcal Vaccine(s) (50+ yrs) (1 of 1 - PCV)02/04/1994Shingles (RZV) Vaccine (1 of 2)02/04/1994Hepatitis B (HBV) Vaccine (optional start 60+ years)2004Bone Ojvrehmpvsdo27/19/2009 RSV vaccine (adult) (1 - 1-dose 75+ series)02/04/2019Welcome to Medicare Visit (G0402)08/17/2024OVID-19 Vaccine ( - 2024- season)2025Influenza Vaccine (#1)2025Pap SmearDiscontinued Procedures Procedure NamePriorityDate/TimeAssociated DiagnosisCommentsCOMPLETE BLOOD COUNT Zrojqyf3502/09/2025 2:10 PM EDT COMPLETE BLOOD UAPWRZNPP32/24/2025 1:53 AM EDT NENFHWUGWWPUFS35/24/2025 1:37 AM EDT IYJLCHZXIZADQ63/24/2025 1:37 AM EDT BASIC METABOLIC ABYUYPJLP87/24/2025 1:37 AM EDT COMPLETE BLOOD PPDSURHKZ40/23/2025 7:18 PM EDT GOLD TOP - SST TUBE, FSDWYDpkhzeo37/23/2025 6:48 PM EDT COMPLETE BLOOD OJHRRAJGR28/23/2025 1:13 PM EDT CONFIRMATION ABO/DPCLVT5502/08/2025 7:32 AM EDT TYPE AND QNKLEFDZTH82/23/2025 7:22 AM EDT PROTHROMBIN TIME AND HTUNWAD8102/08/2025 5:01 AM EDT LACTIC SQPPFTRS01/23/2025 5:01 AM EDT HC HEPATIC FUNCTION JFQCZKXOC55/23/2025 5:00 AM EDT BASIC METABOLIC WAKYVJSAO60/23/2025 5:00 AM EDT COMPLETE BLOOD FFFRKRONA80/23/2025 5:[address] BODY IMAGE KYSSSDIFYN30/23/2025 4:31 AM EDTXRAY CHEST IMAGE IMPORTSTAT 02/08/2025 4:31 AM EDTEKG 12 LEAD - YLNACSXEahqxig39/23/2025 3:44 AM EDT from Last 3 Months Results * (ABNORMAL) COMPLETE BLOOD COUNT (02/09/2025 2:10 PM EDT)ComponentValueRef RangeTest MethodAnalysis TimePerformed AtPathologist SignatureWBC7.24.5 - 11.5 K/uL02/09/2025 2:24 PM [facility] PATHOLOG[facility] LABORATORYRBC3.54(L)4.00 - 5.20 M/uL 02/09/2025 2:24 PM [facility] LBWDTIYYBPLjvafrilpo91.2(L)12.0 - 15.0 g/dL02/09/2025 2:24 PM [facility] QYDROUGDAHVimxsmdpsn00.8(L)36.0 - 46.0 %02/09/2025 2:24 PM [facility] MASQTGCSPYLAH4621 - 100 fL02/09/2025 2:24 PM [facility] YOMJTMPRNBPOH64.626.0 - 34.0 pg02/09/2025 2:24 PM [facility] XOHNUPCIFWYFUC34.132.0 - 35.9 g/dL02/09/2025 2:24 PM [facility] CRZZWAQQTLMhtzefwh772082 - 400 K/uL02/09/2025 2:24 PM [facility] PATH[facility] LABORATORYRDW-CV14.411.5 - 14.5 %02/09/2025 2:24 PM [facility] PATH[facility] LABORATORYMPV8.07.5 - 11.2 CA02/09/2025 2:24 PM [facility] Specimen (Source)Anatomical Location / LateralityCollection Method / Volume Collection TimeReceived TimeBloodBLOOD SPECIMEN / UnknownVenipuncture / Zmyrrye0602/09/2025 2:10 PM EDT02/09/2025 2:17 PM EDT Narrative Authorizing ProviderResult TypeResult StatusAlessandasuncion Azul MD98 GENERAL LAB Final ResultPerforming OrganizationAddressCity/State/ZIP CodePhone Number [facility] [address] [place] [address] * (ABNORMAL) COMPLETE BLOOD COUNT (02/09/2025 1:53 AM EDT)ComponentValueRef RangeTest MethodAnalysis TimePerformed AtPathologist SignatureWBC5.54.5 - 11.5 K/uL02/09/2025 2:23 AM [facility] PATHOLOG[facility] LABORATORYRBC3.17(L)4.00 - 5.20 M/uL 02/09/2025 2:23 AM [facility] YXATRFVRRDNnrvucbdad35.0(L)12.0 - 15.0 g/dL02/09/2025 2:23 AM [facility] XKRJRSPVESYdsvsfrzdu37.6(L)36.0 - 46.0 %02/09/2025 2:23 AM [facility] YNCKCQQRARFYC9383 - 100 fL02/09/2025 2:23 AM [facility] RBYBPMBBHZMOR59.626.0 - 34.0 pg02/09/2025 2:23 AM [facility] GNJHEBAQBWDIOB96.832.0 - 35.9 g/dL02/09/2025 2:23 AM [facility] JPMDIVYXSQUwjfaupu613820 - 400 K/uL02/09/2025 2:23 AM [facility] PATH[facility] LABORATORYRDW-CV14.111.5 - 14.5 %02/09/2025 2:23 AM [facility] LABORATORYMPV7.97.5 - 11.2 fL02/09/2025 2:23 AM [facility] Specimen (Source)Anatomical Location / LateralityCollection Method / Volume Collection TimeReceived TimeBloodBLOOD SPECIMEN / UnknownVenipuncture / Oyycqal7402/09/2025 1:53 AM EDT02/09/2025 2:17 AM EDT Narrative Authorizing ProviderResult TypeResult StatusGustavo Caruso MD98 GENERAL LABFinal ResultPerforming OrganizationAddressCity/State/ZIP CodePhone Number [facility] [address] [place] [address] * (ABNORMAL) BASIC METABOLIC PANEL (02/09/2025 1:37 AM EDT)ComponentValueRef RangeTest MethodAnalysis TimePerformed AtPathologist ApfxibsnpEcqseee6494 - 109 mg/dL02/09/2025 2:06 AM [facility] JNQDCICCOFVssiss208594 - 145 mmol/L02/09/2025 2:06 AM [facility] PATH[facility] LABORATORYPotassium3.63.5 - 5.0 mmol/L02/09/2025 2:06 AM [facility] PATHOLOG[facility] LABORATORYCarbon Ufpbhld1372 - 31 mmol/L02/09/2025 2:06 AM [facility] TZETIWSCJRApgmzuej678(H)98 - 107 mmol/L02/09/2025 2:06 AM [facility] PATHOLOGY LABORATORYBlood Urea Yazdtgag537 - 25 mg/dL02/09/2025 2:06 AM [facility] LABORATORYCreatinine0.720.60 - 1.20 mg/dL02/09/2025 2:06 AM [facility] LABORATORYCalcium9.08.6 - 10.3 mg/dL02/09/2025 2:06 AM [facility] PATH[facility] LABORATORYAnion Uio4969 - 20 02/09/2025 2:06 AM [facility] PATH[facility] LABORATORYEstimated GFR (CKD-EPI)84>=60 mL/min/1.39fpj8502/09/2025 2:06 AM [facility] PATHOLOGY LABORATORYComment: 2020 CKD EPI Equation using Creatinine without Race Comment: ??Estimated glomerular filtration rate (eGFR) is calculated without a race coefficient. Values should be interpreted in the context of the patient's full clinical presentation. Reference: 1. Phill C, Jose Roberto M, Bella LIRA, et al.. A Unifying Approach for GFR Estimation: Recommendations of the NKF-ASN Task Force on Reassessing the Inclusion of Race in Diagnosing Kidney Disease. AmericanJournal of Kidney Diseases 2021;79(2):268-88.e1. 2. N Engl J Med 1 Vol. 385 Issue 19 Pages 4049-4097 Specimen (Source)Anatomical Location / LateralityCollection Method / Volume Collection TimeReceived TimeBloodBLOOD SPECIMEN / UnknownVenipuncture / Unknown 02/09/2025 1:37 AM EDT02/09/2025 1:41 AM EDT Narrative Authorizing ProviderResult TypeResult Alicia SENIOR GENERAL LABFinal ResultPerforming OrganizationAddressCity/State/ZIP CodePhone Number [facility] [address] [place] [phone] * PHOSPHORUS (02/09/2025 1:37 AM EDT)ComponentValueRef RangeTest MethodAnalysis TimePerformed AtPathologist SignaturePhosphorus, Serum2.82.5 - 5.0 mg/dL 02/09/2025 2:06 [facility] PATHOLOGY LABORATORYSpecimen (Source)Anatomical Location / LateralityCollection Method / VolumeCollection TimeReceived Time BloodBLOOD SPECIMEN / UnknownVenipuncture / Ggxfmup4302/09/2025 1:37 AM EDT 02/09/2025 1:41 AM EDT Narrative Authorizing ProviderResult TypeResult Alicia SENIOR GENERAL LABFinal ResultPerforming OrganizationAddressCity/State/ZIP CodePhone Number [facility] [address] [place] [address] * MAGNESIUM (02/09/2025 1:37 AM EDT)ComponentValueRef RangeTest MethodAnalysis TimePerformed AtPathologist SignatureMagnesium1.91.9 - 2.7 mg/dL02/09/2025 2:06 AM [facility] PATH[facility] LABORATORYSpecimen (Source)Anatomical Location / LateralityCollection Method / VolumeCollection TimeReceived TimeBloodBLOOD SPECIMEN / UnknownVenipuncture / Opzxipc6602/09/2025 1:37 AM EDT02/09/2025 1:41 AM EDT Narrative Authorizing ProviderResult TypeResult Alicia SENIOR GENERAL LABFinal ResultPerforming OrganizationAddressCity/State/ZIP CodePhone Number [facility] [address] [place] [address] * (ABNORMAL) COMPLETE BLOOD COUNT (02/08/2025 7:18 PM EDT)ComponentValueRef RangeTest MethodAnalysis TimePerformed AtPathologist SignatureWBC6.84.5 - 11.5 K/uL02/08/2025 7:46 PM [facility] PATHOLOG[facility] LABORATORYRBC3.46(L)4.00 - 5.20 M/uL 02/08/2025 7:46 PM [facility] PSUHMBAIZOMtizkfiuwj31.9(L)12.0 - 15.0 g/dL02/08/2025 7:46 PM [facility] LJYUMLZNNDGrgstidkww11.6(L)36.0 - 46.0 %02/08/2025 7:46 PM [facility] WSBRNVYXKPKTU2139 - 100 fL02/08/2025 7:46 PM [facility] ZUASGGLXMIGOF94.626.0 - 34.0 pg02/08/2025 7:46 PM [facility] NVOLGPDDEJFAHD21.632.0 - 35.9 g/dL02/08/2025 7:46 PM [facility] NQKQRVMANXAfsbkemt011139 - 400 K/uL02/08/2025 7:46 PM [facility] PATH[facility] LABORATORYRDW-CV14.311.5 - 14.5 %02/08/2025 7:46 PM [facility] PATH[facility] LABORATORYMPV8.37.5 - 11.2 fL02/08/2025 7:46 PM [facility] Specimen (Source)Anatomical Location / LateralityCollection Method / Volume Collection TimeReceived TimeBloodBLOOD SPECIMEN / UnknownVenipuncture / Hevdzth0302/08/2025 7:18 PM EDT02/08/2025 7:41 PM EDT Narrative Authorizing ProviderResult TypeResult StatusGustavo Caruso MD98 GENERAL LABFinal ResultPerforming OrganizationAddressCity/State/ZIP CodePhone Number [facility] [address] [place] [address] * GOLD TOP - SST TUBE, BLOOD (02/08/2025 6:48 PM EDT)ComponentValueRef RangeTest MethodAnalysis TimePerformed AtPathologist SignatureExtra TthrGiyj59/23/2025 9:01 PM [facility] PATHOLOGY LABORATORYSpecimen (Source)Anatomical Location / LateralityCollection Method / VolumeCollection TimeReceived TimeBloodBLOOD SPECIMEN / UnknownVenipuncture / Ccmtmff8702/08/2025 6:48 PM EDT02/08/2025 7:12 PM EDT Narrative Authorizing ProviderResult TypeResult StatusAnthony Pierce MDEC LAB ORDER ONLYFinal ResultPerforming OrganizationAddressCity/State/ZIP CodePhone Number [facility] [address] [place] [address] * (ABNORMAL) COMPLETE BLOOD COUNT (02/08/2025 1:13 PM EDT)ComponentValueRef RangeTest MethodAnalysis TimePerformed AtPathologist SignatureWBC6.94.5 - 11.5 K/uL02/08/2025 1:22 PM [facility] PATHOLOG[facility] LABORATORYRBC3.64(L)4.00 - 5.20 M/uL 02/08/2025 1:22 PM [facility] OWJLQQNRZUWfrabgdgcl30.3(L)12.0 - 15.0 g/dL02/08/2025 1:22 PM [facility] ACOSYRMDBXZszlsfflof51.2(L)36.0 - 46.0 %02/08/2025 1:22 PM [facility] VTJYAOCCGIFKF2653 - 100 fL02/08/2025 1:22 PM [facility] SADRPZYMMETCD33.026.0 - 34.0 pg02/08/2025 1:22 PM [facility] FNNXKBNORPNADM69.932.0 - 35.9 g/dL02/08/2025 1:22 PM [facility] BCSQLPFRUZCikrrihf463399 - 400 K/uL02/08/2025 1:22 PM [facility] PATHOLOGY LABORATORYRDW-CV14.411.5 - 14.5 %02/08/2025 1:22 PM [facility] PATH[facility] LABORATORYMPV7.87.5 - 11.2 fL02/08/2025 1:22 PM [facility] Specimen (Source)Anatomical Location / LateralityCollection Method / Volume Collection TimeReceived TimeBloodBLOOD SPECIMEN / UnknownVenipuncture / Ivqiehc4302/08/2025 1:13 PM EDT02/08/2025 1:17 PM EDT Narrative Authorizing ProviderResult TypeResult StatusGustavo Caruso MD98 GENERAL LABFinal ResultPerforming OrganizationAddressCity/State/ZIP CodePhone Number [facility] [address] [place] [address] * CONFIRMATION ABO/RH (02/08/2025 7:32 AM EDT)ComponentValueRef RangeTest Method Analysis TimePerformed AtPathologist SignatureABO Rh TypeA Jvzbfswr37/23/2025 9:22 AM [facility] PATH[facility] LABORATORYSpecimen Expiration [id number] 02/08/2025 9:22 AM [facility] PATH[facility] LABORATORYABO Rh/Dia/TXRX HistoryA Njvszwzd08/23/2025 9:22 AM [facility] PATHOLOGY LABORATORYSpecimen (Source) Anatomical Location / LateralityCollection Method / VolumeCollection Time Received TimeBloodBLOOD SPECIMEN / UnknownVenipuncture / Reukoab5602/08/2025 7:32 AM EDT02/08/2025 7:32 AM EDT Narrative Authorizing ProviderResult TypeResult StatusGustavo POP BLOOD BANKFinal ResultPerforming OrganizationAddressty/State/ZIP CodePhone Number [facility] [address] [place] [phone] * TYPE AND SCREEN (02/08/2025 7:22 AM EDT)ComponentValueRef RangeTest Method Analysis TimePerformed AtPathologist SignatureABO Rh TypeA Ozvfwdbg37/23/2025 9:21 AM [facility] PATH[facility] LABORATORYAb Screen QafdvuQiwhujhk44/23/2025 9:21 AM [facility] PATHOLOGY LABORATORYSpecimen Expiration [id number]/23/2025 9:21 AM [facility] PATHOLOG[facility] LABORATORYABO Rh/Dia/TXRX HistoryNo Previous Results 02/08/2025 9:21 AM [facility] PATHOLOG[facility] LABORATORYSpecimen (Source)Anatomical Location / LateralityCollection Method / VolumeCollection TimeReceived Time BloodBLOOD SPECIMEN / UnknownVenipuncture / Tlenrry1702/08/2025 7:22 AM EDT 02/08/2025 7:30 AM EDT Narrative Authorizing ProviderResult TypeResult Alicia POP BLOOD BANKFinal ResultPerforming OrganizationAddressty/State/ZIP CodePhone Number [facility] [address] [place] [address] * (ABNORMAL) PROTHROMBIN TIME AND INR (02/08/2025 5:01 AM EDT)ComponentValueRef RangeTest MethodAnalysis TimePerformed AtPathologist NbhcgbcqnIfzyvrd49.99.7 - 12.9 sec02/08/2025 5:45 AM [facility] PATHOLOGY LABORATORYINR1.15(H)0.90 - 1.10 02/08/2025 5:45 AM [facility] PATHOLOGY LABORATORYSpecimen (Source)Anatomical Location / LateralityCollection Method / VolumeCollection TimeReceived Time BloodBLOOD SPECIMEN / UnknownVenipuncture / Trolemq2002/08/2025 5:01 AM EDT 02/08/2025 5:21 AM EDT Narrative Authorizing ProviderResult TypeResult Alicia Caruso MD98 GENERAL LABFinal ResultPerforming OrganizationAddressty/State/ZIP CodePhone Number [facility] [address] [place] [phone] * LACTIC ACID (02/08/2025 5:01 AM EDT)ComponentValueRef RangeTest MethodAnalysis TimePerformed AtPathologist SignatureLactate0.80.5 - 1.6 mmol/L02/08/2025 5:17 AM [facility] PATHOLOGY LABORATORYSpecimen (Source)Anatomical Location / LateralityCollection Method / VolumeCollection TimeReceived TimeBloodBLOOD SPECIMEN / UnknownVenipuncture / Burlnuu8402/08/2025 5:01 AM EDT02/08/2025 5:12 AM EDT Narrative [facility] - 02/08/2025 5:17 AM EDT This test was developed, and its performance characteristics determined by the Department of Pathology of [facility]. It has not been cleared or approved by the FDA. This test is used for clinical purposes only. Authorizing ProviderResult TypeResult Alicia SENIOR GENERAL LABFinal ResultPerforming OrganizationAddressCity/State/ZIP CodePhone Number [facility] [address] [place] [phone] * (ABNORMAL) HEPATIC FUNCTION PANEL (02/08/2025 5:00 AM EDT)ComponentValueRef RangeTest MethodAnalysis TimePerformed AtPathologist SignatureAlbumin3.93.5 - 5.7 g/dL02/08/2025 5:54 AM [facility]TH[facility] PATHOLOGY LABORATORYBilirubin, Direct0.11 0.03 - 0.18 mg/dL02/08/2025 5:54 AM [facility] LABORATORYBilirubin, Total0.60.3 - 1.0 mg/dL02/08/2025 5:54 AM [facility] PATHOLOGY LABORATORYAlkaline Mkaijaoygqc1002 - 104 IU/L02/08/2025 5:54 AM [facility] PATH[facility] LABORATORYALT (SGPT)217 - 52 IU/L02/08/2025 5:54 AM [facility] PATHOLOGY LABORATORYAST (SGOT)26 13 - 39 IU/L02/08/2025 5:54 AM [facility] LABORATORYProtein, Total5.9(L) 6.0 - 8.3 g/dL02/08/2025 5:54 AM [facility] PATHOLOGY LABORATORYSpecimen (Source) Anatomical Location / LateralityCollection Method / VolumeCollection Time Received TimeBloodBLOOD SPECIMEN / UnknownVenipuncture / Jjtzbrt9502/08/2025 5:00 AM EDT02/08/2025 5:21 AM EDT Narrative Authorizing ProviderResult TypeResult StatusGustavo Caruos MD98 GENERAL LABFinal ResultPerforming OrganizationAddressCity/State/ZIP CodePhone Number [facility] [address] [place] [phone] * (ABNORMAL) BASIC METABOLIC PANEL (02/08/2025 5:00 AM EDT)ComponentValueRef RangeTest MethodAnalysis TimePerformed AtPathologist HoigmwiahQslgryi110(H)74 - 109 mg/dL02/08/2025 5:54 AM [facility] EXCWYFUBYUHzstfp291303 - 145 mmol/L02/08/2025 5:54 AM [facility] PATH[facility] LABORATORYPotassium3.93.5 - 5.0 mmol/L02/08/2025 5:54 AM [facility] PATHOLOG[facility] LABORATORYCarbon Lgokrry1706 - 31 mmol/L02/08/2025 5:54 AM [facility] NGTGIJXYLUNsxobayv49152 - 107 mmol/L 02/08/2025 5:54 AM [facility] PATHOLOGY LABORATORYBlood Urea Ppranlif158 - 25 mg/dL02/08/2025 5:54 AM [facility] PATH[facility]Y LABORATORYCreatinine0.750.60 - 1.20 mg/dL02/08/2025 5:54 AM [facility] PATH[facility] LABORATORYCalcium9.28.6 - 10.3 mg/dL 02/08/2025 5:54 AM [facility] PATHOLOGY LABORATORYAnion Zdm8362 - 5:54 AM [facility] PATHOLOGY LABORATORYEstimated GFR (CKD-EPI)80>=60 mL/min/1.54hkc1702/08/2025 5:54 AM [facility] PATHOLOGY LABORATORYComment: 2020 CKD EPI Equation using Creatinine without Race Comment: ??Estimated glomerular filtration rate (eGFR) is calculated without a race coefficient. Values should be interpreted in the context of the patient's full clinical presentation. Reference: 1. Phill C, Jose Roberto M, Bella DC, et al.. A Unifying Approach for GFR Estimation: Recommendations of the NKF-ASN Task Force on Reassessing the Inclusion of Race in Diagnosing Kidney Disease. AmericanJournal of Kidney Diseases 2021;79(2):268-88.e1. 2. N Engl J Med 1 Vol. 385 Issue 19 Pages 4248-1392 Specimen (Source)Anatomical Location / LateralityCollection Method / Volume Collection TimeReceived TimeBloodBLOOD SPECIMEN / UnknownVenipuncture / Unknown 02/08/2025 5:00 AM EDT02/08/2025 5:21 AM EDT Narrative Authorizing ProviderResult TypeResult StatusGustavo Caruso MD98 GENERAL LABFinal ResultPerforming OrganizationAddressCity/State/ZIP CodePhone Number [facility] [address] [place] [phone] * (ABNORMAL) COMPLETE BLOOD COUNT (02/08/2025 5:00 AM EDT)ComponentValueRef RangeTest MethodAnalysis TimePerformed AtPathologist SignatureWBC8.84.5 - 11.5 K/uL02/08/2025 5:26 AM [facility] PATH[facility] LABORATORYRBC3.67(L)4.00 - 5.20 M/uL 02/08/2025 5:26 AM [facility] ZLVIMAZXNDTetqvysopg68.4(L)12.0 - 15.0 g/dL02/08/2025 5:26 AM [facility] JRDMOZDVZYTkziqgdgnv27.4(L)36.0 - 46.0 %02/08/2025 5:26 AM [facility] VYZPILIJXSZRY7589 - 100 fL02/08/2025 5:26 AM [facility] DWBTUVZHHBGCF15.026.0 - 34.0 pg02/08/2025 5:26 AM [facility] MXRICCRRSCKLVI44.132.0 - 35.9 g/dL02/08/2025 5:26 AM [facility] DOPLJZPFVDMiloaofe439255 - 400 K/uL02/08/2025 5:26 AM [facility] PATH[facility]Y LABORATORYRDW-CV14.411.5 - 14.5 %02/08/2025 5:26 AM [facility] PATH[facility] LABORATORYMPV8.17.5 - 11.2 fL02/08/2025 5:26 AM [facility] Specimen (Source)Anatomical Location / LateralityCollection Method / Volume Collection TimeReceived TimeBloodBLOOD SPECIMEN / UnknownVenipuncture / Irbrdkn8302/08/2025 5:00 AM EDT02/08/2025 5:21 AM EDT Narrative Authorizing ProviderResult TypeResult Alicia Caruso MD98 GENERAL LABFinal ResultPerforming OrganizationAddressCity/State/ZIP CodePhone Number [facility] [address] [place] [address] * CT BODY IMAGE IMPORT([place]) (02/08/2025 4:31 AM EDT)Specimen (Source)Anatomical Location / LateralityCollection Method / VolumeCollection TimeReceived Time Narrative Authorizing ProviderResult TypeResult Iram POP CT SCANFinal Result * XRAY CHEST IMAGE IMPORT([place]) (02/08/2025 4:31 AM EDT)Specimen (Source) Anatomical Location / LateralityCollection Method / VolumeCollection Time Received Time Narrative Authorizing ProviderResult TypeResult Iram POP DIAGNOSTIC X-RAY Final Result * EKG 12 LEAD - PERFORM (02/08/2025 3:44 AM EDT)ComponentValueRef RangeTest MethodAnalysis TimePerformed AtPathologist SignatureVentricular qedb06JLJKJTZ Atrial Nhdc11OKNQMHVN-E Iydihdgk143kkUEZZDJJ ruftkrgo84smLCATO-Q fpbqgcbw344ae MUSEQTC CALCULATION(BEZET)454msMUSEP klcw09qrmttqzUNQEI axis-22degreesMUSET wmjj65rdroyrvEWVWKqycwyoyjIydshl sinus rhythm Normal ECG No previous ECGs available Confirmed by fellow Emile Orenlas ([id number]) on 02/11/2025 2:07:29 PM Confirmed by MIR TORRES ([id number]) on 02/12/2025 12:29:36 PM MUSESpecimen (Source)Anatomical Location / LateralityCollection Method / Volume Collection TimeReceived Time02/08/2025 3:44 AM EDT02/12/2025 12:29 PM EDT Narrative Authorizing ProviderResult TypeResult StatusTo Be AssignedIP VITAL SIGN ORDERS Edited Result - FinalPerforming OrganizationAddressCity/State/ZIP CodePhone Number MUSE [address] [address] [facility] [place] [address] from Last 3 Months Insurance Advance Directives * Full Code (Latest Code Status on File) Date ActivatedDate InactivatedComments02/08/2025 6:02 AM02/09/2025 7:57 PMQuestion AnswerCommentsDocumentation of decision process for this code status:* Patient and surrogate unable or unavailable to discuss.?? There is no previous documentation of code status.?? Defaulting to Full Code
--- NOTE | 2025-04-10 19:25 | CT_ITS ---
The [address] [address] Patient Name: MARY CARMEN ALCARAZ MRN: [id number] date: 1945 Sex: F Assigned Patient Location: ER Current Patient Location: ER Accession/Order Number: [id number] Exam Date: 04/10/2025 19:35 Report Date: 04/10/2025 20:09 At the request of: DAGMAR CARSON Procedure: CT head/brain wo con CT BRAIN WITHOUT CONTRAST: CLINICAL HISTORY: Fall COMPARISON: None TECHNIQUE: Contiguous axial unenhanced images were obtained through the brain. This CT exam was performed using one or more following dose reduction techniques: Automated exposure control, adjustment of the mA and/or kV according to patient size, or use of iterative reconstruction technique. FINDINGS: There is no evidence of midline shift, intra or extra-axial fluid collection, hemorrhage or CT evidence of acute large vascular distribution stroke. Central involutional changes and mild chronic small vessel ischemic disease. 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 Cataract surgery. Visualized paranasal sinuses are clear. Left supraorbital soft tissue swelling. No calvarial fracture. CT/CT head/brain wo con IMPRESSION: NO ACUTE INTRACRANIAL ABNORMALITY. CHRONIC MICROVASCULAR CHANGES. Impression dictated by: Pan Stratton M.D. 04/10/2025 8:09 PM Dictation Location: [place] [address] Electronically authenticated by: [id number] Y Date: 04/10/2025 20:09
--- NOTE | 2025-04-10 19:25 | CT_ITS ---
The [address] [address] Patient Name: MARY CARMEN ALCARAZ MRN: [id number] date: 1945 Sex: F Assigned Patient Location: ED.MAIN Current Patient Location: ER Accession/Order Number: [id number] Exam Date: 04/10/2025 19:35 Report Date: 04/10/2025 20:11 At the request of: DAGMAR CARSON Procedure: CT facial bones wo con MAXILLOFACIAL CT WITHOUT CONTRAST: CLINICAL HISTORY: injury COMPARISON: None TECHNIQUE: Spiral axial unenhanced images were obtained through the facial bones. Coronal and sagittal reconstructions were also reviewed. This CT exam was performed using one or more following dose reduction techniques: Automated exposure control, adjustment of the mA and/or kV according to patient size, or use of iterative reconstruction technique. FINDINGS: No facial bone fracture or bony destruction is identified. There is appropriate development and pneumatization of the paranasal sinuses. There is no mucosal thickening or fluid levels. The ostiomeatal complexes are patent. Cataract surgery. No retrobulbar hematoma. Orbital adnexa are unremarkable as visualized Left supraorbital soft tissue swelling and contusion injury. CT/CT facial bones wo con IMPRESSION: NO EVIDENCE OF FACIAL BONE INJURY Impression dictated by: Pan Stratton M.D. 04/10/2025 8:11 PM Dictation Location: [place] [address] Electronically authenticated by: [id number] Y Date: 04/10/2025 20:11
--- NOTE | 2025-04-10 19:25 | CT_ITS ---
The [address] [address] Patient Name: MARY CARMEN ALCARAZ MRN: [id number] date: 1945 Sex: F Assigned Patient Location: ED.MAIN Current Patient Location: Accession/Order Number: [id number] Exam Date: 04/10/2025 19:35 Report Date: 04/10/2025 20:14 At the request of: DAGMAR CARSON Procedure: CT cervical spine wo con CT CERVICAL SPINE WITHOUT CONTRAST WITH 3D RECONSTRUCTIONS: CLINICAL HISTORY: fall COMPARISON: None TECHNIQUE: Spiral axial unenhanced images were obtained through the cervical spine. Sagittal, coronal and 3D volume-rendered reconstructions were also reviewed. This CT exam was performed using one or more following dose reduction techniques: Automated exposure control, adjustment of the mA and/or kV according to patient size, or use of iterative reconstruction technique. FINDINGS: Osteopenia. There is mild loss of height at C7 and T1 without definite evidence fracture line suggests a chronic process. Multilevel facet arthropathy. Multilevel disc space narrowing and endplate osteophytosis greatest C5-C6. Central canal narrowing greatest C5-C6. Left apical parenchymal opacities noted nonspecific but could represent area of scarring or partial collapse or atelectasis. CT/CT cervical spine wo con IMPRESSION: NO ACUTE CERVICAL SPINE FRACTURE FOLLOW. C7-T1 LIKELY CHRONIC. OTHERWISE MULTILEVEL DEGENERATIVE CHANGE. NONOSSIFIC PARENCHYMAL OPACITIES LEFT LUNG APEX NOTED. Impression dictated by: Pan Stratton M.D. 04/10/2025 8:14 PM Dictation Location: [place] [address] Electronically authenticated by: [id number] Y Date: 04/10/2025 20:14
--- NOTE | 2025-04-10 19:26 | ED.GENADUL1 ---
HPI HPI - General Adult General Chief complaint: Extremity Injury, Upper Stated complaint: FALL Time Seen by Provider: 04/10/25 19:25 Source: patient Mode of arrival: walk-in Limitations: no limitations History of Present Illness HPI narrative: 80 year old female presents to the ED for a head injury s/p fall today. She lost her balance when leaning forward, hitting her head. Denies LOC, vision changes, weakness, dizziness, N/V. She has abrasions, bruising to the left side of her face. Reports mild neck discomfort with palpation. Denies pain to her back, chest, abdomen, hips. She has a contusion to her left shoulder. Tetanus status is unknown. Related Data Home Medications ?Medication ?Instructions ?Recorded ?Confirmed alprazolam 1 mg tablet 1 mg PO .QHS 02/10/25 04/10/25 atorvastatin 20 mg tablet 20 mg PO DAILY 02/10/25 04/10/25 bupropion HCl 300 mg 24 hr tablet, 300 mg PO QAM 02/10/25 04/10/25 extended release fluoxetine 20 mg capsule 60 mg PO DAILY 02/10/25 04/10/25 losartan 50 mg tablet 50 mg PO DAILY 02/10/25 04/10/25 pantoprazole 40 mg tablet,delayed 40 mg PO DAILY 02/10/25 02/10/25 release trazodone 100 mg tablet 100 mg PO .QHS 02/10/25 02/10/25 oxybutynin chloride 5 mg mg PO 04/10/25 tablet,extended release 24 hr Previous Rx's ?Medication ?Instructions ?Recorded hydrocodone 5 mg-acetaminophen 325 1 tab PO Q8H PRN pain 3 days #9 04/10/25 mg tablet tabs Allergies Allergy/AdvReac Type Severity Reaction Status Date / Time Penicillins AdvReac Severe syncope Verified 02/10/25 20:42 Opioid HPI Opioid Management Most Recent Opioid Data: Last Pain Scale 10 02/07/25, 23:54 Review of Systems ROS Constitutional Denies: fever, chills or fatigue Eyes Denies: change in vision Ears, nose, mouth, and throat Reports: neck pain; Denies: nose bleeds Cardiovascular Denies: chest pain Respiratory Denies: shortness of breath Gastrointestinal Denies: abdominal pain, nausea or vomiting Musculoskeletal Reports: neck pain; Denies: back pain, extremity pain or extremity swelling Integumentary/Breast Reports: new lesion Neurological Reports: headache; Denies: numbness in extremities, weakness in extremities or dizziness PFSH [facility] Social History Little interest or pleasure in doing things: not at all Feeling down, depressed, or hopeless: not at all Exam Constitutional Vital Signs, click to edit/add: Last Vital Signs Temp 98.4 F 04/10/25 19:17 Pulse 78 04/10/25 19:17 Resp 18 04/10/25 19:17 BP 155/99 H 04/10/25 19:17 Pulse Ox 98 04/10/25 19:17 O2 Del Method Room Air 04/10/25 19:17 Common normals: no apparent distress and oriented x3 General appearance: cooperative HENMT Common normals: external ears normal, moist oral mucous membranes and oropharynx normal Head and scalp: abrasion, contusion and hematoma; no Cruz's sign and no raccoon eyes Nose: no epistaxis External ear: external ears normal Other: Moderate hematoma to left forehead and developing to left cheek. There are abrasions to the areas. Eye Common normals: PERRL, EOMs intact bilaterally, conjunctivae normal and no scleral icterus Neck & C-Spine Cervical spine: paracervical muscle tenderness; no cervical spine tenderness and no step off deformity Chest Chest: symmetrical chest wall rise Respiratory Common normals: normal respiratory effort Effort & inspection: able to speak in complete sentences and symmetric chest movement Cardio Common normals: regular rate Back & Pelvis Thoracic spine/upper back: no thoracic spinal tenderness and no paraspinal muscle tenderness Lumbar spine/lower back: no lumbar spinal tenderness and no paraspinal muscle tenderness Extremity Other: Full ROM to BUE and BLE. There is a contusion and tenderness to the left should area. No obvious deformity noted. Distal sensation intact. Neuro Common normals: oriented x3, CN's II-XII intact bilaterally and moves all extremities Sensorium/orientation: awake and alert Speech: speech normal Course Vital Signs Vital signs: Vital Signs Temperature 98.4 F 04/10/25 19:17 Pulse Rate 78 04/10/25 19:17 Respiratory Rate 18 04/10/25 19:17 Blood Pressure 155/99 H 04/10/25 19:17 Pulse Oximetry 98 10/23/25 19:17 Oxygen Delivery Method Room Air 04/10/25 19:17 Temperature 98.4 F 04/10/25 19:17 Pulse Rate 78 04/10/25 19:17 Respiratory Rate 18 04/10/25 19:17 Blood Pressure 155/99 H 04/10/25 19:17 Pulse Oximetry 98 04/10/25 19:17 Oxygen Delivery Method Room Air 04/10/25 19:17 Medical Decision Making MDM Narrative Medical decision making narrative: CT scans of the head, facial bones, and cervical spine were completed. X-rays of the left shoulder were completed. Imaging was negative for acute findings. Findings were discussed with the patient and her family member. Her tetanus status was updated here. She was given a norco. OARRS was reviewed. A prescription was provided for norco. She reported acetaminophen typically does not help with her discomfort. Follow up with pcp for a recheck, further evaluation and treatment. Return to the ED if condition worsens. Medical Records Medical records reviewed: Yes I reviewed the patient's medical records Imaging Data CT scan - head: Radiologist's impression: ITS Impressions Cervical Spine CT 04/10/25 19:25 IMPRESSION: NO ACUTE CERVICAL SPINE FRACTURE FOLLOW. C7-T1 LIKELY CHRONIC. OTHERWISE MULTILEVEL DEGENERATIVE CHANGE. NONOSSIFIC PARENCHYMAL OPACITIES LEFT LUNG APEX NOTED. Impression dictated by: Pan Stratton M.D. 04/10/2025 8:14 PM Dictation Location: [employer] Electronically authenticated by: [id number] Y Date: 04/10/2025 20:[address] 04/10/25 19:25 IMPRESSION: NO EVIDENCE OF FACIAL BONE INJURY Impression dictated by: Pan Stratton M.D. 04/10/2025 8:11 PM Dictation Location: [employer] Electronically authenticated by: [id number] Y Date: 04/10/2025 20:[address] 04/10/25 19:25 IMPRESSION: NO ACUTE INTRACRANIAL ABNORMALITY. CHRONIC MICROVASCULAR CHANGES. Impression dictated by: Pan Stratton M.D. 04/10/2025 8:09 PM Dictation Location: [employer] Electronically authenticated by: [id number] Y Date: 04/10/2025 20:09 Shoulder X-Ray 04/10/25 20:06 IMPRESSION: No acute bony process. Degenerative change. Impression dictated by: Pan Stratton M.D. 04/10/2025 8:54 PM Dictation Location: [place] [address] Electronically authenticated by: [id number] Y Date: 04/10/2025 20:54 Discharge Plan Discharge Chief Complaint: Extremity Injury, Upper Clinical Impression: Head injury, Contusion of face, Contusion of left shoulder Patient Disposition: Home, Self-Care Time of Disposition Decision: 21:15 Condition: Good Mode of Transportation: Private Vehicle Prescriptions / Home Meds: New hydrocodone-acetaminophen 5-325 mg tablet 1 tab PO Q8H PRN (Reason: pain) 3 Days Qty: 9 0RF No Action oxybutynin chloride 5 mg tablet extended release 24hr PO alprazolam 1 mg tablet 1 mg PO .QHS atorvastatin 20 mg tablet 20 mg PO DAILY bupropion HCl 300 mg tablet extended release 24 hr 300 mg PO QAM fluoxetine 20 mg capsule 60 mg PO DAILY losartan 50 mg tablet 50 mg PO DAILY pantoprazole 40 mg tablet,delayed release (DR/EC) 40 mg PO DAILY trazodone 100 mg tablet 100 mg PO .QHS Print Language: Ghanaian Instructions: Head Injury (ED), Contusion in Adults (ED), Hematoma (ED) Additional Instructions: Return to the ED for worsening symptoms. Referrals: Deepika Larose NP [Primary Care Provider] - 1 week Discharge Date/Time: 04/10/25 21:29
[2025-04-10] MEDS: HYDROCODONE/ACET 5-325 MG TABLET 1 TAB PO (19:47)
[2025-04-10] MEDS: DIPHTH,PERTUSS(ACELL),TET VAC 0.5 ML SYRINGE IM (19:48)
--- NOTE | 2025-04-10 20:06 | XR_ITS ---
[place] [id number] Patient Name: MARY CARMEN ALCARAZ MRN: [id number] date: 1945 Sex: F Assigned Patient Location: ER Current Patient Location: ER Accession/Order Number: [id number] Exam Date: 04/10/2025 20:15 Report Date: 04/10/2025 20:54 At the request of: DAGMAR CARSON Procedure: XR shoulder LT min 2V 3 views left shoulder CLINICAL HISTORY: pain, fall COMPARISON: None FINDINGS: Mild to moderate degenerative changes glenohumeral and acromioclavicular joints.. Negative for acute fracture identified. Soft tissues unremarkable. Left lung apex clear. XR/XR shoulder LT min 2V IMPRESSION: No acute bony process. Degenerative change. Impression dictated by: Pan Stratton M.D. 04/10/2025 8:54 PM Dictation Location: [place] [address] Electronically authenticated by: [id number] Y Date: 04/10/2025 20:54
== END 2025-04-10 21:29 | disposition home or self-care (01) ==
PROVIDERS: Emergency Provider Emergency Medicine; PCP Nurse Practitioner Family
DX: S09.8XXA Other specified injuries of head, initial encounter (principal); S00.83XA Contusion of other part of head, initial encounter; S40.012A Contusion of left shoulder, initial encounter; W18.39XA Other fall on same level, initial encounter; M54.2 Cervicalgia
CPT/HCPCS: 70450; 70486; 72125; 73030; 76376; 90471; 90715; 99284

== ENCOUNTER 2025-05-08 16:37 | Outpatient (OUT) | payer MEDICARE, SELFPAY ==
--- OUTSIDE RECORDS SUMMARY | 2025-05-08 16:41 | XMS_ITS | Clinical Summary ---
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 Role Phone Unavailable Primary Care Provider Unavailabl e Source Comments The following information is NOT included in Care Everywhere downloads:Psychiatric notes, ECG results, Cardiac Rehab notes, Pulmonary Function notes, data from SmartForms (includes but not limited toPregnancy data,audiograms, eye exams, pre-surgical evaluation notes, well-child exam data).[facility] Active Problems ProblemNoted DateDiagnosed DateCapsular tears to spleen, initial encounter 02/08/2025 Encounters DateTypeDepartmentCare WldjBmuxcksyude83/23/2025 3:25 AM EDT - 02/09/2025 5:52 PM EDTHospital Encounter [place] [id number] Ang Pagan MD Jain, Gary, MD Capsular tears to spleen, initial encounter (Primary Dx); Left lower quadrant abdominal pain; Hemoperitoneum Discharge Disposition: Discharge to Home02/08/2025Travelfrom Last 3 Months Social History Tobacco UseTypesPacks/DayYears UsedDateSmoking Tobacco: Never [facility] UtilitiesAnswerDate RecordedIn the past 12 months has [...] RecordedIn the past 12 months has the [employer], gas, oil, or water [facility] threatened to shut off services in your home?No02/08/2025CommentsUnknownSex and Gender InformationValueDate RecordedSex Assigned at BirthNot on fileLegal NgpQkwxgw29/22/2025 11:42 PM EDT Gender IdentityNot on fileSexual OrientationNot on file Last Filed Vital Signs Vital SignReadingTime TakenCommentsBlood Lhxdjpqf593/9008 2:10 PM EDT Krlyw3031/24/2025 2:10 PM JYOAlnbmadquzf27.2 ??C (99 ??F)02/09/2025 2:10 PM EDT Respiratory Bnet040402/09/2025 2:10 PM EDTOxygen Cwnovhkleb69%02/09/2025 2:10 PM EDTInhaled Oxygen Concentration--Lcdguc31 kg (147 lb 12.8 oz)02/08/2025 7:00 AM ZZQSgubov763 cm (5' 3 )02/08/2025 7:00 AM EDTBody Mass Index26.18002/08/2025 7:00 AM EDT Plan of Treatment Health MaintenanceDue DateLast DoneCommentsTdap Aotcuty6502/04/1962Hepatitis A (HAV) Vaccine (optional start 19+ years)02/04/1963Pneumococcal Vaccine(s) (50+ yrs) (1 of 1 - PCV)02/04/1994Shingles (RZV) Vaccine (1 of 2)02/04/1994Hepatitis B (HBV) Vaccine (optional start 60+ years)2004Bone Jngbkxmjnssw88/19/2009 RSV vaccine (adult) (1 - 1-dose 75+ series)02/04/2019Welcome to Medicare Visit (G0402)08/17/2024OVID-19 Vaccine ( - 2024- season)2025Influenza Vaccine (#1)2025Pap SmearDiscontinued Procedures Procedure NamePriorityDate/TimeAssociated DiagnosisCommentsCOMPLETE BLOOD COUNT Szuhrzr4102/09/2025 2:10 PM EDT COMPLETE BLOOD IXWWQXOKF74/24/2025 1:53 AM EDT WWJMUJWYEGRYLC14/24/2025 1:37 AM EDT AJOPYLUGFIQIT47/24/2025 1:37 AM EDT BASIC METABOLIC YNOTUCYPW53/24/2025 1:37 AM EDT COMPLETE BLOOD YUBGBAJMT79/23/2025 7:18 PM EDT GOLD TOP - SST TUBE, DVXPWZcubipq26/23/2025 6:48 PM EDT COMPLETE BLOOD CHNNVSUVO12/23/2025 1:13 PM EDT CONFIRMATION ABO/ZBVVBD0602/08/2025 7:32 AM EDT TYPE AND DYZTWWJEUN89/23/2025 7:22 AM EDT PROTHROMBIN TIME AND PUNBMDP7402/08/2025 5:01 AM EDT LACTIC IHKNJCYW91/23/2025 5:01 AM EDT HC HEPATIC FUNCTION LGZNSDKGN79/23/2025 5:00 AM EDT BASIC METABOLIC LUBMBJLEW35/23/2025 5:00 AM EDT COMPLETE BLOOD HIJVHSPZX38/23/2025 5:[address] BODY IMAGE WOSBSLTVOI21/23/2025 4:31 AM EDTXRAY CHEST IMAGE IMPORTSTAT 02/08/2025 4:31 AM EDTEKG 12 LEAD - GVVBJSJRphtsep16/23/2025 3:44 AM EDT from Last 3 Months Results * (ABNORMAL) COMPLETE BLOOD COUNT (02/09/2025 2:10 PM EDT)ComponentValueRef RangeTest MethodAnalysis TimePerformed AtPathologist SignatureWBC7.24.5 - 11.5 K/uL02/09/2025 2:24 PM [facility] LABORATORYRBC3.54(L)4.00 - 5.20 M/uL 02/09/2025 2:24 PM [facility] CBROUSBOIMVngappbahz05.2(L)12.0 - 15.0 g/dL02/09/2025 2:24 PM [facility] NCEYVWFUBJLfwtppkrns87.8(L)36.0 - 46.0 %02/09/2025 2:24 PM [facility] ZACNAVTMHFNRC3627 - 100 fL02/09/2025 2:24 PM [facility] TDSXLKMREHFHM69.626.0 - 34.0 pg02/09/2025 2:24 PM [facility] CRJJVEMJXGUZZU91.132.0 - 35.9 g/dL02/09/2025 2:24 PM [facility] ESNRIOGVPKCvtvgkyt298635 - 400 K/uL02/09/2025 2:24 PM [facility] LABORATORYRDW-CV14.411.5 - 14.5 %02/09/2025 2:24 PM [facility] LABORATORYMPV8.07.5 - 11.2 WI02/09/2025 2:24 PM [facility] Specimen (Source)Anatomical Location / LateralityCollection Method / Volume Collection TimeReceived TimeBloodBLOOD SPECIMEN / UnknownVenipuncture / Hmfxsxv6202/09/2025 2:10 PM EDT02/09/2025 2:17 PM EDT Narrative Authorizing ProviderResult TypeResult StatusAlessandasuncion Azul MD98 GENERAL LAB Final ResultPerforming OrganizationAddressCity/State/ZIP CodePhone Number [facility] [address] [place] [address] * (ABNORMAL) COMPLETE BLOOD COUNT (02/09/2025 1:53 AM EDT)ComponentValueRef RangeTest MethodAnalysis TimePerformed AtPathologist SignatureWBC5.54.5 - 11.5 K/uL02/09/2025 2:23 AM [facility] LABORATORYRBC3.17(L)4.00 - 5.20 M/uL 02/09/2025 2:23 AM [facility] SOTZZVHSADCgpgngchyv53.0(L)12.0 - 15.0 g/dL02/09/2025 2:23 AM [facility] BKUTBSZZLLJlioxmdddl02.6(L)36.0 - 46.0 %02/09/2025 2:23 AM [facility] VMJDOQYJGGTVT5528 - 100 fL02/09/2025 2:23 AM [facility] YNSNPBRBKPSNJ66.626.0 - 34.0 pg02/09/2025 2:23 AM [facility] QGLINTIKOBRDRJ77.832.0 - 35.9 g/dL02/09/2025 2:23 AM [facility] ZOQXKWFUCJLcpwaokn740792 - 400 K/uL02/09/2025 2:23 AM [facility] LABORATORYRDW-CV14.111.5 - 14.5 %02/09/2025 2:23 AM [facility] LABORATORYMPV7.97.5 - 11.2 fL02/09/2025 2:23 AM [facility] Specimen (Source)Anatomical Location / LateralityCollection Method / Volume Collection TimeReceived TimeBloodBLOOD SPECIMEN / UnknownVenipuncture / Pqktmha6802/09/2025 1:53 AM EDT02/09/2025 2:17 AM EDT Narrative Authorizing ProviderResult TypeResult StatusGustavo Caruso MD98 GENERAL LABFinal ResultPerforming OrganizationAddressCity/State/ZIP CodePhone Number [facility] [address] [place] [address] * (ABNORMAL) BASIC METABOLIC PANEL (02/09/2025 1:37 AM EDT)ComponentValueRef RangeTest MethodAnalysis TimePerformed AtPathologist NuaqfwrnlUsyrkmu9877 - 109 mg/dL02/09/2025 2:06 AM [facility] NRPXEJFUATAhqtfo245434 - 145 mmol/L02/09/2025 2:06 AM [facility] LABORATORYPotassium3.63.5 - 5.0 mmol/L02/09/2025 2:06 AM [facility] LABORATORYCarbon Dvctrgv8846 - 31 mmol/L02/09/2025 2:06 AM [facility] SEDJAOUYXUBsvytyes374(H)98 - 107 mmol/L02/09/2025 2:06 AM [facility] LABORATORYBlood Urea Hllrgvxj200 - 25 mg/dL02/09/2025 2:06 AM [facility] LABORATORYCreatinine0.720.60 - 1.20 mg/dL02/09/2025 2:06 AM [facility] LABORATORYCalcium9.08.6 - 10.3 mg/dL02/09/2025 2:06 AM [facility] LABORATORYAnion Wgq0228 - 20 02/09/2025 2:06 AM [facility] LABORATORYEstimated GFR (CKD-EPI)84>=60 mL/min/1.22nwx0202/09/2025 2:06 AM [facility] LABORATORYComment: 2020 CKD EPI Equation [...] Med 1 Vol. 385 Issue 19 Pages 8593-8064 Specimen (Source)Anatomical Location / LateralityCollection Method / Volume Collection TimeReceived TimeBloodBLOOD SPECIMEN / UnknownVenipuncture / Unknown 02/09/2025 1:37 AM EDT02/09/2025 1:41 AM EDT Narrative Authorizing ProviderResult TypeResult Alicia SENIOR GENERAL LABFinal ResultPerforming OrganizationAddressCity/State/ZIP CodePhone Number [facility] [address] [place] [phone] * PHOSPHORUS (02/09/2025 1:37 AM EDT)ComponentValueRef RangeTest MethodAnalysis TimePerformed AtPathologist SignaturePhosphorus, Serum2.82.5 - 5.0 mg/dL 02/09/2025 2:06 AM [facility] PATHOLOG[facility] LABORATORYSpecimen (Source)Anatomical Location / LateralityCollection Method / VolumeCollection TimeReceived Time BloodBLOOD SPECIMEN / UnknownVenipuncture / Kpuxlgm0902/09/2025 1:37 AM EDT 02/09/2025 1:41 AM EDT Narrative Authorizing ProviderResult TypeResult Alicia SENIOR GENERAL LABFinal ResultPerforming OrganizationAddressCity/State/ZIP CodePhone Number [facility] [address] [place] [address] * MAGNESIUM (02/09/2025 1:37 AM EDT)ComponentValueRef RangeTest MethodAnalysis TimePerformed AtPathologist SignatureMagnesium1.91.9 - 2.7 mg/dL02/09/2025 2:06 AM [facility] PATH[facility]Y LABORATORYSpecimen (Source)Anatomical Location / LateralityCollection Method / VolumeCollection TimeReceived TimeBloodBLOOD SPECIMEN / UnknownVenipuncture / Abknvsz7302/09/2025 1:37 AM EDT02/09/2025 1:41 AM EDT Narrative Authorizing ProviderResult TypeResult Alicia SENIOR GENERAL LABFinal ResultPerforming OrganizationAddressCity/State/ZIP CodePhone Number [facility] [address] [place] [address] * (ABNORMAL) COMPLETE BLOOD COUNT (02/08/2025 7:18 PM EDT)ComponentValueRef RangeTest MethodAnalysis TimePerformed AtPathologist SignatureWBC6.84.5 - 11.5 K/uL02/08/2025 7:46 PM [facility] LABORATORYRBC3.46(L)4.00 - 5.20 M/uL 02/08/2025 7:46 PM [facility] EZZCDOUIDKJwrybhanjs99.9(L)12.0 - 15.0 g/dL02/08/2025 7:46 PM [facility] RYOARXFISJAjtdfadrav31.6(L)36.0 - 46.0 %02/08/2025 7:46 PM [facility] WIVTXZVMAJFGO4592 - 100 fL02/08/2025 7:46 PM [facility] RPJWZOSUFIGJB33.626.0 - 34.0 pg02/08/2025 7:46 PM [facility] GIEHSBZRSAMVRH83.632.0 - 35.9 g/dL02/08/2025 7:46 PM [facility] ULSUGUQVPUMsxjievs069042 - 400 K/uL02/08/2025 7:46 PM [facility] LABORATORYRDW-CV14.311.5 - 14.5 %02/08/2025 7:46 PM [facility] LABORATORYMPV8.37.5 - 11.2 fL02/08/2025 7:46 PM [facility] Specimen (Source)Anatomical Location / LateralityCollection Method / Volume Collection TimeReceived TimeBloodBLOOD SPECIMEN / UnknownVenipuncture / Sxanfoo3702/08/2025 7:18 PM EDT02/08/2025 7:41 PM EDT Narrative Authorizing ProviderResult TypeResult StatusGustavo Caruso MD98 GENERAL LABFinal ResultPerforming OrganizationAddressCity/State/ZIP CodePhone Number [facility] [address] [place] [address] * GOLD TOP - SST TUBE, BLOOD (02/08/2025 6:48 PM EDT)ComponentValueRef RangeTest MethodAnalysis TimePerformed AtPathologist SignatureExtra TsqqGett68/23/2025 9:01 PM [facility] LABORATORYSpecimen (Source)Anatomical Location / LateralityCollection Method / VolumeCollection TimeReceived TimeBloodBLOOD SPECIMEN / UnknownVenipuncture / Zmdbdxs7002/08/2025 6:48 PM EDT02/08/2025 7:12 PM EDT Narrative Authorizing ProviderResult TypeResult StatusAnthony Pierce MDEC LAB ORDER ONLYFinal ResultPerforming OrganizationAddressCity/State/ZIP CodePhone Number [facility] [address] [place] [address] * (ABNORMAL) COMPLETE BLOOD COUNT (02/08/2025 1:13 PM EDT)ComponentValueRef RangeTest MethodAnalysis TimePerformed AtPathologist SignatureWBC6.94.5 - 11.5 K/uL02/08/2025 1:22 PM [facility] LABORATORYRBC3.64(L)4.00 - 5.20 M/uL 02/08/2025 1:22 PM [facility] MMJUFOFQZVEqcngtwvul56.3(L)12.0 - 15.0 g/dL02/08/2025 1:22 PM [facility] XEMBJSWBAVSuwwpjyvhl55.2(L)36.0 - 46.0 %02/08/2025 1:22 PM [facility] ARQFZFFWDMLHY3640 - 100 fL02/08/2025 1:22 PM [facility] IGADRFUFHBIIF98.026.0 - 34.0 pg02/08/2025 1:22 PM [facility] HTNGVQMMYGIOWI75.932.0 - 35.9 g/dL02/08/2025 1:22 PM [facility] VMGTAYSJKVDxzptijy357283 - 400 K/uL02/08/2025 1:22 PM [facility] LABORATORYRDW-CV14.411.5 - 14.5 %02/08/2025 1:22 PM [facility] LABORATORYMPV7.87.5 - 11.2 fL02/08/2025 1:22 PM [facility] Specimen (Source)Anatomical Location / LateralityCollection Method / Volume Collection TimeReceived TimeBloodBLOOD SPECIMEN / UnknownVenipuncture / Bqbhjwn4902/08/2025 1:13 PM EDT02/08/2025 1:17 PM EDT Narrative Authorizing ProviderResult TypeResult StatusGustavo Caruso MD98 GENERAL LABFinal ResultPerforming OrganizationAddressCity/State/ZIP CodePhone Number [facility] [address] [place] [address] * CONFIRMATION ABO/RH (02/08/2025 7:32 AM EDT)ComponentValueRef RangeTest Method Analysis TimePerformed AtPathologist SignatureABO Rh TypeA Ltlxutox31/23/2025 9:22 AM [facility] LABORATORYSpecimen Expiration [id number] 02/08/2025 9:22 AM [facility] LABORATORYABO Rh/Dia/TXRX HistoryA Bgzgxwki35/23/2025 9:22 AM [facility] LABORATORYSpecimen (Source) Anatomical Location / LateralityCollection Method / VolumeCollection Time Received TimeBloodBLOOD SPECIMEN / UnknownVenipuncture / Qrwmogw4702/08/2025 7:32 AM EDT02/08/2025 7:32 AM EDT Narrative Authorizing ProviderResult TypeResult StatusGustavo POP BLOOD BANKFinal ResultPerforming OrganizationAddressty/State/ZIP CodePhone Number [facility] [address] [place] [phone] * TYPE AND SCREEN (02/08/2025 7:22 AM EDT)ComponentValueRef RangeTest Method Analysis TimePerformed AtPathologist SignatureABO Rh TypeA Utlrugns37/23/2025 9:21 AM [facility] LABORATORYAb Screen MztqpmEliimbym02/23/2025 9:21 AM [facility] LABORATORYSpecimen Expiration [id number]/23/2025 9:21 AM [facility] LABORATORYABO Rh/Dia/TXRX HistoryNo Previous Results 02/08/2025 9:21 AM [facility] LABORATORYSpecimen (Source)Anatomical Location / LateralityCollection Method / VolumeCollection TimeReceived Time BloodBLOOD SPECIMEN / UnknownVenipuncture / Vkihnwp7102/08/2025 7:22 AM EDT 02/08/2025 7:30 AM EDT Narrative Authorizing ProviderResult TypeResult Alicia POP BLOOD BANKFinal ResultPerforming OrganizationAddressty/State/ZIP CodePhone Number [facility] [address] [place] [address] * (ABNORMAL) PROTHROMBIN TIME AND INR (02/08/2025 5:01 AM EDT)ComponentValueRef RangeTest MethodAnalysis TimePerformed AtPathologist JfwdixdjgDbxfdic93.99.7 - 12.9 sec02/08/2025 5:45 AM [facility] LABORATORYINR1.15(H)0.90 - 1.10 02/08/2025 5:45 AM [facility] LABORATORYSpecimen (Source)Anatomical Location / LateralityCollection Method / VolumeCollection TimeReceived Time BloodBLOOD SPECIMEN / UnknownVenipuncture / Gblucbd0002/08/2025 5:01 AM EDT 02/08/2025 5:21 AM EDT Narrative Authorizing ProviderResult TypeResult Alicia Caruso MD98 GENERAL LABFinal ResultPerforming OrganizationAddressty/State/ZIP CodePhone Number [facility] [address] [place] [phone] * LACTIC ACID (02/08/2025 5:01 AM EDT)ComponentValueRef RangeTest MethodAnalysis TimePerformed AtPathologist SignatureLactate0.80.5 - 1.6 mmol/L02/08/2025 5:17 AM [facility] LABORATORYSpecimen (Source)Anatomical Location / LateralityCollection Method / VolumeCollection TimeReceived TimeBloodBLOOD SPECIMEN / UnknownVenipuncture / Elrigac3402/08/2025 5:01 AM EDT02/08/2025 5:12 AM EDT Narrative [facility] - 02/08/2025 5:17 AM EDT This test was developed, and its performance characteristics determined by the Department of Pathology of [facility]. It has not been cleared or approved by the FDA. This test is used for clinical purposes only. Authorizing ProviderResult TypeResult Alicia SENIOR GENERAL LABFinal ResultPerforming OrganizationAddressCity/State/ZIP CodePhone Number [facility] [address] [place] [phone] * (ABNORMAL) HEPATIC FUNCTION PANEL (02/08/2025 5:00 AM EDT)ComponentValueRef RangeTest MethodAnalysis TimePerformed AtPathologist SignatureAlbumin3.93.5 - 5.7 g/dL02/08/2025 5:54 AM [facility]OLOG[facility] LABORATORYBilirubin, Direct0.11 0.03 - 0.18 mg/dL02/08/2025 5:54 AM [facility] LABORATORYBilirubin, Total0.60.3 - 1.0 mg/dL02/08/2025 5:54 AM [facility] LABORATORYAlkaline Gzvzbdkyeuw4656 - 104 IU/L02/08/2025 5:54 AM [facility] LABORATORYALT (SGPT)217 - 52 IU/L02/08/2025 5:54 AM [facility] LABORATORYAST (SGOT)26 13 - 39 IU/L02/08/2025 5:54 AM [facility] LABORATORYProtein, Total5.9(L) 6.0 - 8.3 g/dL02/08/2025 5:54 AM [facility] LABORATORYSpecimen (Source) Anatomical Location / LateralityCollection Method / VolumeCollection Time Received TimeBloodBLOOD SPECIMEN / UnknownVenipuncture / Bklckcp1502/08/2025 5:00 AM EDT02/08/2025 5:21 AM EDT Narrative Authorizing ProviderResult TypeResult StatusGustavo Caruso MD98 GENERAL LABFinal ResultPerforming OrganizationAddressCity/State/ZIP CodePhone Number [facility] [address] [place] [phone] * (ABNORMAL) BASIC METABOLIC PANEL (02/08/2025 5:00 AM EDT)ComponentValueRef RangeTest MethodAnalysis TimePerformed AtPathologist YxphdlbopJsdmqmk709(H)74 - 109 mg/dL02/08/2025 5:54 AM [facility] MBZVSEZZHKLkebpr306108 - 145 mmol/L02/08/2025 5:54 AM [facility] LABORATORYPotassium3.93.5 - 5.0 mmol/L02/08/2025 5:54 AM [facility] LABORATORYCarbon Xafbqjo0955 - 31 mmol/L02/08/2025 5:54 AM [facility] LLDPFSZJEUNdlwaxqg17176 - 107 mmol/L 02/08/2025 5:54 AM [facility] LABORATORYBlood Urea Zysgeren784 - 25 mg/dL02/08/2025 5:54 AM [facility] LABORATORYCreatinine0.750.60 - 1.20 mg/dL02/08/2025 5:54 AM [facility] LABORATORYCalcium9.28.6 - 10.3 mg/dL 02/08/2025 5:54 AM [facility] LABORATORYAnion Vya3042 - 5:54 AM [facility] LABORATORYEstimated GFR (CKD-EPI)80>=60 mL/min/1.16otr6102/08/2025 5:54 AM [facility] LABORATORYComment: 2020 CKD EPI Equation [...] Med 1 Vol. 385 Issue 19 Pages 5625-9972 Specimen (Source)Anatomical Location / LateralityCollection Method / Volume Collection TimeReceived TimeBloodBLOOD SPECIMEN / UnknownVenipuncture / Unknown 02/08/2025 5:00 AM EDT02/08/2025 5:21 AM EDT Narrative Authorizing ProviderResult TypeResult StatusGustavo Caruso MD98 GENERAL LABFinal ResultPerforming OrganizationAddressCity/State/ZIP CodePhone Number [facility] [address] [place] [phone] * (ABNORMAL) COMPLETE BLOOD COUNT (02/08/2025 5:00 AM EDT)ComponentValueRef RangeTest MethodAnalysis TimePerformed AtPathologist SignatureWBC8.84.5 - 11.5 K/uL02/08/2025 5:26 AM [facility] LABORATORYRBC3.67(L)4.00 - 5.20 M/uL 02/08/2025 5:26 AM [facility] HMGBOXDJZANhahtuksdb34.4(L)12.0 - 15.0 g/dL02/08/2025 5:26 AM [facility] QTGMCTEPDIYtfzoihmep29.4(L)36.0 - 46.0 %02/08/2025 5:26 AM [facility] UACASPMSWKZCC5768 - 100 fL02/08/2025 5:26 AM [facility] OIUZJRPZWDHDD51.026.0 - 34.0 pg02/08/2025 5:26 AM [facility] WPJBLKDNCFMIYZ16.132.0 - 35.9 g/dL02/08/2025 5:26 AM [facility] AHFLPQDYNVFrwbhtni140797 - 400 K/uL02/08/2025 5:26 AM [facility] LABORATORYRDW-CV14.411.5 - 14.5 %02/08/2025 5:26 AM [facility] LABORATORYMPV8.17.5 - 11.2 fL02/08/2025 5:26 AM [facility] Specimen (Source)Anatomical Location / LateralityCollection Method / Volume Collection TimeReceived TimeBloodBLOOD SPECIMEN / UnknownVenipuncture / Sugqhdz2402/08/2025 5:00 AM EDT02/08/2025 5:21 AM EDT Narrative Authorizing ProviderResult TypeResult Alicia Caruso MD98 GENERAL LABFinal ResultPerforming OrganizationAddressCity/State/ZIP CodePhone Number [facility] [address] [place] [address] * CT BODY IMAGE IMPORT(TERESA) (02/08/2025 4:31 [...] AM EDT)ComponentValueRef RangeTest MethodAnalysis TimePerformed AtPathologist SignatureVentricular rfil45OONCIAR Atrial Ejzu42VUBLDMNO-S Sxximpjp034mzLEFZAHI vxqkdgnm12lgAGMIR-N kjrbsuxi274kt MUSEQTC CALCULATION(BEZET)454msMUSEP efbh57eexxkalCUNZY axis-22degreesMUSET mrnt87mlrvjodROAQLpxfxxgzpLnpsaf sinus rhythm Normal ECG No previous ECGs available Confirmed by fellow Emile Ornelas ([id number]) on 02/11/2025 2:07:29 PM Confirmed by MIR TORRES ([id number]) on 02/12/2025 12:29:36 PM MUSESpecimen (Source)Anatomical Location / LateralityCollection Method / Volume Collection TimeReceived Time02/08/2025 3:44 AM EDT02/12/2025 12:29 PM EDT Narrative Authorizing ProviderResult TypeResult StatusTo Be AssignedIP VITAL SIGN ORDERS Edited Result - FinalPerforming OrganizationAddressCity/State/ZIP CodePhone Number [facility] [address] [facility] [place] [address] from Last 3 Months Insurance Advance Directives * Full Code (Latest Code Status on File) Date ActivatedDate InactivatedComments02/08/2025 6:02 AM02/09/2025 7:57 PMQuestion AnswerCommentsDocumentation of decision process for this code status:* Patient and surrogate unable or unavailable to discuss.?? There is no previous documentation of code status.?? Defaulting to Full Code
[2025-05-08 17:01] LABS: Hematocrit 40.0 % (36.0-48.0); Hemoglobin 13.0 g/dL (12.0-16.0); Immature Granulocytes Abs Auto 0.01 10^3/uL (0.00-0.03); Immature Granulocytes Pct Auto 0.2 % (0.0-0.5); Lymphocytes Absolute Auto 2.2 10^3/uL (1.2-3.8); Mean Corpuscular HGB Conc 32.5 g/dL (29.9-35.2); Mean Corpuscular Hemoglobin 30.2 pg (26.7-34.0); Mean Corpuscular Volume 92.8 fL (81.0-99.0); Platelet Count 326 10^3/uL (150-450); Red Blood Count 4.31 10^6/uL (4.20-5.40); White Blood Count 6.3 10^3/uL (4.0-11.0)
== END 2025-05-08 16:38 | disposition home or self-care (01) ==
LOC: LAB 16:38
PROVIDERS: PCP Nurse Practitioner Family; Visit Provider Ophthalmology
DX: H02.831 Dermatochalasis of right upper eyelid (principal); H02.834 Dermatochalasis of left upper eyelid
CPT/HCPCS: 36415; 85025